=== PATIENT | male | born 1935 | race Caucasian/White ===

== ENCOUNTER 2016-09-01 12:12 | Outpatient (CLI) | payer MEDICARE, BC ==
[~2016-09-01] VITALS: Ht 177.8 cm; Wt 88.7 kg
[2016-09-01] VITALS (13 sets, daily range): BP systolic 100–125; BP diastolic 51–61; PULSE 57–71; RESP 15–22; TEMP 98.1; O2SAT 94–100; Ht 177.8 cm; Wt 88.7 kg
[~2016-09-01 12:12] MED LIST: ASPI-914 PO; CALC-586 PO; CLOB15CR5 TD; CYAN100063 PO; FERR324T6 PO; FISH1CAP59 PO; FURO40TA5 PO; INSU100C13 SQ; INSU3INS3 SQ; LEVO75TA57 PO; MAGN400C PO; METF-206 PO; NITR0.4T39 SL; OMEP-122 PO; SPIR50TA3 PO; TAMS0.4C47 PO; [UNRECOGNIZED DRUG - CODE] TD
--- NOTE | 2016-09-01 12:23 | NUR ---
ADMIT AMBULATORY TO ROOM 126 WITH DAUGHTER. O2 RA. PATIENT ALERT AND ORIENTED X3. PATIENT AND DAUGHTER ORIENTED TO SURROUNDINGS. BED IN LOWEST POSITION, CALL LIGHT WITHIN REACH, SIDE RAILS UP X2, BED ALARM ACTIVATED. MARSHAL HIGGINS (PRIMARY NURSE) NOTIFIED OF PATIENT'S ARRIVAL.
[2016-09-01 12:54] LABS: INR 1.1 (0.76-1.04)
[2016-09-01] MEDS ORDERED: NORMAL SALINE 100 ML ONE (13:12)
[2016-09-01] MEDS ORDERED: ALBUMIN HUMAN 25% 100 ML IV ONE (13:12)
--- NOTE | 2016-09-01 14:07 | NUR ---
OFF UNIT OFF UNIT VIA WHEELCHAIR WITH RADIOLOGY STAFF. O2 RA. IVL IN PLACE. MARSHAL HIGGINS NOTIFIED.
--- NOTE | 2016-09-01 15:45 | NUR ---
BACK TO UNIT PATIENT BACK TO UNIT AT THIS TIME. PATIENT AMBULATED FROM WHEELCHAIR TO BED. PATIENT VITALS ARE STABLE AND PATIENT IS ON ROOM AIR. PATIENT DENIES CP, NAUSEA, AND SOA.
[2016-09-01] MEDS ORDERED: ALBUMIN HUMAN 25% 50 ML IV ONE ×3 (16:00→18:00)
--- NOTE | 2016-09-01 16:17 | DI ---
Indication:ITS.REASON: R18.8; K74.60 Procedure:US GUIDE PARACENTESIS, INITIAL PARACENTESIS: The procedure including the benefits, risks, and alternatives were explained in detail to the patient. All of his questions were answered. He stated that they understood and wished to proceed. Informed consent was obtained. A preprocedural timeout was performed to confirm the correct patient and procedure. Using sterile technique, local xylocaine anesthesia, and sonographic guidance throughout, a paracentesis is done from a right lateral approach. 9650 ml of straw colored fluid was taken off without complication. Following this, the patient was taken to his recovery room to finish his albumin infusion. Impression: Successful thoracentesis performed with 9650 mL of fluid removed. Brendan Chappell RPA/ROBINSON performed this under my personal supervision. .
--- NOTE | 2016-09-01 18:15 | NUR ---
DISMISSAL DISCHARGE INSTRUCTIONS, MEDICATIONS, AND EDUCATION ON PARACENTESIS GIVEN AND DISCUSSED WITH PATIENT. DISCUSSED S/S OF INFECTION. ALL QUESTIONS AND CONCERNS ANSWERED. IVL D/C, CATHETER TIP INTACT. DISMISSED TO ER ENTRANCE VIA WHEELCHAIR WITH NURSING STAFF. DISMISSED WITH DAUGHTER PER PRIVATE OWN VEHICLE.
== END 2016-09-01 18:15 | disposition home or self-care (01) ==
LOC: IMA.BED 12:12 → SRG 12:17 → IMA.BED 18:15
PROVIDERS: ATTEND Radiology Diagnostic Radiology
DX: K74.60 Unspecified cirrhosis of liver (principal); R18.8 Other ascites
CPT/HCPCS: 36415; 49083; 85049; 85610; J7050; P9047

== ENCOUNTER 2016-09-08 12:40 | Outpatient (CLI) | payer MEDICARE, BC ==
[2016-09-08] VITALS (20 sets, daily range): BP systolic 91–132; BP diastolic 55–66; PULSE 56–64; RESP 18–22; TEMP 96.3–98.1; O2SAT 95–100
--- NOTE | 2016-09-08 12:50 | NUR ---
ADMIT PATIENT ADMITTED TO ROOM 134 AT THIS TIME. PATIENT VITALS ARE STABLE AND PATIENT IS ON ROOM AIR. PATIENT AMBULATED TO ROOM WITH NO ASSISTANCE. WILL CONTINUE TO MONITOR.
[2016-09-08 13:38] LABS: INR 1.06 (0.76-1.04); PROTHROMBIN TIME 11.6 SEC (9.31-12.49)
--- NOTE | 2016-09-08 15:00 | NUR ---
OFF UNIT PATIENT IS OFF UNIT AT THIS TIME. PATIENT LEFT VIA WHEELCHAIR AND IMAGING STAFF.
[2016-09-08] MEDS ORDERED: NORMAL SALINE 100 ML ONE (15:10)
[2016-09-08] MEDS ORDERED: ALBUMIN HUMAN 25% 12.5gm 50ml IV ONE (15:11)
--- NOTE | 2016-09-08 16:30 | NUR ---
BACK TO UNIT PATIENT BACK TO UNIT AT THIS TIME. PATIENT AMBULATED FROM US WHEELCHAIR TO BED. PATIENT VITALS ARE STABLE AND PATIENT IS ON ROOM AIR. WILL CONTINUE TO MONITOR.
--- NOTE | 2016-09-08 16:41 | DI ---
Indication:ITS.REASON Procedure:US GUIDE PARACENTESIS, SUBSEQ PARACENTESIS: The procedure including the benefits, risks, and alternatives were explained in detail to the patient. All of his questions were answered. He stated that they understood and wished to proceed. Informed consent was obtained. A preprocedural timeout was performed to confirm the correct patient and procedure. Using sterile technique, local xylocaine anesthesia, and sonographic guidance throughout, a paracentesis is done from a right lateral approach. 8400 ml of straw colored fluid was taken off without complication. Following this, the patient was taken back to his recovery room to finish his albumin infusion. Impression: Successful paracentesis performed with 8.4 L of fluid removed. Brendan Chappell RPA/ROBINSON performed this under my personal supervision. .
[2016-09-08] MEDS ORDERED: ALBUMIN HUMAN 25% 50 ML IV SCH (17:00)
--- NOTE | 2016-09-08 18:15 | NUR ---
DISCHARGE PATIENT IS ALERT AND ORIENTED X3. PATIENT VITALS ARE STABLE AND PATIENT IS ON ROOM AIR. PATIENT DENIES CP, NAUSEA, AND SOA. DISCHARGE INSTRUCTIONS INCLUDE: CONTINUES MEDICATIONS, DI FOR PARACENTESIS, ACTIVITY/BATHING, RETURN TO WORK, WHEN TO RESTART HOME MEDICATIONS, REASONS TO CALL DOCTOR AND OR SEEK IMMEDIATE CARE, INSERTION SITE CARE, AND SIGNS AND SYMPTOMS OF INFECTION. PERSONAL BELONGINGS RETURNED AND ID BAND REMOVED. IV DISCONTINUED. PATIENT LEFT VIA WHEELCHAIR FROM ER ENTRANCE WITH NURSING STAFF. PATIENT TRANSPORTED HOME FOR SELF CARE BY DAUGHTER.
== END 2016-09-08 18:15 | disposition home or self-care (01) ==
LOC: IMA.BED 12:40 → SRG 12:40 → IMA.BED 18:15
PROVIDERS: ATTEND Radiology Diagnostic Radiology
DX: K74.60 Unspecified cirrhosis of liver (principal); R18.8 Other ascites
CPT/HCPCS: 36415; 49083; 85049; 85610; J7050; P9047

== ENCOUNTER 2016-09-16 10:58 | Outpatient (CLI) | payer MEDICARE, BC ==
[~2016-09-16] VITALS: Ht 177.8 cm; Wt 81.4 kg
[2016-09-16] VITALS (18 sets, daily range): BP systolic 90–128; BP diastolic 52–71; PULSE 58–66; RESP 16–20; TEMP 97.9; O2SAT 99–100; Ht 177.8 cm; Wt 81.4 kg
--- NOTE | 2016-09-16 11:05 | NUR ---
ADMISSION PATIENT ADMITTED TO ROOM 120 AMBULATORY ACCOMPANIED BY FAMILY. IN NO ACUTE DISTRESS. ON ROOM AIR. WILL CONTINUE TO MONITOR.
[2016-09-16] MEDS ORDERED: ALBUMIN HUMAN 25% 200 ML IV ONE (12:20)
[2016-09-16] MEDS ORDERED: NORMAL SALINE 50 ML IV ONE (12:21)
--- NOTE | 2016-09-16 12:25 | NUR ---
TRANSFER PATIENT TRANSFERRED TO RADIOLOGY AT THIS TIME ON ROOM AIR. DENIES QUESTIONS OR CONCERNS.
[2016-09-16] MEDS ORDERED: ALBUMIN HUMAN 25% 12.5gm 50ml IV ONE (13:30)
--- NOTE | 2016-09-16 13:34 | NUR ---
CM CM IN TO VISIT WITH PT. HE IS AT PROCEDURE. HIS SON AND D-I-L ARE PRESENT. THEY DENY DC NEEDS. THEY ARE GIVEN CM CONTACT INFORMATION. Addendum: 09/16/16 at 1337 by SHELIA FORD RN Amended: Links added.
--- NOTE | 2016-09-16 14:00 | NUR ---
RETURN PATIENT RETURNED TO ROOM 120 VIA WHEELCHAIR ON ROOM AIR. BANDAID C/D/I. DENIES PAIN. DENIES SOB. STABLE AT THIS TIME. WILL CONTINUE TO MONITOR.
--- NOTE | 2016-09-16 14:29 | DI ---
Indication:ITS.REASON ascites Procedure:GUIDE PARACENTESIS, SUBSEQ PARACENTESIS: The procedure including the benefits, risks, and alternatives were explained in detail to the patient. All of his questions were answered. He stated that they understood and wished to proceed. Informed consent was obtained. A preprocedural timeout was performed to confirm the correct patient and procedure. Using sterile technique, local xylocaine anesthesia, and sonographic guidance throughout, a paracentesis is done from a right lateral approach. 8.2 liters of straw colored fluid was taken off without complication. Following this, the patient was taken back to his recovery room to finish his albumin infusion. Impression: Successful paracentesis performed with 8.2 L of fluid removed. Brendan Chappell RPA/ROBINSON performed this under my personal supervision. .
[2016-09-16] MEDS ORDERED: ALBUMIN HUMAN 25% 50 ML IV ONE ×4 (14:30→17:30)
[2016-09-16] MEDS ORDERED: ACETAMINOPHEN 325 MG TABLET PO PRN (15:00)
--- NOTE | 2016-09-16 16:25 | NUR ---
DISCHARGE DISMISSAL INSTRUCTIONS GIVEN AND REVIEWED WITH PATIENT AND FAMILY. INSTRUCTIONS INCLUDED DIET, ACTIVITY, DRESSING SITE CARE, S/S TO WATCH FOR, WHEN TO CALL DR OR 911, RESTRICTIONS, MEDICATIONS, EBSCO NOTES ON PARACENTESIS. BANDAID TO RIGHT LOWER BACK C/D/I. DENIES PAIN. DENIES QUESTIONS RO CONCERNS. VERBALIZED UNDERSTANDING OF ALL INSTRUCTIONS. IV DC'D -CATHETER TIP INTACT. PATIENT DISMISSED VIA WHEELCHAIR THROUGH ER EXIT ACCOMPANIED BY STAFF AND INTO VEHICLE WITH FAMILY.
== END 2016-09-16 16:30 | disposition home or self-care (01) ==
LOC: IMA.BED 10:58 → SRG 10:59 → IMA.BED 16:30
PROVIDERS: ATTEND Radiology Diagnostic Radiology
DX: R18.8 Other ascites (principal); K74.60 Unspecified cirrhosis of liver
CPT/HCPCS: 49083; J7050; P9047

== ENCOUNTER 2016-09-23 10:35 | Outpatient (CLI) | payer MEDICARE, BC ==
[2016-09-23] VITALS (12 sets, daily range): BP systolic 107–124; BP diastolic 56–64; PULSE 56–63; RESP 16–22; TEMP 97.2–98.1; O2SAT 99–100; Ht 177.8 cm; Wt 73.5 kg
[~2016-09-23] VITALS: Ht 177.8 cm; Wt 73.5 kg
[~2016-09-23 10:35] MED LIST changes: +ALBUMIN HUMAN 25% 12.5gm 50ml IV ONE
--- NOTE | 2016-09-23 10:45 | NUR ---
ARRIVAL PT AMBULATED TO ROOM 116. VS ASSESSED, INITIAL ASSESSMENT DONE. WILL START IV. PT RESTING IN BED WITH ALARM. CALL LIGHT WITHIN REACH.
[2016-09-23] MEDS ORDERED: ALBUMIN HUMAN 25% 200 ML IV ONE (11:46)
[2016-09-23] MEDS ORDERED: NORMAL SALINE 100 ML ONE (11:46)
--- NOTE | 2016-09-23 12:00 | NUR ---
OFF UNIT PT TO RADIOLOGY WITH MUNA ARAYA, C BY UNIT.
[2016-09-23] MEDS ORDERED: ALBUMIN HUMAN 25% 12.5gm 50ml IV ONE (12:45)
--- NOTE | 2016-09-23 13:38 | NUR ---
ARRIVAL PT TO ROOM 116 BY WHEELCHAIR ACCOMPANIED BY MUNA ARAYA C. VS STABLE. ALBUMNIN RUNNING. PT RESTING IN BED WITH ALARM. CALL LIGHT WITHIN REACH. WILL CONTINUE TO MONITOR.
--- NOTE | 2016-09-23 13:55 | DI ---
Indication: ITS.REASON: K74.60 PROCEDURE: US GUIDE PARACENTESIS, INITIAL: Encounter: Initial Comparison: September 16, 2016 PARACENTESIS: The procedure including the benefits, risks, and alternatives were explained in detail to the patient. All of his questions were answered. He stated that they understood and wished to proceed. Informed consent was obtained. A preprocedural timeout was performed to confirm the correct patient and procedure. Using sterile technique, local xylocaine anesthesia, and sonographic guidance throughout, a paracentesis is done from a left lateral approach. 8.2 liters of straw colored fluid was taken off without complication. Following this, the patient was taken back to his recovery room to finish his albumin infusion. Impression: Successful paracentesis performed with 8.2 L of fluid removed. .
[2016-09-23] MEDS: ALBUMIN HUMAN 25% 50 ML IV SCH ×2 (14:00→15:06)
[2016-09-23] MEDS ORDERED: ALBUMIN HUMAN 25% 50 ML IV SCH (14:00)
--- NOTE | 2016-09-23 16:36 | NUR ---
DISCHARGE PT DISCHARGED TO HOME IN GOOD CONDITION. DISCHARGE INSTRUCTIONS REVIEWED AND PT/FAMILY VERBALIZED UNDERSTANDING. IV REMOVED. PT TOLERATED ALBUMIN WELL. PT EXITED THROUGH ED ENTRANCE.
== END 2016-09-23 16:21 | disposition home or self-care (01) ==
LOC: IMA.BED 10:35 → SRG 10:35 → IMA.BED 16:21
PROVIDERS: ATTEND Radiology Diagnostic Radiology
DX: K74.60 Unspecified cirrhosis of liver (principal); R18.8 Other ascites
CPT/HCPCS: 49083; J7050; P9047

== ENCOUNTER 2016-09-30 07:43 | Outpatient (CLI) | payer MEDICARE, BC ==
[2016-09-30] VITALS (19 sets, daily range): BP systolic 94–127; BP diastolic 55–69; PULSE 56–73; RESP 16–24; TEMP 96–96.1; O2SAT 100; Ht 177.8 cm; Wt 74.1 kg
[~2016-09-30] VITALS: Ht 177.8 cm; Wt 74.1 kg
[~2016-09-30 07:43] MED LIST changes: -ALBUMIN HUMAN 25% 12.5gm 50ml IV ONE
--- NOTE | 2016-09-30 07:50 | NUR ---
ARRIVED PT ARRIVED TO ROOM VIA AMBULATION WITH FAMILY PRESENT. PT GETTING SETTLED IN ROOM AT THIS TIME.
[2016-09-30 08:37] LABS: INR 1.12 (0.76-1.04); PROTHROMBIN TIME 12.2 SEC (9.31-12.49)
[2016-09-30] MEDS ORDERED: ALBUMIN HUMAN 25% 100 ML IV ONE (09:29)
[2016-09-30] MEDS ORDERED: ALBUMIN HUMAN 25% 50 ML IV ONE ×3 (09:29→13:15)
[2016-09-30] MEDS ORDERED: NORMAL SALINE 50 ML IV ONE (09:29)
--- NOTE | 2016-09-30 10:00 | NUR ---
TO RADIOLOGY Patient transported to radiology for ultrasound guided paracentesis procedure. Patient has been fully admitted and consent signed. Patient has had this procedure previously and is aware of what to expect and the recovery expectations. These were reviewed and he expressed no further questions. Education Carenotes were given on Paracentesis. Patient is accompanied by his daughter who will wait in the room.
--- NOTE | 2016-09-30 11:47 | DI ---
Indication:ITS.REASON: ASCITES, CIRRHOSIS Procedure:US GUIDE PARACENTESIS, SUBSEQ PARACENTESIS: The procedure including the benefits, risks, and alternatives were explained in detail to the patient. All of his questions were answered. He stated that they understood and wished to proceed. Informed consent was obtained. A preprocedural timeout was performed to confirm the correct patient and procedure. Using sterile technique, local xylocaine anesthesia, and sonographic guidance throughout, a paracentesis is done from a right lateral approach. 6700 ml of straw colored fluid was taken off without complication. Following this, the patient was taken back to his recovery room to finish his albumin infusion. Impression: Successful paracentesis with 6700 mL of fluid removed. Brendan Chappell RPA/ROBINSON performed this under my personal supervision. .
--- NOTE | 2016-09-30 13:53 | NUR ---
CM CM IN TO VISIT WITH PT. HE IS ALERT AND ORIENTED. HIS DAUGHTER IS PRESENT. THEY DENY DC NEEDS. PT PLANS TO RETURN HOME. THEY ARE GIVEN CM CONTACT INFORMATION. Addendum: 09/30/16 at 1353 by SHELIA FORD RN Amended: Links added.
--- NOTE | 2016-09-30 13:59 | NUR ---
DM screen RD visited with patient, who was in bed, and his daughter was at his bedside. He has had DM many years and manages with basal/bolus inulin. he eats 3 meals daily and usually drinks water and one SF soda daily. He checks his BG twice daily, and has juice and milk on hand for hypoglycemia.
--- NOTE | 2016-09-30 14:45 | NUR ---
DISCHARGE Chris discharged to home in care of his daughter who will drive. Transported to vehicle per wheelchair after being up to void without lightheadedness and a short walk in the hallways assisted by nurse jonathon Boo. Blood pressure recheck after a systolic pressure in the mid 90's (asymptomatic) was improved. Procedure site was rechecked prior to discharge and bandaid is clean, dry and intact. Patient denies pain or abdominal cramping. 4 vials of Albumin were infused in total per order, and patient tolerated this well. Lungs were clear after the infusions. Discharge teaching was completed and we reviewed the information in the discharge packet together, including signs and symptoms to report to the physician or to seek immediate care for. Patient and daughter verbalized understanding. Regarding diabetes, the patient declined to take any insulin with the sandwich and jello that he ate, and was uncertain as to the actual dose of his Lantus. He was encouraged to check his blood sugar and resume his Novolog with supper rather than waiting for his insulins to resume until the morning. He was also encouraged to verify his home Lantus dose and bring that on his next visit so that we can make sure that this is correct in our system. Verbalized understanding. He understands that he should restart the aspirin that was on hold for the procedure starting tomorrow morning.
== END 2016-09-30 14:45 | disposition home or self-care (01) ==
LOC: IMA 07:43 → SRG 07:45 → IMA 14:45
PROVIDERS: ATTEND Radiology Diagnostic Radiology
DX: R18.8 Other ascites (principal); K74.60 Unspecified cirrhosis of liver
CPT/HCPCS: 36415; 49083; 85049; 85610; J7050; P9047

== ENCOUNTER 2016-10-07 08:23 | Outpatient (CLI) | payer MEDICARE, BC ==
[~2016-10-07] VITALS: Ht 177.8 cm; Wt 73.4 kg
[2016-10-07] VITALS (19 sets, daily range): BP systolic 90–126; BP diastolic 44–64; PULSE 58–71; RESP 16–41; TEMP 97–97.1; O2SAT 98–100; Ht 177.8 cm; Wt 73.4 kg
--- NOTE | 2016-10-07 08:30 | NUR ---
ARRIVAL AMBULATORY TO ROOM 123. O2 RA. PATIENT ALERT AND ORIENTED X3.
[2016-10-07] MEDS ORDERED: ALBUMIN HUMAN 25% 200 ML IV ONE (09:02)
--- NOTE | 2016-10-07 10:00 | NUR ---
TO RADIOLOGY PT TRANSPORTED TO RADIOLOGY AT THIS TIME VIA WHEELCHAIR AND ACCOMPANIED BY STAFF. PT ALERT AND ORIENTED. VITAL SIGNS STABLE ON ROOM AIR. WILL CONTINUE TO MONITOR.
[2016-10-07] MEDS ORDERED: NORMAL SALINE 50 ML IV ONE (10:13)
--- NOTE | 2016-10-07 11:50 | NUR ---
RETURN PT TO ROOM 123 BY WHEELCHAIR ACCOMPANIED BY IMAGING. PT TRANSFERRED SELF FROM WHEELCHAIR TO BED.VS STABLE. PT RESTING IN BED WITH ALARM. CALL LIGHT WITHIN REACH. WILL CONTINUE TO MONITOR.
[2016-10-07] MEDS: ALBUMIN HUMAN 25% 50 ML IV SCH ×2 (12:42→13:45)
--- NOTE | 2016-10-07 13:09 | DI ---
Indication:ITS.REASON: R18.8 ASCITES; K74.60 CIRRHOSIS Procedure:US GUIDE PARACENTESIS, INITIAL PARACENTESIS: The procedure including the benefits, risks, and were explained in detail to the patient. All of his questions were answered. He stated that they understood and wished to proceed. Informed consent was obtained. A preprocedural timeout was performed to confirm the correct patient and procedure. Using sterile technique, local xylocaine anesthesia, and sonographic guidance throughout, a paracentesis is done from a right lateral approach. 7.5 liters of straw colored fluid was taken off without complication. Following this, the patient was taken back to his recovery room to finish his albumin infusion. Impression: Successful paracentesis performed with 7.5 L of fluid removed. Brendan Chappell RPA/ROBINSON performed this under my personal supervision. .
[2016-10-07] MEDS ORDERED: ACETAMINOPHEN 325 MG TABLET PO PRN (14:00)
--- NOTE | 2016-10-07 14:53 | NUR ---
DISCHARGE INSTRUCTIONS REVIEWED ABD PARACENTESIS WITH PT AND SON. PT'S QUESTIONS ANSWERED AND PT VERBALIZED UNDERSTANDING. PT RESTING IN BED. CALL LIGHT WITHIN REACH. WILL CONTINUE TO MONITOR.
--- NOTE | 2016-10-07 15:15 | NUR ---
DISCHARGE PT EXITED BY WHEELCHAIR ACCOMPANIED BY SON AND NURSING STAFF. PACKET GIVEN TO PT.
== END 2016-10-07 15:02 | disposition home or self-care (01) ==
LOC: IMA 08:23 → SRG 08:24 → IMA 15:02
PROVIDERS: ATTEND Radiology Diagnostic Radiology
DX: R18.8 Other ascites (principal); K74.60 Unspecified cirrhosis of liver
CPT/HCPCS: 49083; J7050; P9047

== ENCOUNTER 2016-10-14 10:51 | Outpatient (CLI) | payer MEDICARE, BC ==
[2016-10-14] VITALS (19 sets, daily range): BP systolic 95–124; BP diastolic 54–67; PULSE 54–64; RESP 16–27; TEMP 96.6–96.7; O2SAT 98–100; Ht 177.8 cm; Wt 81.0 kg
[~2016-10-14] VITALS: Ht 177.8 cm; Wt 81.0 kg
--- NOTE | 2016-10-14 11:00 | NUR ---
ADMIT PATIENT ARRIVES TO ROOM 133 AT THIS TIME. AMBULATES INDEPENDENTLY. PATIENT IS SETTLE IN ROOM. FAMILY AT BEDSIDE
--- NOTE | 2016-10-14 11:00 | NUR ---
Admit Pt admitted to room 133 for procedure. Pt ambulated to room, co soa/difficulty breathing.
[2016-10-14] MEDS ORDERED: INSU100I3 SQ (11:21)
--- NOTE | 2016-10-14 12:00 | NUR ---
CONSENT SIGNED FOR ULTRA SOUND GUIDED PARACENTESIS.
--- NOTE | 2016-10-14 12:45 | NUR ---
PROCEDURE PATIENT LEAVES FOR A PROCEDURE AT THIS TIME.
[2016-10-14] MEDS ORDERED: ALBUMIN HUMAN 25% 200 ML IV ONE (12:47)
[2016-10-14] MEDS ORDERED: NORMAL SALINE 50 ML IV ONE (12:47)
[2016-10-14] MEDS ORDERED: ALBUMIN HUMAN 25% 12.5gm 50ml IV ONE (13:30)
--- NOTE | 2016-10-14 13:53 | NUR ---
PATIENT RETURNED 6.5L FLUID REMOVED. PATIENT SETTLES BACK IN ROOM 133. NO CONCERNS NOTED. VSS. DRESSING INTACT TO RIGHT ABDOMEN
[2016-10-14] MEDS ORDERED: ALBUMIN HUMAN 25% 50 ML IV ONE (15:00)
--- NOTE | 2016-10-14 15:26 | DI ---
Indication:ITS.REASON: ASCITES, CIRRHOSIS Procedure:US GUIDE PARACENTESIS, INITIAL PARACENTESIS: The procedure including the benefits, risks, and alternatives were explained in detail to the patient. All of his questions were answered. He stated that they understood and wished to proceed. Informed consent was obtained. A preprocedural timeout was performed to confirm the correct patient and procedure. Using sterile technique, local xylocaine anesthesia, and sonographic guidance throughout, a paracentesis is done from a right lateral approach. 6500 ml of straw colored fluid was taken off without complication. Following this, the patient was taken back to his recovery room to finish his albumin infusion. Impression: Successful paracentesis performed with 6500 mL of fluid removed. Brendan Chappell RPA/ROBINSON performed this under my personal supervision. .
--- NOTE | 2016-10-14 17:45 | NUR ---
DISCHARGED PATIENT DISCHARGE AND MEDICATION INSTRUCTIONS ARE GIVE. PATIENT IS WHEELED BY STAFF OUT TO FAMILY VEHICLE ACCOMPANIED BY SON AND DAUGHTER IN-LAW. ALBUMIN 25% 50GMS COMPLETED INFUSING. PATIENT QUESTIONS ARE ANSWERED.
[2016-10-14] MEDS ORDERED: ACETAMINOPHEN 325 MG TABLET PO PRN (18:15)
--- NOTE | 2016-10-18 11:15 | NUR ---
ATTEMPTED POST HOSPITAL FOLLOW UP PHONE CALL #1, NO ANSWER, VOICE MESSAGE MAILBOX IS FULL AND UNABLE TO LEAVE A MESSAGE.
== END 2016-10-14 17:45 | disposition home or self-care (01) ==
LOC: IMA 10:51 → SRG 10:52 → IMA 17:45
PROVIDERS: ATTEND Radiology Diagnostic Radiology
DX: R18.8 Other ascites (principal); K74.69 Other cirrhosis of liver
CPT/HCPCS: J7050; P9047

== ENCOUNTER 2016-10-21 10:49 | Outpatient (CLI) | payer MEDICARE, BC ==
[~2016-10-21] VITALS: Ht 177.8 cm; Wt 77.7 kg
[2016-10-21] VITALS (8 sets, daily range): BP systolic 106–122; BP diastolic 56–65; PULSE 55–61; RESP 14–22; TEMP 96.2; O2SAT 99–100; Ht 177.8 cm; Wt 77.7 kg
[~2016-10-21 10:49] MED LIST changes: -INSU100C13 SQ; +INSU100I3 SQ
--- NOTE | 2016-10-21 10:55 | NUR ---
Admit Pt admitted to room 109 at this time. Pt ambulatory and denies SOA/difficulty breathing.
[2016-10-21] MEDS ORDERED: ALBUMIN HUMAN 25% 50 ML IV ONE ×4 (11:30→15:00)
--- NOTE | 2016-10-21 11:31 | NUR ---
CM CM VISITED PT AND DAUGHTER. CM EXPLAINED ROLE AND PROVIDED CONTACT INFORMATION. PT DENIES NEEDS. PT/DAUGHTER AWARE TO CONTACT CM IF NEEDS ARISE.
--- NOTE | 2016-10-21 12:34 | NUR ---
OFF UNIT PATIENT IS OFF UNIT AT THIS TIME. PATIENT IS ALERT AND ORIENTED X3. PATIENT LEFT VIA WHEELCHAIR AND IMAGING STAFF.
[2016-10-21] MEDS ORDERED: ALBUMIN HUMAN 25% 100 ML IV ONE (12:38)
--- NOTE | 2016-10-21 13:45 | NUR ---
BACK TO UNIT PATIENT IS BACK TO UNIT AT THIS TIME. PATIENT VITALS ARE STABLE AND PATIENT IS ON ROOM AIR.
--- NOTE | 2016-10-21 14:25 | DI ---
Indication:ITS.REASON: R18.8; K74.0 Procedure:US GUIDE PARACENTESIS, INITIAL PARACENTESIS: The procedure including the benefits, risks, and alternatives were explained in detail to the patient. All of his questions were answered. He stated that they understood and wished to proceed. Informed consent was obtained. A preprocedural timeout was performed to confirm the correct patient and procedure. Using sterile technique, local xylocaine anesthesia, and sonographic guidance throughout, a paracentesis is done from a right lateral approach. 5200 ml of straw colored fluid was taken off without complication. Following this, the patient was taken back to his recovery room to finish his albumin infusion. Impression: Successful paracentesis performed with 5200 mL of fluid removed. Brendan Chappell RPA/ROBINSON performed this under my personal supervision. .
[2016-10-21] MEDS ORDERED: ALBUMIN HUMAN 25% 12.5gm 50ml IV ONE (14:48)
--- NOTE | 2016-10-21 15:40 | NUR ---
Discharge Pt discharged home to care of family. Discharge instructions reviewed and hard copies given. Activity guidelines, s/sx to report, medications, follow-up appointments and diet reviewed. Pt verbalized understanding. Pt denies SOA/difficulty breathing, CP, N/V. Pt in stable condition. Wheeled to ED entrance to family vehicle.
== END 2016-10-21 15:40 | disposition home or self-care (01) ==
LOC: IMA 10:49 → SRG 10:50 → IMA 15:40
PROVIDERS: ATTEND Radiology Diagnostic Radiology
DX: R18.8 Other ascites (principal); K72.90 Hepatic failure, unspecified without coma
CPT/HCPCS: P9047 ×4

== ENCOUNTER 2016-10-28 10:58 | Outpatient (CLI) | payer MEDICARE, BC ==
[2016-10-28] VITALS (13 sets, daily range): BP systolic 97–127; BP diastolic 54–64; PULSE 55–65; RESP 15–19; TEMP 95.9–97.5; O2SAT 99–100; Ht 177.8 cm; Wt 73.4 kg
[~2016-10-28] VITALS: Ht 177.8 cm; Wt 73.4 kg
--- NOTE | 2016-10-28 11:05 | NUR ---
ADMIT PT AMBULATORY TO ROOM 132. SON ATTENDING.
[2016-10-28] MEDS: ALBUMIN HUMAN 25% 200 ML IV SCH ×3 (11:23→14:05)
--- NOTE | 2016-10-28 12:44 | NUR ---
LEFT UNIT PT LEFT UNIT TO IMAGING WITH LEIGH COOK. ALBUMIN RUNNING AT THIS TIME.
[2016-10-28] MEDS ORDERED: ALBUMIN HUMAN 25% 100 ML IV ONE (13:07)
[2016-10-28] MEDS ORDERED: ALBUMIN HUMAN 25% 12.5gm 50ml IV ONE (14:00)
[2016-10-28] MEDS ORDERED: POTASSIUM PO (14:55)
--- NOTE | 2016-10-28 15:02 | NUR ---
RETURN RETURNED TO ROOM 132 PER W/C. WAS ABLE TO STAND AND PIVOT TO S.U. BED. PUNCTURE SITE COVERED WITH D&I BAND AIDE
[2016-10-28] MEDS ORDERED: NORMAL SALINE 500 ML IV ONE (15:30)
--- NOTE | 2016-10-28 16:01 | DI ---
Indication:ITS.REASON: ASCITES Procedure:US GUIDE PARACENTESIS, SUBSEQ PARACENTESIS: The procedure including the benefits, risks, and alternatives were explained in detail to the patient. All of his questions were answered. He stated that they understood and wished to proceed. Informed consent was obtained. A preprocedural timeout was performed to confirm the correct patient and procedure. Using sterile technique, local xylocaine anesthesia, and sonographic guidance throughout, a paracentesis is done from a right lateral approach. 5400 ml of straw colored fluid was taken off without complication. Following this, the patient was taken back to his recovery room to finish his albumin infusion. Impression: Successful paracentesis performed with 5400 mL of fluid removed. Brendan Chappell RPA/ROBINSON performed this under my personal supervision. .
--- NOTE | 2016-10-28 17:00 | NUR ---
DISMISSAL WENT OVER WRITTEN DISMISSAL INSTRUCTIONS WITH PT AND PT'S SON INCLUDING DIET, ACTIVITY, S/SX TO REPORT, WOUND CARE. BOTH VERBALIZED UNDERSTANDING. PT'S PERSONAL BELONGINGS GATHERED. PT TAKEN OUT OF [place] [facility] [place] ENTRANCE FOR TRANSPORT HOME BY SON.
== END 2016-10-28 17:00 | disposition home or self-care (01) ==
LOC: SRG 10:58 → IMA.BED 10:58 → SRG 10:59 → IMA.BED 17:00
PROVIDERS: ATTEND Radiology Diagnostic Radiology
DX: R18.8 Other ascites (principal); K74.0 Hepatic fibrosis
CPT/HCPCS: 49083; P9047

== ENCOUNTER 2016-11-04 14:25 | Inpatient (IN) | payer MEDICARE, BC ==
[~2016-11-04] VITALS: Ht 177.8 cm; Wt 77.9 kg
[~2016-11-04 14:25] MED LIST changes: -ASCO500T9 PO
[2016-11-04 14:38] VITALS: Ht 177.8 cm; Wt 77.9 kg
--- OUTSIDE RECORDS SUMMARY | 2016-11-04 14:40 | XMS REPORT | CCD ---
Author Author GIBRAN GARCIA Organization Unknown Address [address], [place] [id number] Phone 0 Care Team Providers Care Infusion Therapy Nurse Name Role Phone Calvin KUMAR Attending Physician [phone] Vital Signs Unknown or Not Available. Allergies Allergy Code Allergy Type Reaction Status No Known Allergies 0 No known allergies Active Procedures Unknown or Not Available. History of Immunizations Immunization Code Date influenza, whole 16 03/19/2015 pneumococcal polysaccharide PPV23 33 09/1998 tetanus toxoid, adsorbed 35 06/22/2016 Problems Unknown or Not Available. Results PSA - Collect Date/Time: 07/26/2016 14:55 Test Name Code Test Result Test Units Test Ref Range PSA 3.16 ng/mL L=0.00 H=4.00 Active Medications Unknown or Not Available. Medications Administered During Visit Unknown or Not Available. Encounters Unknown or Not Available. Social History Smoking Status Code Start Date End Date Never smoker [id number] Patient Decision Aids Unknown or Not Available. Discharge Instructions You were admitted to [facility] on 07/26/2016 14:37 You had the following tests done: PSA You were discharged from [facility] on 07/26/2016 14:37 Should you have any questions prior to discharge, please contact a member of your healthcare team. If you have left the hospital and have any questions, please contact your primary care physician. Chief Complaint and Reason For Visit Chief Complaint Date of Onset LAB Function Status Unknown or Not Available. Plan of Care Unknown or Not Available. Referral/Transition of Care Unknown or Not Available.
--- OUTSIDE RECORDS SUMMARY | 2016-11-04 14:41 | XMS REPORT | CCD ---
Author Author GIBRAN GARCIA Organization Unknown Address [address], [place] [id number] Phone 0 Care Team Providers [facility] Director Name Role Phone LASHA FARRIS Attending Physician [phone] Vital Signs Unknown or Not Available. Allergies Allergy Code Allergy Type Reaction Status No Known Allergies 0 No known allergies Active Procedures Unknown or Not Available. History of Immunizations Immunization Code Date influenza, whole 16 03/19/2015 pneumococcal polysaccharide PPV23 33 09/1998 Problems Unknown or Not Available. Results COMP METABOLIC - Collect Date/Time: 09/22/2015 15:29 Test Name Code Test Result Test Units Test Ref Range GLUCOSE 114 mg/dL L=70 H=110 BUN 8 mg/dL L=7 H=18 CREATININE 1.00 mg/ dL L=0.60 H=1.30 AGE 80 YEARS GFR 71.7 SODIUM 142 mmol/L L=136 H=145 POTASSIUM 4.2 mmol/ L L=3.5 H=5.1 CHLORIDE 105 mmol/L L=98 H=107 CO2 32 mmol/L L=21 H=32 CALCIUM 8.7 mg/dL L=8.5 H=10.1 AST 28 U/L L=15 H=37 ALT 25 U/L L=12 H=78 ALKALINE PHOS 137 U/ L L=46 H=116 TOTAL PROTEIN 6.6 g/ dL L=6.4 H=8.2 ALBUMIN 3.0 g/dL L=3.4 H=5.0 TOTAL BILI 0.60 mg/ dL L=0.00 H=1.00 CBC W/ DIFF - Collect Date/Time: 09/22/2015 15:29 Test Name Code Test Result Test Units Test Ref Range WBC 3.4 x10^3 L=4.8 H=10.8 RBC 3.57 x10^6 L=4.70 H=6.10 HEMOGLOBIN 10.5 g/ dL L=14.0 H=18.0 HEMATOCRIT 31.6 % L=42.0 H=52.0 MCV 89 fL L=80 H=100 MCH 29.6 pg L=27.0 H=33.0 MCHC 33.4 g/dL L=33.0 H=37.0 RDW 16.4 % L=11.5 H=14.5 PLATELETS 146 x10^3 L=150 H=450 MPV 6.8 fL L=7.8 H=11.0 NEUTROPHILS 50.1 % L=40.0 H=80.0 LYMPHOCYTES 36.6 % L=20.0 H=45.0 MONOCYTES 10.2 % L=0.0 H=10.0 EOSINOPHILS 2.2 % L=0.0 H=5.0 BASOPHILS 0.9 % L=0.0 H=2.0 REFLEX MAN DIFF NO N /A PT/INR - Collect Date/Time: 09/22/2015 15:29 Test Name Code Test Result Test Units Test Ref Range PT 10.2 Secs L=9.2 H=10.8 INR 1.02 L=0.00 H=4.00 PTT - Collect Date/Time: 09/22/2015 15:29 Test Name Code Test Result Test Units Test Ref Range PTT 27.0 Secs L=22.0 H=30.0 AMMONIA - Collect Date/Time: 09/22/2015 15:29 Test Name Code Test Result Test Units Test Ref Range AMMONIA 0 umol/L L=19 H=54 Active Medications Unknown or Not Available. Medications Administered During Visit Unknown or Not Available. Encounters Encounter Diagnosis Diagnosis Code Start Date Other ascites R188 09/22/2015 Social History Smoking Status Code Start Date End Date Never smoker [id number] Patient Decision Aids Unknown or Not Available. Discharge Instructions You were admitted to [facility] on 09/22/2015 15:20 with a principal diagnosis of Other ascites You had the following tests done: AMMONIA CBC W/ DIFF COMP METABOLIC PT/INR PTT You were discharged from [facility] on 09/22/2015 15:20 Should you have any questions prior to [...]
--- OUTSIDE RECORDS SUMMARY | 2016-11-04 14:41 | XMS REPORT | Continuity of Care Document ---
Author Author [facility] Organization [facility] Address Unknown Phone Unavailable Support Name Relationship Address Phone JITENDRA WHYTE MD Caregiver [address] [facility] [place] [address] Unavailable MELISSA FARRIS "LASHA" Caregiver [address] [place] [address] Unavailable RADHA GAONA Next Of Kin [address] [place], [place] [address] Insurance Providers Guarantor Chris Gaona Address [address] [place] [address] C Email DENIED16 [facility] Policy Number [id number] Subscriber's Name Chris Gaona Relationship 18 Self Group Number [id number] Payer Medicare Policy Number [id number] Subscriber's Name Chris Gaona Relationship 18 Self Advance Directives Directive Response Recorded Date/Time Ordered Resuscitation Status Full Code 08/05/16 6:54am Resuscitation Documents on File Yes 08/05/16 11:41am DPOA for Healthcare Only Y DONNY CHUNG 08/05/16 11:41am Living Will Yes 08/05/16 11:41am Problems Active Problems Medical Problem Onset Date Status Acid reflux Unknown Resolved CAD (coronary artery disease) Unknown Chronic Chest pain Unknown Resolved Medications Current Home Medications Medication Dose Units Route Directions Days Qty Instructions Start Date Aspirin (Low Dose Aspirin Ec) 81 Mg Tablet. 1 Tab Oral Daily 30 Tablet 04/12/16 Bicalutamide 50 Mg Tablet 1 Tab Oral Daily 12/30/14 Calcium Carbonate/Vitamin D3 (Calcium + D 600 Mg Tablet) 1 Tab Tablet 1 Tab Oral Twice A Day 02/03/09 Carmol Cream 1 Applic Topically As Needed 12/30/14 Cyanocobalamin (Vitamin B-12) 1,000 Mcg Tablet 1,000 Mcg Oral Daily 12/12/11 Ferrous Sulfate 324 Mg Tablet 324 Mg Oral Daily 09/08/11 Fish Oil/Dha/Epa (Fish Oil 1,200 Mg Fish Oil) 1 Each Capsule 2 Tab Oral Daily 12/30/14 Furosemide 40 Mg Tablet 1 Tab Oral Daily 04/12/16 Insulin Glargine,Hum.rec.anlog (Lantus Solostar) 1 Unit Pen 8 Unit Sub-Q Daily 15 05/05/16 Insulin Lispro (Humalog) 100 U/Ml Cartridge 4 Unit Sub-Q Twice A Day 12/12/11 Levothyroxine Sodium (Synthroid) 75 Mcg Tablet 75 Mcg Oral Daily 09/08/11 Magnesium Oxide (Magnesium) 400 Mg Capsule 1 Tab Oral Daily 12/30 Metformin Hcl 1,000 Mg Tablet 500 Mg Oral Twice A Day instructed not to take metformin evening before OR 02/03/09 Nitroglycerin 0.4 Mg Tab.subl 0.4 Mg Sublingual as needed for Chest Tightness 04/12/16 Omeprazole 20 Mg Tablet.dr 40 Mg Oral Daily Take 1 tablet, by mouth , one time a day with breakfast. 12/30/14 Spironolactone 50 Mg Tablet 50 Mg Oral Daily 04/12/16 Tamsulosin Hcl 0.4 Mg Cap.er.24h 0.4 Mg Oral Daily Take 1 capsule, by mouth, 1 time a day (at BEDTIME). 04/12/16 Past Home Medications Medication Directions Ordered Status Aspirin 81 Mg Tablet, 81 Mg Oral Daily 09/08/11 Discontinued Atenolol 100 Mg Tablet, 100 Mg Oral Daily 09/08/11 Discontinued Glipizide 10 Mg Tablet, 10 Mg Oral Twice A Day 02/03/09 Discontinued Insulin Glulisine (Apidra) 100 U/Ml Cartridge, 1 - 2 U Sub-Q Daily 09/08/11 Discontinued Isosorbide Mononitrate 30 Mg Tab.sr.24h, 30 Mg Oral Daily 12/12/11 Discontinued Leuprolide Acetate (Lupron) 1 Mg/0.2 Ml/Kit Kit, 1 Mg Sub-Q 09/08/11 Discontinued Lisinopril 20 Mg Tablet, 20 Mg Oral Daily 09/08/11 Discontinued Multivitamins (Multivitamin) 1 Tab Tablet, 1 Tab Oral Daily 02/03/09 Discontinued Naproxen Sodium (Aleve) 220 Mg Tablet, 220 Mg Oral Daily 02/03/09 Discontinued Niacin 400 Mg Capsule.sa, 500 Mg Oral 3 Tabs Daily 02/03/09 Discontinued Urea (Carmol 40) 28.35 Gm Cr, 28.35 Gm Topical Twice A Day 09/08/11 Discontinued Social History Social History Problem Response Recorded Date/Time Onset Date Status Reason for Hospitalization CIRRHOSIS 08/05/2016 6:26pm Not Applicable Not Applicable Hx Substance Use No 08/05/2016 11:43am Not Applicable Not Applicable Hx Alcohol Use No 08/05/2016 11:43am Not Applicable Not Applicable Has the pt used tobacco in the last 12 months No 08/05/2016 11:46am Not Applicable Not Applicable Query Response Start Date Stop Date Smoking Status Unknown if ever smoked Hospital Discharge Instructions Instructions: Care Instructions: I was in the hospital because (patient own words): TO GET MY BELLY PUMPED OUT Discharge Diet: ADVACED TOLERATED TO PRE ADMIT DIET Discharge Activity: TOLERATED Follow Up Appointments: N/A Pending Lab / Results: No Pending Lab Patient Instructions: MAY RESTART STOPPED MEDICATIONS ON 08/06/16. MAY RETURN TO WORK THE NEXT DAY. MAY START DRIVING ON 08/06/16. MAY SHOWER OR BATHE 08/06/16. Expected Signs/Symptoms: SEE DISCHARGE PARACENTESIS INSTRUCTIONS Notify Physician If: SEE DISCHARGE PARACENTESIS INSRTUCTIONS During Business Hours:: Please call the physician's office at After Business Hours:: Please call [phone] and have the bench shear operator page the physician. Pain Management/Treatment: N/A Wound/Incision Care: N/A Condition at time of discharge: Good Plan of Care Discharge Date 08/05/16 7:30pm Instructions/Education Provided Abdominal Paracentesis (DC) Prescriptions See Medication Section Functional Status Query Response Date Recorded Mobility Status Ambulatory August 05, 2016 1:54pm Assistive Devices None August 05, 2016 1:54pm Activity Limitations Weakness August 05, 2016 1:54pm Feeding Ability Independent August 05, 2016 1:54pm Toileting Ability Independent August 05, 2016 1:54pm Grooming Ability Independent August 05, 2016 1:54pm Dressing Ability Independent August 05, 2016 1:54pm Driving Ability Dependent August 05, 2016 1:54pm Housework Ability Assist August 05, 2016 1:54pm Meal Preparation Ability Assist August 05, 2016 1:54pm Stair Climbing Ability Assist August 05, 2016 1:54pm Ability to complete ADL's impeded by No change August 05, 2016 1:54pm Cognitive/Perceptual Impairments None August 05, 2016 1:54pm Preferred Method of Learning Reading Listening August 05, 2016 1:54pm Allergies, Adverse Reactions, Alerts Allergen Type Severity Reaction Status Last Updated Morphine Allergy Unknown HALLUCINATIONS Active 08/05/16 Immunizations Query Response on File Recorded Date/Time Hx Influenza Vaccination Y MARCH 2016 08/05/16 11:46am Hx Pneumococcal Vaccination Y MARCH 2016 08/05/16 11:46am Hx Influenza Vaccination Y MARCH 2016 08/05/16 11:46am Influenza Vaccine Hx FEB 2016 07/13/16 11:37am Vital Signs Acute Vital Signs Vital Response Date/Time Temperature (Fahrenheit) 95.9 deg F (96.8 - 99.1) 08/05/2016 3:10pm Temperature (Calculated Celsius) 35.31992 degrees C (36.0 - 37.3) 08/05/2016 3:10pm Temperature Source Oral 08/05/2016 3:10pm Pulse Rate (adult) 66 bpm (60 - 100) 08/05/2016 4:40pm Respiratory Rate 18 breaths/min (10 - 20) 08/05/2016 3:40pm O2 Sat by Pulse Oximetry 98 % (90 - 100) 08/05/2016 4:40pm Oxygen Delivery Method Room Air 08/05/2016 4:40pm Oxygen Delivery Method Room Air 08/05/2016 12:10pm Blood Pressure 103/60 mm Hg 08/05/2016 4:40pm Blood Pressure Source Automatic Cuff 08/05/2016 4:40pm Height (Feet) 5 feet 08/05/2016 11:38am Height (Inches) 10.00 inches 08/05/2016 11:38am Weight (Kilograms) 78.500 kg 08/05/2016 3:19pm Body Mass Index (BMI) 27.4 08/05/2016 11:38am Results Laboratory Results Test Name Result Units Flags Reference Collection Date/Time Result Date/ Time Comments Platelet Count 119 T/MM3 L 130-400 08/05/2016 12:04pm 08/05/2016 12: 18pm Prothromb Time International Ratio 1.11 H 0.76-1.04 08/05/2016 12:04pm 08/05/2016 12:23pm THERAPUTIC RANGE=2.00-3.00 FOR ANTI-THROMBOSIS THERAPUTIC RANGE=2.50-3.50 FOR IMPLANTED VALVE Name: CHRIS GAONA Unit #: [id number] : 1935 Sex: M Admit Date: Loc / Svc: SRG Discharge Date: DIAGNOSTIC IMAGING REPORT [id number]:ITS.REASON Procedure:US GUIDE PARACENTESIS, SUBSEQ PARACENTESIS: The procedure including the benefits, risks, and alternatives were explained in detail to the patient. All of his questions were answered. He stated that they understood and wished to proceed. Informed consent was obtained. A preprocedural timeout was performed to confirm the correct patient and procedure. Using sterile technique, local xylocaine anesthesia, and sonographic guidance throughout, a paracentesis is done from a right lateral approach. 9200 ml of straw colored fluid was taken off without complication. Following this, the patient was taken back to his recovery room to finish his albumin infusion. Impression: Successful paracentesis performed with 9.2 L of fluid removed. Jitendra Chappell RPA/ROBINSON performed this under my personal supervision. . Procedures Procedure Status Date Provider(s) Abd paracentesis w/imaging Completed 06/07/16 JITENDRA WHYTE MD Echo guide for biopsy Completed 06/07/16 Automated platelet count Completed 06/07/16 Prothrombin time Completed 06/07/16 Routine venipuncture Completed 07/13/16 Abd paracentesis w/imaging Completed 07/13/16 JITENDRA WHYTE MD Automated platelet count Completed 07/13/16 Prothrombin time Completed 07/13/16 [id number]"INFUSION, ALBUMIN (HUMAN), 25%, 50 ML" Completed 07/13/16 Encounters Encounter Location Arrival/Admit Date Discharge/Depart Date Attending Provider [facility] 08/05/16 11:13am 08/05/16 7:30pm JITENDRA WHYTE MD [facility] 07/13/16 8:44am 07/13/16 3:25pm JITENDRA WHYTE MD [facility] 06/07/16 8:48am 06/07/16 1:43pm JITENDRA WHYTE MD
--- OUTSIDE RECORDS SUMMARY | 2016-11-04 14:41 | XMS REPORT | Continuity of Care Document ---
Author Author [facility] Organization [facility] Address Unknown Phone Unavailable Support Name Relationship Address Phone JITENDRA WHYTE MD Caregiver [address] [facility] [place] [address] Unavailable MELISSA FARRIS "LASHA" Caregiver [address] [place] [address] Unavailable RADHA GAONA Next Of Kin [address] [place], [place] [address] Insurance Providers Guarantor Chris Gaona Address [address] [place] [address] C Email DENIED 16 [facility] Policy Number [id number] Subscriber's Name Chris Gaona Relationship 18 Self Group Number [id number] Payer Medicare Policy Number [id number] Subscriber's Name Chris Gaona Relationship 18 Self Advance Directives Directive Response Recorded Date/Time Ordered Resuscitation Status Full Code 09/23/16 10:46am Resuscitation Documents on File Yes 09/23/16 10:52am DPOA for Healthcare Only Y DONNY 09/23/16 10:52am Living Will Yes 09/23/16 10:52am Advanced Directive or Resuscitation Comments DO NOT RESUSITATE 09/23/16 10: 52am Problems Active Problems Medical Problem Onset Date Status Acid reflux Unknown Resolved CAD (coronary artery disease) Unknown Chronic Chest pain Unknown Resolved Medications Current Home Medications Medication Dose Units Route Directions Days Qty Instructions Start Date Aspirin (Low Dose Aspirin Ec) 81 Mg Tablet. 1 Tab Oral Daily 30 Tablet 04/12/16 Calcium Carbonate/Vitamin D3 (Calcium + D 600 Mg Tablet) 1 Tab Tablet 1 Tab Oral Twice A Day 02/03/09 Clobetasol Propionate/Emoll (Clobetasol Emollient 0.05% Crm) 15 Gm Cream..g. 1 Applic Transderm Twice A Day 08/17/16 Cyanocobalamin (Vitamin B-12) 1,000 Mcg Tablet 1,000 Mcg Oral Daily 12/12/11 Dimethicone/Latrell/Vit A,C,E/Martin (Gold Burrell Ult Diabetic Cream) 96 Gm Cream..g. 1 Applic Transderm As Needed 08/17/16 Ferrous Sulfate 324 Mg Tablet 324 Mg Oral Daily 09/08/11 Fish Oil/Dha/Epa (Fish Oil 1,200 Mg Fish Oil) 1 Each Capsule 2 Tab Oral Daily 12/30/14 Furosemide 40 Mg Tablet 1 Tab Oral Daily 04/12/16 Insulin Glargine,Hum.rec.anlog (Lantus Solostar) 1 Unit Pen 8 Unit Sub-Q Daily 05/05/16 Insulin Lispro (Humalog) 100 U/Ml Cartridge [...] Date/Time Onset Date Status Reason for Hospitalization PARACENTESIS 09/23/2016 3:56pm Not Applicable Not Applicable Chewing Tobacco Status No 09/22/2016 10:22am Not Applicable Not Applicable Hx Substance Use No 09/22/2016 10:22am Not Applicable Not Applicable Hx Alcohol Use No 09/22/2016 10:22am Not Applicable Not Applicable Has the pt used tobacco in the last 12 months No 09/23/2016 10:54am Not Applicable Not Applicable Query Response Start Date Stop Date Smoking Status Former smoker Hospital Discharge Instructions Instructions: Care Instructions: I was in the hospital because (patient own words): "TO GET THE FLUID DRAINED OFF MY STOMACH" Discharge Diet: TOLERATED Discharge Activity: -RESTART MEDS STOPPED FOR THIS PROCEDURE AT NEXT DAY. -MAY RETURN TO WORK THE NEXT DAY. MAY DRIVE STARTING NEXT DAY. -MAY SHOWER/BATHE STARTING THE NEXT DAY. Follow Up Appointments: N/A Pending Lab / Results: No Pending Lab Expected Signs/Symptoms: PAIN AT THE [place] SITE. Notify Physician If: SIGNS OR SYMPTOMS OF INFECTION INCLUDING REDNESS AT PUCTURE SITE, FOUL SMELLING DRAINAGE, FEVER, CHEST PAIN, OR SOA. During Business Hours:: Please call the physician's office at [phone] AND ASK FOR RADIOLOGIST OR CALL PRIMARY CARE PHYSICIAN After Business Hours:: Please call [phone] and have the coin wrapping machine operator page the physician. Pain Management/Treatment: TYLENOL NEEDED Pain Scale Utilized to Educate Patient: 0-10 Pain Scale Wound/Incision Care: LEAVE BANDAGE ON FOR 24 HOURS Condition at time of discharge: Good Plan of Care Discharge Date 09/23/16 4:21pm Instructions/Education Provided Abdominal Paracentesis (DC) Prescriptions See Medication Section Functional Status Query Response Date Recorded Ability to complete ADL's impeded by No change September 23, 2016 10:52am Cognitive/Perceptual Impairments Impaired vision September 23, 2016 11:00am Visual Assistive Devices Glasses September 23, 2016 11:00am Preferred Method of Learning Reading Demonstration September 23, 2016 11:00am Allergies, Adverse Reactions, Alerts Allergen Type Severity Reaction Status Last Updated Penicillin Adverse Reaction Unknown Active 09/23/16 Morphine Allergy Unknown HALLUCINATIONS Active 09/16/16 Erythromycin base Allergy Unknown Active 09/23/16 Atorvastatin Allergy Unknown Active 09/23/16 Immunizations Query Response on File Recorded Date/Time Hx Influenza Vaccination Y MARCH 2016 09/23/16 10:54am Hx Pneumococcal Vaccination Y MARCH 2016 09/23/16 10:54am Hx Influenza Vaccination Y MARCH 2016 09/23/16 10:54am Influenza Vaccine Hx MAR 2016 09/16/16 12:30pm Vital Signs Acute Vital Signs Vital Response Date/Time Temperature (Fahrenheit) 98.1 deg F (96.8 - 99.1) 09/23/2016 1:37pm Temperature (Calculated Celsius) 36.20815 degrees C (36.0 - 37.3) 09/23/2016 1:37pm Temperature Source Temporal 09/23/2016 1:37pm Pulse Rate (adult) 61 bpm (60 - 100) 09/23/2016 2:37pm Respiratory Rate 18 breaths/min (10 - 20) 09/23/2016 1:37pm O2 Sat by Pulse Oximetry 100 % (90 - 100) 09/23/2016 2:37pm Oxygen Delivery Method Room Air 09/23/2016 2:37pm Oxygen Delivery Method Room Air 09/23/2016 10:57am Blood Pressure 110/61 mm Hg 09/23/2016 2:37pm Blood Pressure Source Automatic Cuff 09/23/2016 2:37pm Height (Feet) 5 feet 09/23/2016 10:50am Height (Inches) 10.00 inches 09/23/2016 10:50am Weight (Kilograms) 73.500 kg 09/23/2016 1:38pm Body Mass Index (BMI) 25.5 09/23/2016 10:50am Results Laboratory Results Test Name Result Units Flags Reference Collection Date/Time Result Date/ Time Comments Platelet Count 171 T/MM3 130-400 09/08/2016 1:08pm 09/08/2016 1:33pm Prothromb Time International Ratio 1.06 H 0.76-1.04 09/08/2016 1:08pm 09/08/2016 1:38pm THERAPUTIC RANGE=2.00-3.00 FOR ANTI-THROMBOSIS THERAPUTIC RANGE=2.50-3.50 FOR IMPLANTED VALVE Name: CHRIS GAONA Unit #: [id number] : 1935 Sex: M Admit Date: Loc / Svc: SRG Discharge Date: DIAGNOSTIC IMAGING REPORT Report #: [id number] [facility] JOE Rasmussen Indication: ITS.REASON: K74.60 PROCEDURE: US GUIDE PARACENTESIS, INITIAL: Encounter: Initial Comparison: September 16, 2016 PARACENTESIS: The procedure including the benefits, risks, and alternatives were explained in detail to the patient. All of his questions were answered. He stated that they understood and wished to proceed. Informed consent was obtained. A preprocedural timeout was performed to confirm the correct patient and procedure. Using sterile technique, local xylocaine anesthesia, and sonographic guidance throughout, a paracentesis is done from a left lateral approach. 8.2 liters of straw colored fluid was taken off without complication. Following this, the patient was taken back to his recovery room to finish his albumin infusion. Impression: Successful paracentesis performed with 8.2 L of fluid removed. . Procedures Procedure Status Date Provider(s) Routine venipuncture Completed 07/13/16 Abd paracentesis w/imaging Completed 07/13/16 JITENDRA WHYTE MD Automated platelet count Completed 07/13/16 Prothrombin time Completed 07/13/16"INFUSION, ALBUMIN (HUMAN), 25%, 50 ML" Completed 07/13/16 Abd paracentesis w/imaging Completed 08/05/16 JITENDRA WHYTE MD Automated platelet count Completed 08/05/16 Prothrombin time Completed 08/05/16 [id number]"EQUAL TO 48 SQ. IN., WITHOUT ADHESIVE BORDER, EACH DR Completed "INFUSION, ALBUMIN (HUMAN), 25%, 50 ML" Completed 08/05/16136075"INFUSION, ALBUMIN (HUMAN), 25%, 50 ML" Completed 08/05/16 Abd paracentesis w/imaging Completed 08/17/16 JITENDRA WHYTE MD Automated platelet count Completed 08/17/16 Prothrombin time Completed 08/17/16319426"INFUSION, ALBUMIN (HUMAN), 25%, 50 ML" Completed 08/17/16 [id number]"INFUSION, ALBUMIN (HUMAN), 25%, 50 ML" Completed 08/17/16 [id number]"INFUSION, ALBUMIN (HUMAN), 25%, 50 ML" Completed 08/17/16912781"INFUSION, ALBUMIN (HUMAN), 25%, 50 ML" Completed 08/17/16 Routine venipuncture Completed 09/01/16 Abd paracentesis w/imaging Completed 09/01/16 BJ FAIRBANKS MD Automated platelet count Completed 09/01/16 Prothrombin time Completed 09/01/16547665"INFUSION, NORMAL SALINE SOLUTION , 250 CC" Completed 09/01/16413845"INFUSION, ALBUMIN (HUMAN), 25%, 50 ML" Completed 09/01/16 939601"INFUSION, ALBUMIN (HUMAN), 25%, 50 ML" Completed 09/01/16 305734"INFUSION, ALBUMIN (HUMAN), 25%, 50 ML" Completed 09/01/16087347"INFUSION, ALBUMIN (HUMAN), 25%, 50 ML" Completed 09/01/16 Routine venipuncture Completed 09/08/16 Abd paracentesis w/imaging Completed 09/08/16 JITENDRA WHYTE MD Automated platelet count Completed 09/08/16 Prothrombin time Completed 09/08/16 108708"INFUSION, NORMAL SALINE SOLUTION , 250 CC" Completed 09/08/16 [id number]"INFUSION, ALBUMIN (HUMAN), 25%, 50 ML" Completed 09/08/16 Encounters Encounter Location Arrival/Admit Date Discharge/Depart Date Attending Provider [facility] 09/23/16 10:35am 09/23/16 4:21pm JITENDRA WHYTE MD [facility] 09/16/16 10:58am 09/16/16 4:30pm JITENDRA WHYTE MD [facility] 09/08/16 12:40pm 09/08/16 6:15pm JITENDRA WHYTE MD [facility] 09/01/16 12:12pm 09/01/16 6:15pm BJ FAIRBANKS MD [facility] 08/17/16 11:57am 08/17/16 7:10pm JITENDRA WHYTE MD [facility] 08/05/16 11:13am 08/05/16 7:30pm JITENDRA WHYTE MD [facility] 07/13/16 8:44am 07/13/16 3:25pm JITENDRA WHYTE MD
--- OUTSIDE RECORDS SUMMARY | 2016-11-04 14:41 | XMS REPORT | CCD ---
Author Author GIBRAN GARCIA Organization Unknown Address [address] [place], [place] [id number] Phone 0 Care Team Providers Care Tool Designer Apprentice Name Role Phone LASHA FARRIS Attending Physician [phone] Vital Signs Unknown or Not Available. Allergies Allergy Code Allergy Type Reaction Status No Known Allergies 0 No known allergies Active Procedures Unknown or Not Available. History of Immunizations Immunization Code Date influenza, whole 16 03/19/2015 pneumococcal polysaccharide PPV23 33 09/1998 Problems Unknown or Not Available. Results BASIC METABOLIC - Collect Date/Time: 08/17/2015 11:40 Test Name Code Test Result Test Units Test Ref Range GLUCOSE 225 mg/dL L=70 H=110 BUN 10 mg/dL L=7 H=18 CREATININE 1.00 mg/ dL L=0.60 H=1.30 AGE 80 YEARS GFR 76.2 SODIUM 144 mmol/L L=136 H=145 POTASSIUM 3.5 mmol/ L L=3.5 H=5.1 CHLORIDE 110 mmol/L L=98 H=107 CO2 21 mmol/L L=21 H=32 CALCIUM 8.9 mg/dL L=8.5 H=10.1 CBC W/ DIFF - Collect Date/Time: 08/17/2015 11:40 Test Name Code Test Result Test Units Test Ref Range WBC 4.1 x10^3 L=4.8 H=10.8 RBC 3.54 x10^6 L=4.70 H=6.10 HEMOGLOBIN 10.0 g/ dL L=14.0 H=18.0 HEMATOCRIT 30.8 % L=42.0 H=52.0 MCV 87 fL L=80 H=100 MCH 28.3 pg L=27.0 H=33.0 MCHC 32.5 g/dL L=33.0 H=37.0 RDW 17.5 % L=11.5 H=14.5 PLATELETS 162 x10^3 L=150 H=450 MPV 6.6 fL L=7.8 H=11.0 NEUTROPHILS 59.7 % L=40.0 H=80.0 LYMPHOCYTES 28.6 % L=20.0 H=45.0 MONOCYTES 10.1 % L=0.0 H=10.0 EOSINOPHILS 1.1 % L=0.0 H=5.0 BASOPHILS 0.5 % L=0.0 H=2.0 REFLEX MAN DIFF NO N /A Active Medications Unknown or Not Available. Medications Administered During Visit Unknown or Not Available. Encounters Encounter Diagnosis Diagnosis Code Start Date Anemia, unspecified D649 08/17/2015 Social History Smoking Status Code Start Date End Date Never smoker [id number] Patient Decision Aids Unknown or Not Available. Discharge Instructions You were admitted to [facility] on 08/17/2015 11:38 with a principal diagnosis of Anemia, unspecified You had the following tests done: BASIC METABOLIC CBC W/ DIFF You were discharged from [facility] on 08/17/2015 11:38 Should you have any questions prior to discharge, please contact a member of your healthcare team. If you have left the hospital and have any questions, please contact your primary care physician. Chief Complaint and Reason For Visit Unknown or Not Available. Function Status Unknown or Not Available. Plan of Care Unknown or Not Available. Referral/Transition of Care Unknown or Not Available.
--- OUTSIDE RECORDS SUMMARY | 2016-11-04 14:41 | XMS REPORT | Referral Summary ---
Author Author [facility] Organization [facility] Address Unknown Phone Unavailable Care Team Providers Care Continuous Process Rotary Drum Tanner Name Role Phone Sowmya Pope Primary Care Physician [phone] Encounter VC Date(s): 08/10/15 - 08/15/15 [facility] [address] [place] [address] Discharge Disposition: 01-Home or Self Care Attending Physician: Lizzy Whittaker MD Admitting Physician: Lizzy Whittaker MD Vital Signs Most recent to 1 oldest [Reference Range]: Temperature Oral 36.4 degC [35.8-37.3 degC] (08/15/15 12:08 PM) Temperature Temporal 36.7 degC Artery [36.3-37.8 (08/14/15 5:15 PM) degC] Peripheral Pulse 57 bpm Rate [60-100 bpm] *LOW* (08/15/15 12:08 PM) Heart Rate Monitored 61 bpm [60-100 bpm] (08/14/15 5:40 PM) Respiratory Rate 18 br/min [14-20 br/min] (08/15/15 12:08 PM) Blood Pressure 162/72 mmHg [90-140/60-90 mmHg] *HI* (08/15/15 12:08 PM) Mean Arterial 87 mmHg Pressure, Cuff (08/14/15 5:40 PM) SpO2 96 % (08/15/15 12:08 PM) Problem List Condition Effective Dates Status Health Status Informant Acute Resolved pain(Confirmed) At risk of pressure Resolved sore(Confirmed) Bowel Resolved dysfunction(Confirme d)1 Impaired skin Resolved integrity(Confirmed) 2 1Problem added automatically by system based on initiation of Bowel Dysfunction Plan of Care 2Problem added automatically by system based on initiation of Impaired Skin Integrity Plan of Care Allergies, Adverse Reactions, Alerts No Known Allergies Medications acetaminophen-codeine 300 mg-30 mg oral tablet 1 tabs, Oral, BID, Pain Moderate (4-6), 0 Refill(s) Start Date: 08/10/15 Status: Ordered Lauren Low Dose 81 mg, Oral, Daily, 0 Refill(s) Start Date: 08/10/15 Status: Ordered bicalutamide 50 mg oral tablet 50 mg 1 tabs, Oral, Bedtime (once a day), 0 Refill(s) Start Date: 08/10/15 Status: Ordered Calcium 600+D Oral, BID, 0 Refill(s) Start Date: 08/10/15 Status: Ordered Dulcolax Stool Softener 100 mg, Oral, Bedtime (once a day), 0 Refill(s) Start Date: 08/10/15 Status: Ordered ferrous sulfate (as elemental iron) 45 mg oral tablet, extended release 45 mg 1 tabs, Oral, Bedtime (once a day), # 30 tabs, 0 Refill(s) Start Date: 08/10/15 Status: Ordered Lantus Solostar Pen 100 units/mL subcutaneous solution 15 units, SubCutaneous, qAM, 0 Refill(s) Start Date: 08/10/15 Status: Ordered levothyroxine 75 mcg (0.075 mg) oral tablet 75 mcg 1 tabs, Oral, Daily, 0 Refill(s) Start Date: 08/10/15 Status: Ordered magnesium oxide 400 mg, Oral, Daily, 0 Refill(s) Start Date: 08/10/15 Status: Ordered metFORMIN 500 mg oral tablet 1,000 mg 2 tabs, Oral, BID, 0 Refill(s) Start Date: 08/10/15 Status: Ordered NovoLOG FlexPen 100 units/mL subcutaneous solution 5 units, SubCutaneous, BIDAC, before breakfast and dinner, 0 Refill(s) Start Date: 08/10/15 Status: Ordered omega-3 polyunsaturated fatty acids oral capsule 1 caps, Oral, BID, # 100 caps, 0 Refill(s) Start Date: 08/10/15 Status: Ordered omeprazole 40 mg oral delayed release capsule 40 mg 1 caps, Oral, Daily, 0 Refill(s) Start Date: 08/10/15 Status: Ordered tamsulosin 0.4 mg oral capsule 0.4 mg 1 caps, Oral, Daily, 0 Refill(s) Start Date: 08/10/15 Status: Ordered Vitamin B12 500 mcg, Oral, Daily, 0 Refill(s) Start Date: 08/10/15 Status: Ordered Results Hematology Most recent to 1 oldest [Reference Range]: WBC [4.8-10.8 3.3 10*3/uL 10*3/uL] *LOW* (08/15/15 4:56 AM) RBC [4.60-6.20] 3.37 *LOW* (08/15/15 4:56 AM) Hgb [14.0-18.0 9.5 gm/dL gm/dL] *LOW* (08/15/15 4:56 AM) Hct [42.0-52.0 %] 29.9 % *LOW* (08/15/15 4:56 AM) MCV [82.0-99.0 fL] 88.7 fL (08/15/15 4:56 AM) MCH [27.0-32.0 pg] 28.2 pg (08/15/15 4:56 AM) MCHC [32.0-36.0 31.8 gm/dL gm/dL] *LOW* (08/15/15 4:56 AM) RDW [11.5-14.5 %] 17.0 % *HI* (08/15/15 4:56 AM) Platelet [150-400 120 10*3/uL 10*3/uL] *LOW* (08/15/15 4:56 AM) MPV [9.4-12.3 fL] 9.1 fL *LOW* (08/15/15 4:56 AM) Immature 0.4 % Granulocytes (08/11/15 12:09 AM) [0.0-1.0 %] Neutrophils [51-75 72 % %] (08/11/15 12:09 AM) Lymphocytes [20-46 17 % %] *LOW* (08/11/15 12:09 AM) Monocytes [4-11 %] 10 % (08/11/15 12:09 AM) Eosinophils [0-4 %] 0 % (08/11/15 12:09 AM) Basophils [0-2 %] 0 % (08/11/15 12:09 AM) Neutro Absolute 5.22 10*3 [1.90-7.00 10*3] (2/23/16 12:09 AM) Lymph Absolute 1.23 10*3 [0.80-3.30 10*3] (08/11/15 12:09 AM) [place] Absolute 0.72 10*3 [0.30-1.00 10*3] (08/11/15 12:09 AM) Eos Absolute 0.02 10*3 [0.00-0.50 10*3] (08/11/15 12:09 AM) Baso Absolute 0.01 10*3 [0.00-0.20 10*3] (08/11/15 12:09 AM) Leti Cell Occasional *ABN* (08/11/15 12:09 AM) Nucleated RBC 0.0 /100 WBC Automated [0 /100 (08/11/15 12:09 AM) WBC] Differential Scanned Slide (08/11/15 12:09 AM) Chemistry Most recent to 1 oldest [Reference Range]: Sodium Lvl [136-144 138 mEq/L mEq/L] (08/15/15 4:56 AM) Potassium Lvl 3.3 mEq/L [3.6-5.1 mEq/L] *LOW* (08/15/15 4:56 AM) Chloride [99-109 110 mEq/L mEq/L] *HI* (08/15/15 4:56 AM) CO2 [22-32 mEq/L] 22 mEq/L (08/15/15 4:56 AM) AGAP [3-20] 6 (08/15/15 4:56 AM) BUN [4-20 mg/dL] 10 mg/dL (08/15/15 4:56 AM) Glucose Lvl [70-100 166 mg/dL mg/dL] *HI* (08/15/15 4:56 AM) Creatinine Lvl 0.76 mg/dL [0.64-1.27 mg/dL] (08/15/15 4:56 AM) eGFR [>60] >60 1 (08/15/15 4:56 AM) Calcium Lvl 7.9 mg/dL [8.6-10.0 mg/dL] *LOW* (08/15/15 4:56 AM) Albumin Lvl [3.5-4.8 2.2 gm/dL gm/dL] *LOW* (08/15/15 4:56 AM) Total Protein 5.5 gm/dL [6.1-7.9 gm/dL] *LOW* (08/11/15 12:09 AM) Globulin [1.9-4.3 2.7 gm/dL gm/dL] (08/11/15 12:09 AM) ALT [17-63 U/L] 25 U/L (08/11/15 12:09 AM) AST [15-41 U/L] 46 U/L *HI* (08/11/15 12:09 AM) Alk Phos [26-104 109 U/L U/L] *HI* (08/11/15 12:09 AM) Bili Total [0.2-1.2 1.4 mg/dL 2 mg/dL] *HI* (08/11/15 12:09 AM) Magnesium Lvl 2.1 mg/dL [1.8-2.5 mg/dL] (08/15/15 4:56 AM) Phosphorus [2.4-4.7 2.1 mg/dL 3 mg/dL] *LOW* (08/15/15 4:56 AM) Lactic Acid Lvl 1.6 mEq/L [0.5-2.2 mEq/L] (08/11/15 4:41 AM) Blood Glucose, 172 mg/dL Capillary [70-100 *HI* mg/dL] (08/15/15 12:10 PM) 1Result Comment: Multiply eGFR results by 1.21 for race. 2Result Comment: Naproxen, specifically the metabolite O-desmethylnaproxen, may cause spurious elevation in Total Bilirubin levels. 3Result Comment: High dosages of liposomal Amphotericin B (AmBisome) therapy or other drug preparations that use a liposomal envelope to facilitate drug delivery may cause falsely elevated results for phosphorus. Immunizations No data available for this section Procedures No data available for this section Social History No data available for this section Assessment and Plan No data available for this section
--- OUTSIDE RECORDS SUMMARY | 2016-11-04 14:41 | XMS REPORT | CCD ---
Author Author KIA LOTT Organization Unknown Address [address] [place], [place] [id number] Phone 0 Care Team Providers Care Cook Helper Fruit Name Role Phone Calvin KUMAR Attending Physician [phone] Elieser LOVE Rounding Physician 0 Vital Signs Unknown or Not Available. Allergies Allergy Code Allergy Type Reaction Status No Known Allergies 0 No known allergies Active Procedures Unknown or Not Available. History of Immunizations Unknown or Not Available. Problems Unknown or Not Available. Results PSA FREE Test Name Code Test Result Test Units Test Date/Time PSA. 5.0500 ng/mL 12/31/2013 08:21 PSA FREE 1.0100 ng/ mL 12/31/2013 08:21 %PSA FREE 20.0000 % 12/31/2013 08:21 COMP METABOLIC Test Name Code Test Result Test Units Test Date/Time GLUCOSE 257.0000 mg/ dL 12/31/2013 08:21 BUN 19.0000 mg/dL 12/31/2013 08:21 CREATININE 1.1000 mg /dL 12/31/2013 08:21 AGE 78.0000 YE[age] 12/31/2013 08:21 GFR 68.6000 12/31/2013 08:21 SODIUM 137.0000 mmol /L 12/31/2013 08:21 POTASSIUM 4.4000 mmol/L 12/31/2013 08:21 CHLORIDE 104.0000 mmol/L 12/31/2013 08:21 CO2 26.0000 mmol/L 12/31/2013 08:21 CALCIUM 9.0000 mg/ dL 12/31/2013 08:21 AST 46.0000 U/L 12/31/2013 08:21 ALT 41.0000 U/L 12/31/2013 08:21 ALKALINE PHOS 165.0000 U/L 12/31/2013 08:21 TOTAL PROTEIN 6.6000 g/dL 12/31/2013 08:21 ALBUMIN 3.0000 g/dL 12/31/2013 08:21 TOTAL BILI 0.4000 mg /dL 12/31/2013 08:21 LIPID PANEL Test Name Code Test Result Test Units Test Date/Time CHOLESTEROL 172.0000 mg/dL 12/31/2013 08:21 TRIGLYCERIDES 131.0000 mg/dL 12/31/2013 08:21 HDL 69.0000 mg/dL 12/31/2013 08:21 LDL, CALC 77.0000 mg /dL 12/31/2013 08:21 VLDL 26.0000 mg/dL 12/31/2013 08:21 CHOL/HDL RISK 2.5000 RATIO 12/31/2013 08:21 PT FASTING: ? N/A 12/31/2013 08:21 PSA Test Name Code Test Result Test Units Test Date/Time PSA 5.0500 ng/mL 12/31/2013 08:21 HGB A1C Test Name Code Test Result Test Units Test Date/Time HGB A1C 6.6000 % 12/31/2013 08:21 eAG 143.0000 mg/dL 12/31/2013 08:21 Medications Unknown or Not Available. Medications Administered Unknown or Not Available. Encounters Unknown or Not Available. Social History Smoking Status Code Start Date End Date Never smoker [id number] Patient Decision Aids Unknown or Not Available. Discharge Instructions You were admitted to [facility] on 12/31/2013. You were discharged from [facility] on 12/31/2013. Should you have any questions prior to [...]
--- OUTSIDE RECORDS SUMMARY | 2016-11-04 14:41 | XMS REPORT | CCD ---
Author Author GIBRAN GARCIA Organization Unknown Address [address], [place] [id number] Phone 0 Care Team Providers Care Psychiatric Aide Name Role Phone LASHA FARRIS Attending Physician [phone] Vital Signs Unknown or Not Available. Allergies Allergy Code Allergy Type Reaction Status No Known Allergies 0 No known allergies Active Procedures Unknown or Not Available. History of Immunizations Immunization Code Date influenza, whole 16 03/19/2015 pneumococcal polysaccharide PPV23 33 09/1998 Problems Unknown or Not Available. Results BASIC METABOLIC - Collect Date/Time: 10/26/2015 14:38 Test Name Code Test Result Test Units Test Ref Range GLUCOSE 108 mg/dL L=70 H=110 BUN 10 mg/dL L=7 H=18 CREATININE 1.16 mg/ dL L=0.60 H=1.30 AGE 80 YEARS GFR 60.4 SODIUM 144 mmol/L L=136 H=145 POTASSIUM 3.9 mmol/ L L=3.5 H=5.1 CHLORIDE 106 mmol/L L=98 H=107 CO2 28 mmol/L L=21 H=32 CALCIUM 9.1 mg/dL L=8.5 H=10.1 BASIC METABOLIC - Collect Date/Time: 10/19/2015 13:45 Test Name Code Test Result Test Units Test Ref Range GLUCOSE 147 mg/dL L=70 H=110 BUN 9 mg/dL L=7 H=18 CREATININE 1.00 mg/ dL L=0.60 H=1.30 AGE 80 YEARS GFR 71.7 SODIUM 140 mmol/L L=136 H=145 POTASSIUM 5.6 mmol/ L L=3.5 H=5.1 CHLORIDE 105 mmol/L L=98 H=107 CO2 30 mmol/L L=21 H=32 CALCIUM 9.1 mg/dL L=8.5 H=10.1 HGB A1C - Collect Date/Time: 10/19/2015 13:45 Test Name Code Test Result Test Units Test Ref Range HGB A1C 5.7 % L=4.5 H=6.2 eAG 117 mg/dL CBC W/ DIFF - Collect Date/Time: 10/19/2015 13:45 Test Name Code Test Result Test Units Test Ref Range WBC 3.5 x10^3 L=4.8 H=10.8 RBC 3.75 x10^6 L=4.70 H=6.10 HEMOGLOBIN 10.7 g/ dL L=14.0 H=18.0 HEMATOCRIT 32.5 % L=42.0 H=52.0 MCV 87 fL L=80 H=100 MCH 28.5 pg L=27.0 H=33.0 MCHC 33.0 g/dL L=33.0 H=37.0 RDW 15.3 % L=11.5 H=14.5 PLATELETS 126 x10^3 L=150 H=450 MPV 7.0 fL L=7.8 H=11.0 NEUTROPHILS 54.4 % L=40.0 H=80.0 LYMPHOCYTES 33.6 % L=20.0 H=45.0 MONOCYTES 9.8 % L=0.0 H=10.0 EOSINOPHILS 1.8 % L=0.0 H=5.0 BASOPHILS 0.4 % L=0.0 H=2.0 REFLEX MAN DIFF NO N /A Active Medications Unknown or Not Available. Medications Administered During Visit Unknown or Not Available. Encounters Encounter Diagnosis Diagnosis Code Start Date Anemia, unspecified D649 10/19/2015 Social History Smoking Status Code Start Date End Date Never smoker [id number] Patient Decision Aids Unknown or Not Available. Discharge Instructions You were admitted to [facility] on 10/19/2015 13:38 with a principal diagnosis of Anemia, unspecified You had the following tests done: BASIC METABOLIC BASIC METABOLIC CBC W / DIFF HGB A1C You were discharged from [facility] Should you have any questions prior to discharge, please contact a member of your healthcare team. If you have left the hospital and have any questions, please contact your primary care physician. Chief Complaint and Reason For Visit Chief Complaint Date of Onset LABS Function Status Unknown or Not Available. Plan of Care Unknown or Not Available. Referral/Transition of Care Unknown or Not Available.
--- OUTSIDE RECORDS SUMMARY | 2016-11-04 14:41 | XMS REPORT | CCD ---
Author Author GIBRAN GARCIA Organization Unknown Address [address], [place] [address] Phone 0 Care Team Providers Care Demand Generator Manager Name Role Phone LASHA FARRIS Attending Physician [phone] Vital Signs Unknown or Not Available. Allergies Allergy Code Allergy Type Reaction Status No Known Allergies 0 No known allergies Active Procedures Unknown or Not Available. History of Immunizations Immunization Code Date influenza, whole 16 03/19/2015 pneumococcal polysaccharide PPV23 33 09/1998 Problems Unknown or Not Available. Results Unknown or Not Available. Active Medications Unknown or Not Available. Medications Administered During Visit Unknown or Not Available. Encounters Encounter Diagnosis Diagnosis Code Start Date Other ascites R188 04/15/2016 Social History Smoking Status Code Start Date End Date Never smoker [id number] Patient Decision Aids Unknown or Not Available. Discharge Instructions You were admitted to [facility] on 04/15/2016 08:53 with a principal diagnosis of Other ascites You were discharged from [facility] on 04/15/2016 08:53 Should you have any questions prior to discharge, please contact a member of your healthcare team. If you have left the hospital and have any questions, please contact your primary care physician. Chief Complaint and Reason For Visit Chief Complaint Date of Onset CT SCAN ABDOMEN WWO CONT Function Status Unknown or Not Available. Plan of Care Unknown or Not Available. Referral/Transition of Care Unknown or Not Available.
--- OUTSIDE RECORDS SUMMARY | 2016-11-04 14:41 | XMS REPORT | CCD ---
Author Author GIBRAN GACRIA Organization Unknown Address [address], [place] [id number] Phone 0 Care Team Providers Care Dumb Waiter Operator Name Role Phone LASHA FARRIS Attending Physician [phone] Vital Signs Unknown or Not Available. Allergies Allergy Code Allergy Type Reaction Status No Known Allergies 0 No known allergies Active Procedures Unknown or Not Available. History of Immunizations Immunization Code Date influenza, whole 16 03/19/2015 pneumococcal polysaccharide PPV23 33 09/1998 Problems Unknown or Not Available. Results COMP METABOLIC - Collect Date/Time: 04/05/2016 10:04 Test Name Code Test Result Test Units Test Ref Range GLUCOSE 103 mg/dL L=70 H=110 BUN 10 mg/dL L=7 H=18 CREATININE 1.12 mg/ dL L=0.60 H=1.30 AGE 81 YEARS GFR 62.8 SODIUM 140 mmol/L L=136 H=145 POTASSIUM 4.3 mmol/ L L=3.5 H=5.1 CHLORIDE 105 mmol/L L=98 H=107 CO2 28 mmol/L L=21 H=32 CALCIUM 8.7 mg/dL L=8.5 H=10.1 AST 35 U/L L=15 H=37 ALT 20 U/L L=12 H=78 ALKALINE PHOS 250 U/ L L=46 H=116 TOTAL PROTEIN 5.9 g/ dL L=6.4 H=8.2 ALBUMIN 3.0 g/dL L=3.4 H=5.0 TOTAL BILI 1.40 mg/ dL L=0.00 H=1.00 HGB A1C - Collect Date/Time: 04/05/2016 10:04 Test Name Code Test Result Test Units Test Ref Range HGB A1C 5.5 % L=4.5 H=6.2 eAG 111 mg/dL PRO B-TYPE NATRIURETIC PEPTIDE - Collect Date/Time: 04/05/2016 10:04 Test Name Code Test Result Test Units Test Ref Range PBNP 984 pg/mL L=0 H=450 Active Medications Unknown or Not Available. Medications Administered During Visit Unknown or Not Available. Encounters Encounter Diagnosis Diagnosis Code Start Date Type 2 diabetes mellitus without complications E119 04/05/2016 Social History Smoking Status Code Start Date End Date Never smoker [id number] Patient Decision Aids Unknown or Not Available. Discharge Instructions You were admitted to [facility] on 04/05/2016 09:58 with a principal diagnosis of Type 2 diabetes mellitus without complications You had the following tests done: COMP METABOLIC HGB A1C PRO B-TYPE NATRIURETIC PEPTIDE You were discharged from [facility] on 04/05/2016 09:58 Should you have any questions prior to [...]
--- OUTSIDE RECORDS SUMMARY | 2016-11-04 14:41 | XMS REPORT | Continuity of Care Document ---
Author Author [facility] Organization [facility] Address Unknown Phone Unavailable Support Name Relationship Address Phone JITENDRA WHYTE MD Caregiver [address] [facility] [place] [address] Unavailable MELISSA FARRIS "LASHA" Caregiver [address] [place] [address] Unavailable RADHA GAONA Next Of Kin [address] [place], [place] [address] Insurance Providers Guarantor Chris Gaona Address [address] [place] [address] C Email DENIED16 [facility] Policy Number [id number] Subscriber's Name Chris Gaona Relationship 18 Self Group Number [id number] Payer Medicare Policy Number [id number] Subscriber's Name Chris Gaona Relationship 18 Self Advance Directives Directive Response Recorded Date/Time Ordered Resuscitation Status Full Code 07/13/16 8:55am Resuscitation Documents on File Yes 07/13/16 9:20am DPOA for Healthcare Only Y PATIENT'S CHILDREN 07/13/16 9:20am Living Will Y PATIENT STATES HE IS A DNR 07/13/16 9:20am Problems Active Problems Medical Problem Onset Date [...] 12/30/14 Cyanocobalamin (Vitamin B-12) 1,000 Mcg Tablet 500 Mcg Oral Daily 12/12/11 Ferrous Sulfate 324 [...] Daily 12/30 Metformin Hcl 1,000 Mg Tablet 1,000 Mg Oral Twice A Day instructed not [...] Onset Date Status Reason for Hospitalization PARACENTESIS 07/13/2016 12:25pm Not Applicable Not Applicable Hx Substance Use No 07/12/2016 2:40pm Not Applicable Not Applicable Hx Alcohol Use No 07/12/2016 2:40pm Not Applicable Not Applicable Has the pt used tobacco in the last 12 months No 07/13/2016 9:21am Not Applicable Not Applicable Query Response Start Date Stop Date Smoking Status Former smoker Hospital Discharge Instructions Instructions: Care Instructions: I was in the hospital because (patient own words): PATIENT STATES, "DRAIN MY STOMACH" Discharge Diet: REGULAR Discharge Activity: SEE DISMISSAL INSTRUCTIONS Follow Up Appointments: SEE DISMISSAL INSTRUCTIONS Pending Lab / Results: No Pending Lab Patient Instructions: MAY RESTART MEDS STOPPED FOR THIS PROCEDURE TOMORROW (07/14/16). MAY RETURN TO WORK AND USUAL ACTIVITES TOMORROW. MAY DRIVE STARTING TOMORROW. MAY SHOWER/BATHE STARTING TOMORROW. Expected Signs/Symptoms: SEE DISMISSAL INSTRUCTIONS Notify Physician If: SEE DISMISSAL INSTRUCTIONS During Business Hours:: Please call the physician's office at After Business Hours:: Please call [phone] and have the glass blowing lathe operator page the physician. Pain Management/Treatment: SEE DISMISSAL INSTRUCTIONS Wound/Incision Care: SEE DISMISSAL INSTRUCTIONS Condition at time of discharge: Good Plan of Care Discharge Date 07/13/16 3:25pm Instructions/Education Provided Abdominal Paracentesis (DC) Prescriptions See Medication Section Functional Status Query Response Date Recorded Mobility Status Ambulatory July 13, 2016 9:16am Assistive Devices None July 13, 2016 9:16am Activity Limitations Weakness Fatigue Dizziness July 13, 2016 9:16am Feeding Ability Independent July 13, 2016 9:16am Toileting Ability Independent July 13, 2016 9:16am Grooming Ability Independent July 13, 2016 9:16am Dressing Ability Independent July 13, 2016 9:16am Driving Ability Independent July 13, 2016 9:16am Housework Ability Independent July 13, 2016 9:16am Meal Preparation Ability Independent July 13, 2016 9:16am Stair Climbing Ability Independent July 13, 2016 9:16am Ability to complete ADL's impeded by No change July 13, 2016 9:20am Cognitive/Perceptual Impairments Impaired vision July 13, 2016 9:16am Visual Assistive Devices Glasses With patient July 13, 2016 9:16am Preferred Method of Learning Demonstration Listening Pictures Hands on July 13, 2016 9:16am Allergies, Adverse Reactions, Alerts Allergen Type Severity Reaction Status Last Updated Morphine Allergy Unknown HALLUCINATIONS Active 07/13/16 Immunizations Query Response on File Recorded Date/Time Hx Influenza Vaccination Y MARCH 2016 07/13/16 9:21am Hx Pneumococcal Vaccination Y MARCH 2016 07/13/16 9:21am Hx Influenza Vaccination Y MARCH 2016 07/13/16 9:21am Influenza Vaccine Hx FEB 2016 07/13/16 11:37am Vital Signs Acute Vital Signs Vital Response Date/Time Temperature (Fahrenheit) 97.3 deg F (96.8 - 99.1) 07/13/2016 12:15pm Temperature (Calculated Celsius) 36.50371 degrees C (36.0 - 37.3) 07/13/2016 12:15pm Temperature Source Oral 07/13/2016 12:15pm Pulse Rate (adult) 62 bpm (60 - 100) 07/13/2016 3:15pm Respiratory Rate 14 breaths/min (10 - 20) 07/13/2016 12:15pm O2 Sat by Pulse Oximetry 96 % (90 - 100) 07/13/2016 3:15pm Oxygen Delivery Method Room Air 07/13/2016 3:15pm Oxygen Delivery Method Room Air 07/13/2016 9:35am Blood Pressure 97/53 mm Hg 07/13/2016 3:15pm Blood Pressure Source Automatic Cuff 07/13/2016 3:15pm Height (Feet) 5 feet 07/13/2016 9:19am Height (Inches) 10.00 inches 07/13/2016 9:19am Weight (Kilograms) 82.500 kg 07/13/2016 9:19am Body Mass Index (BMI) 26.1 07/13/2016 9:19am Results Laboratory Results Test Name Result Units Flags Reference Collection Date/Time Result Date/ Time Comments Body Fluid Color LIGHT YELLOW 05/05/2016 1:00pm 05/05/2016 2:38pm Body Fluid Turbidity CLEAR 05/05/2016 1:00pm 05/05/2016 2:38pm Body Fluid Total Nucleated Cells 122 /MM3 05/05/2016 1:00pm 2015 2:38pm Body Fluid RBC 2000 /MM3 05/05/2016 1:00pm 05/05/2016 2:38pm Body Fluid Neutrophils 1 % 05/05/2016 1:00pm 05/05/2016 2:38pm Body Fluid Lymphocytes 94 % 05/05/2016 1:00pm 05/05/2016 2:38pm Body Fluid Monocytes 5 % 05/05/2016 1:00pm 05/05/2016 2:38pm Body Fluid Type PARACENTESIS FLUID 05/05/2016 1:00pm 05/05/2016 2: 38pm Miscellaneous Cytology SEND OUT 05/05/2016 1:00pm 05/05/2016 1: 57pm Body Fluid Albumin <1.5 g/dL 05/05/2016 1:00pm 05/06/2016 12:37am Body Fluid Type Paracentes 05/05/2016 1:00pm 05/05/2016 1:59pm Albumin, Fluid performed at [facility], [facility] [place] [address] Director Of Enrollment Kong Andre DO Body Fluid Total Protein <3.0 g/dL 05/05/2016 1:00pm 05/06/2016 12: 37am Protein, Fluid performed at [facility], [facility] [place] [address] Director Of Enrollment Kong Andre DO Platelet Count 138 T/MM3 130-400 07/13/2016 9:37am 07/13/2016 10:10am Prothromb Time International Ratio 1.12 H 0.76-1.04 07/13/2016 9:37am 07/13/2016 10:16am THERAPUTIC RANGE=2.00-3.00 FOR ANTI-THROMBOSIS THERAPUTIC RANGE=2.50-3.50 FOR IMPLANTED VALVE Microbiology Results Procedure Source Organism/Result Collection Date/Time Result Date/Time Result Status Body Fluid Culture Paracentesis Fluid NO GROWTH AFTER 5 DAYS 05/05/2016 1: 00pm 05/10/2016 9:05am Final Name: CHRIS GAONA Unit #: [id number] : 1935 Sex: M Admit Date: Loc / Svc: SRG Discharge Date: DIAGNOSTIC IMAGING REPORT Report #: [id number] [facility] JOE Rasmussen Indication:ITS.REASON: K74.60 ascites Procedure:US GUIDE PARACENTESIS, SUBSEQ Encounter: Subsequent PARACENTESIS: The procedure including the benefits, risks, [...] is done from a right lateral approach. 7400 ml of straw colored fluid was taken off without complication. Following this, the patient was taken to his recovery room to finish out his albumin infusion. Impression: Successful paracentesis performed with 7400 mL of fluid removed. Jitendra Chappell RPA/ROBINSON performed this under my personal supervision. . Procedures Procedure Status Date Provider(s) Routine venipuncture Completed 05/05/16 Abd paracentesis w/imaging Completed 05/05/16 JITENDRA WHYTE MD Assay of urine albumin Completed 05/05/16 Assay of protein other Completed 05/05/16 Automated platelet count Completed 05/05/16 Prothrombin time Completed 05/05/16 Specimen infect agnt concntj Completed 05/05/16 Culture othr specimn aerobic Completed 05/05/16 Mycobacteria culture Completed 05/05/16 Cytopath cell enhance tech Completed 05/05/16 Tissue exam by pathologist Completed 05/05/16 Body fluid cell count Completed 05/05/16 Abd paracentesis w/imaging Completed 06/07/16 JITENDRA WHYTE MD Echo guide for biopsy Completed 06/07/16 Automated platelet count Completed 06/07/16 Prothrombin time Completed 06/07/16 Encounters Encounter Location Arrival/Admit Date Discharge/Depart Date Attending Provider [facility] 07/13/16 8:44am 07/13/16 3:25pm JITENDRA WHYTE MD [facility] 06/07/16 8:48am 06/07/16 1:43pm JITENDRA WHYTE MD [facility] 05/05/16 10:38am 05/05/16 2:58pm JITENDRA WHYTE MD
--- OUTSIDE RECORDS SUMMARY | 2016-11-04 14:41 | XMS REPORT | CCD ---
Author Author GIBRAN GARCIA Organization Unknown Address [address] [place], [place] [id number] Phone 0 Care Team Providers Care Packaging Inspector Name Role Phone Zeeshan LOPEZ Attending Physician 0 Vital Signs Unknown or Not Available. Allergies Allergy Code Allergy Type Reaction Status No Known Allergies 0 No known allergies Active Procedures Unknown or Not Available. History of Immunizations Immunization Code Date influenza, whole 16 03/19/2015 pneumococcal polysaccharide PPV23 33 09/1998 Problems Unknown or Not Available. Results COMP METABOLIC - Collect Date/Time: 03/29/2016 14:28 Test Name Code Test Result Test Units Test Ref Range GLUCOSE 184 mg/dL L=70 H=110 BUN 12 mg/dL L=7 H=18 CREATININE 1.09 mg/ dL L=0.60 H=1.30 AGE 81 YEARS GFR 64.8 SODIUM 141 mmol/L L=136 H=145 POTASSIUM 4.1 mmol/ L L=3.5 H=5.1 CHLORIDE 106 mmol/L L=98 H=107 CO2 27 mmol/L L=21 H=32 CALCIUM 8.3 mg/dL L=8.5 H=10.1 AST 35 U/L L=15 H=37 ALT 20 U/L L=12 H=78 ALKALINE PHOS 235 U/ L L=46 H=116 TOTAL PROTEIN 5.9 g/ dL L=6.4 H=8.2 ALBUMIN 2.9 g/dL L=3.4 H=5.0 TOTAL BILI 1.20 mg/ dL L=0.00 H=1.00 PRO B-TYPE NATRIURETIC PEPTIDE - Collect Date/Time: 03/29/2016 14:28 Test Name Code Test Result Test Units Test Ref Range PBNP 710 pg/mL L=0 H=450 Active Medications Unknown or Not Available. Medications Administered During Visit Unknown or Not Available. Encounters Encounter Diagnosis Diagnosis Code Start Date Edema, unspecified R609 03/29/2016 Social History Smoking Status Code Start Date End Date Never smoker [id number] Patient Decision Aids Unknown or Not Available. Discharge Instructions You were admitted to [facility] on 03/29/2016 14:22 with a principal diagnosis of Edema, unspecified You had the following tests done: COMP METABOLIC PRO B-TYPE NATRIURETIC PEPTIDE You were discharged from [facility] on 03/29/2016 14:22 Should you have any questions prior to [...]
--- OUTSIDE RECORDS SUMMARY | 2016-11-04 14:41 | XMS REPORT | Continuity of Care Document ---
Author Author [facility] Organization [facility] Address Unknown Phone Unavailable Support Name Relationship Address Phone JITENDRA WHYTE MD Caregiver [address] [facility] [place] [address] Unavailable MELISSA FARRIS "LASHA" Caregiver [address] [place] [address] Unavailable RADHA GAONA Next Of Kin [address] [place], [place] [address] Insurance Providers Guarantor Chris Gaona Address [address] [place] [address] Email DENIED 10-07-16 [facility] Policy Number [id number] Subscriber's Name Chris Gaona Relationship 18 Self Group Number [id number] Payer Medicare Policy Number [id number] Subscriber's Name Chris Gaona Relationship 18 Self Advance Directives Directive Response Recorded Date/Time Ordered Resuscitation Status Full Code 10/07/16 8:34am Resuscitation Documents on File Yes 10/07/16 8:58am DPOA for Healthcare Only Yes 10/07/16 8:58am Living Will Yes 10/07/16 8:58am Problems Active Problems Medical Problem Onset Date [...] Onset Date Status Reason for Hospitalization PARACENTESIS 10/07/2016 2:44pm Not Applicable Not Applicable Hx Substance Use No 09/30/2016 8:00am Not Applicable Not Applicable Hx Alcohol Use No 09/30/2016 8:00am Not Applicable Not Applicable Has the pt used tobacco in the last 12 months No 10/07/2016 8:58am Not Applicable Not Applicable Query Response Start Date Stop Date Smoking Status Never smoker Hospital Discharge Instructions Instructions: Care Instructions: I was in the hospital because (patient own words): FLUID TAKEN OFF Discharge Diet: REGULAR Discharge Activity: MAY SHOWER TOMORROW MAY DRIVE TOMORROW Follow Up Appointments: N/A Pending Lab / Results: No Pending Lab Expected Signs/Symptoms: TENDERNESS AT PUNCTURE SITE Notify Physician If: UNCONTROLLED PAIN, SIGNS AND SYMPTOJMS OF INFECTION INCUDING REDNESS AND WARMTH AT PUCTURE SITE, FOUL SMELLING DRAINAGE, FEVER >100.5 During Business Hours:: Please call the physician's office at After Business Hours:: Please call [phone] and have the long lines operator page the physician. Pain Management/Treatment: TYLENOL NEEDED Pain Scale Utilized to Educate Patient: 0-10 Pain Scale Wound/Incision Care: MAY REMOVE BANDAGE AFTER 24 HOURS Condition at time of discharge: Good Plan of Care Discharge Date 10/07/16 3:02pm Instructions/Education Provided Abdominal Paracentesis (DC) Prescriptions See Medication Section Functional Status Query Response Date Recorded Mobility Status Ambulatory October 07, 2016 8:57am Assistive Devices None October 07, 2016 8:57am Activity Limitations Fatigue October 07, 2016 8:57am Feeding Ability Independent October 07, 2016 8:57am Toileting Ability Independent October 07, 2016 8:57am Grooming Ability Independent October 07, 2016 8:57am Dressing Ability Independent October 07, 2016 8:57am Driving Ability Independent October 07, 2016 8:57am Housework Ability Independent October 07, 2016 8:57am Meal Preparation Ability Independent October 07, 2016 8:57am Stair Climbing Ability Independent October 07, 2016 8:57am Ability to complete ADL's impeded by No change October 07, 2016 8:58am Cognitive/Perceptual Impairments Impaired vision October 07, 2016 8:57am Visual Assistive Devices Glasses With patient October 07, 2016 8:57am Preferred Method of Learning Reading Listening October 07, 2016 8:57am Allergies, Adverse Reactions, Alerts Allergen Type Severity Reaction Status Last Updated Penicillin Adverse Reaction Unknown Active 10/07/16 Morphine Allergy Unknown HALLUCINATIONS Active 10/07/16 Erythromycin base Allergy Unknown Active 10/07/16 Atorvastatin Allergy Unknown Active 10/07/16 Immunizations Query Response on File Recorded Date/Time Hx Influenza Vaccination Y MARCH 2016 10/07/16 8:58am Hx Pneumococcal Vaccination Y MARCH 2016 10/07/16 8:58am Hx Influenza Vaccination Y MARCH 2016 10/07/16 8:58am Influenza Vaccine Hx MAR 2016 09/30/16 8:35am Vital Signs Acute Vital Signs Vital Response Date/Time Temperature (Fahrenheit) 97.1 deg F (96.8 - 99.1) 10/07/2016 11:47am Temperature (Calculated Celsius) 36.07951 degrees C (36.0 - 37.3) 10/07/2016 11:47am Temperature Source Oral 09/30/2016 11:30am Pulse Rate (adult) 63 bpm (60 - 100) 10/07/2016 1:18pm Respiratory Rate 16 breaths/min (10 - 20) 10/07/2016 12:02pm O2 Sat by Pulse Oximetry 99 % (90 - 100) 10/07/2016 1:18pm Oxygen Delivery Method Room Air 10/07/2016 11:27am Oxygen Delivery Method Room Air 10/07/2016 1:18pm Blood Pressure 92/47 mm Hg 10/07/2016 1:18pm Blood Pressure Source Automatic Cuff 10/07/2016 1:18pm Height (Feet) 5 feet 10/07/2016 8:38am Height (Inches) 10.00 inches 10/07/2016 8:38am Weight (Kilograms) 73.400 kg 10/07/2016 11:40am Body Mass Index (BMI) 25.6 10/07/2016 8:38am Results Laboratory Results Test Name Result Units Flags Reference Collection Date/Time Result Date/ Time Comments Platelet Count 128 T/MM3 L 130-400 09/30/2016 8:26am 09/30/2016 8:32am Prothromb Time International Ratio 1.12 H 0.76-1.04 09/30/2016 8:26am 09/30/2016 8:37am THERAPUTIC RANGE=2.00-3.00 FOR ANTI-THROMBOSIS THERAPUTIC RANGE=2.50-3.50 FOR IMPLANTED VALVE Name: CHRIS GAONA Unit #: [id number] : 1935 Sex: M Admit Date: Loc / Svc: SRG Discharge Date: DIAGNOSTIC IMAGING REPORT Report #: [id number] [facility] JOE Rasmussen Indication:ITS.REASON: R18.8 ASCITES; K74.60 CIRRHOSIS Procedure:US GUIDE PARACENTESIS, INITIAL PARACENTESIS: The procedure including the benefits, risks, and were explained in detail to the patient. All of his questions were answered. He stated that they understood and wished to proceed. Informed consent was obtained. A preprocedural timeout was performed to confirm the correct patient and procedure. Using sterile technique, local xylocaine anesthesia, and sonographic guidance throughout, a paracentesis is done from a right lateral approach. 7.5 liters of straw colored fluid was taken off without complication. Following this, the patient was taken back to his recovery room to finish his albumin infusion. Impression: Successful paracentesis performed with 7.5 L of fluid removed. Jitendra Chappell RPA/ROBINSON performed this under my personal supervision. . Procedures Procedure Status Date Provider(s) Routine venipuncture Completed 07/13/16 Abd paracentesis w/imaging Completed 07/13/16 JITENDRA WHYTE MD Automated platelet count Completed 07/13/16 Prothrombin time Completed 07/13/16 [id number]"INFUSION, ALBUMIN (HUMAN), 25%, 50 ML" Completed 07/13/16 Abd paracentesis w/imaging Completed 08/05/16 JITENDRA WHYTE MD Automated platelet count Completed 08/05/16 Prothrombin time Completed 08/05/16 [id number]"EQUAL TO 48 SQ. IN., WITHOUT ADHESIVE BORDER, EACH DR Completed [id number]"INFUSION, ALBUMIN (HUMAN), 25%, 50 ML" Completed 08/05/16 314254"INFUSION, ALBUMIN (HUMAN), 25%, 50 ML" Completed 08/05/16 Abd paracentesis w/imaging Completed 08/17/16 JITENDRA WHYTE MD Automated platelet count Completed 08/17/16 Prothrombin time Completed 08/17/16 [id number]"INFUSION, ALBUMIN (HUMAN), 25%, 50 ML" Completed 08/17/16 150517"INFUSION, ALBUMIN (HUMAN), 25%, 50 ML" Completed 08/17/16 [id number]"INFUSION, ALBUMIN (HUMAN), 25%, 50 ML" Completed 08/17/16 [id number]"INFUSION, ALBUMIN (HUMAN), 25%, 50 ML" Completed 08/17/16 Routine venipuncture Completed 09/01/16 Abd paracentesis w/imaging Completed 09/01/16 BJ FAIRBANKS MD Automated platelet count Completed 09/01/16 Prothrombin time Completed 09/01/16628912"INFUSION, NORMAL SALINE SOLUTION , 250 CC" Completed 09/01/16 610373"INFUSION, ALBUMIN (HUMAN), 25%, 50 ML" Completed 09/01/16 140077"INFUSION, ALBUMIN (HUMAN), 25%, 50 ML" Completed 09/01/16 954231"INFUSION, ALBUMIN (HUMAN), 25%, 50 ML" Completed 09/01/16 [id number]"INFUSION, ALBUMIN (HUMAN), 25%, 50 ML" Completed 09/01/16 Routine venipuncture Completed 09/08/16 Abd paracentesis w/imaging Completed 09/08/16 JITENDRA WHYTE MD Automated platelet count Completed 09/08/16 Prothrombin time Completed 09/08/16 790730"INFUSION, NORMAL SALINE SOLUTION , 250 CC" Completed 09/08/16 115837"INFUSION, ALBUMIN (HUMAN), 25%, 50 ML" Completed 09/08/16 Abd paracentesis w/imaging Completed 09/16/16 JITENDRA WHYTE MD [id number]"INFUSION, NORMAL SALINE SOLUTION , 250 CC" Completed 09/16/16 [id number]"INFUSION, ALBUMIN (HUMAN), 25%, 50 ML" Completed 09/16/16 Abd paracentesis w/imaging Completed 09/23/16 JITENDRA WHYTE MD [id number]"INFUSION, NORMAL SALINE SOLUTION , 250 CC" Completed 09/23/16"INFUSION, ALBUMIN (HUMAN), 25%, 50 ML" Completed 09/23/16"INFUSION, ALBUMIN (HUMAN), 25%, 50 ML" Completed 09/23/16"INFUSION, ALBUMIN (HUMAN), 25%, 50 ML" Completed 09/23/16 Encounters Encounter Location Arrival/Admit Date Discharge/Depart Date Attending Provider [facility] 10/07/16 8:23am 10/07/16 3:02pm JITENDRA WHYTE MD [facility] 09/30/16 7:43am 09/30/16 2:45pm JITENDRA WHYTE MD [facility] 09/23/16 10:35am 09/23/16 4:21pm JITENDRA WHYTE MD [facility] 09/16/16 10:58am 09/16/16 4:30pm JITENDRA WHYTE MD [facility] 09/08/16 12:40pm 09/08/16 6:15pm JITENDRA WHYTE MD [facility] 09/01/16 12:12pm 09/01/16 6:15pm BJ FAIRBANKS MD [facility] 08/17/16 11:57am 08/17/16 7:10pm JITENDRA WHYTE MD [facility] 08/05/16 11:13am 08/05/16 7:30pm JITENDRA WHYTE MD [facility] 07/13/16 8:44am 07/13/16 3:25pm JITENDRA WHYTE MD
--- OUTSIDE RECORDS SUMMARY | 2016-11-04 14:41 | XMS REPORT | CCD ---
Author KIA Mcdonald Organization Unknown Address [address] [place], [place] [address] Phone 0 Care Team Providers Care Rubber Mill Tender Name Role Phone ARCHANA MCKENNA Attending Physician 0 Vital Signs Unknown or Not Available. Allergies Allergy Code Allergy Type Reaction Status No Known Allergies 0 No known allergies Active Procedures Unknown or Not Available. History of Immunizations Unknown or Not Available. Problems Unknown or Not Available. Results BASIC METABOLIC - Collect Date/Time: 01/08/2015 13:51 Test Name Code Test Result Test Units Test Ref Range GLUCOSE 179 mg/dL L=70 H=110 BUN 15 mg/dL L=7 H=18 CREATININE 1.20 mg/ dL L=0.60 H=1.30 AGE 79 YEARS GFR 61.9 SODIUM 142 mmol/L L=136 H=145 POTASSIUM 4.3 mmol/ L L=3.5 H=5.1 CHLORIDE 106 mmol/L L=98 H=107 CO2 28 mmol/L L=21 H=32 CALCIUM 9.4 mg/dL L=8.5 H=10.1 CBC (HEMOGRAM ONLY) - Collect Date/Time: 01/08/2015 13:51 Test Name Code Test Result Test Units Test Ref Range WBC 5.0 x10^3 L=4.8 H=10.8 RBC 4.15 x10^6 L=4.70 H=6.10 HEMOGLOBIN 12.7 g/ dL L=14.0 H=18.0 HEMATOCRIT 38.3 % L=42.0 H=52.0 MCV 92 fL L=80 H=100 MCH 30.7 pg L=27.0 H=33.0 MCHC 33.3 g/dL L=33.0 H=37.0 RDW 15.2 % L=11.5 H=14.5 PLATELETS 185 x10^3 L=150 H=450 MPV 7.0 fL L=7.8 H=11.0 Active Medications Unknown or Not Available. Medications Administered During Visit Unknown or Not Available. Encounters Encounter Diagnosis Diagnosis Code Start Date ANEMIA NOS 2859 01/08/2015 Social History Smoking Status Code Start Date End Date Never smoker [id number] Patient Decision Aids Unknown or Not Available. Discharge Instructions [facility] on 01/08/2015 with a principal diagnosis of ANEMIA NOS. You were [facility] on 01/08/2015. Should you have any questions prior to [...]
--- OUTSIDE RECORDS SUMMARY | 2016-11-04 14:41 | XMS REPORT | CCD ---
Author Author KIA LOTT Organization Unknown Address [address], [place] [address] Phone 0 Care Team Providers Care Credit Reporter Name Role Phone Calvin KUMAR Attending Physician [phone] ARCHANA MCKENNA Rounding Physician 0 Vital Signs Unknown or Not Available. Allergies Allergy Code Allergy Type Reaction Status No Known Allergies 0 No known allergies Active Procedures Unknown or Not Available. History of Immunizations Unknown or Not Available. Problems Unknown or Not Available. Results PSA - Collect Date/Time: 07/11/2014 13:50 Test Name Code Test Result Test Units Test Ref Range PSA 0.11 ng/mL L=0.00 H=4.00 Active Medications Unknown or Not Available. Medications Administered During Visit Unknown or Not Available. Encounters Unknown or Not Available. Social History Smoking Status Code Start Date End Date Never smoker [id number] Patient Decision Aids Unknown or Not Available. Discharge Instructions You were admitted to [facility] on 07/11/2014. You were discharged from [facility] on 07/11/2014. Should you have any questions prior to discharge, please contact a member of your healthcare team. If you have left the hospital and have any questions, please contact your primary care physician. Chief Complaint and Reason For Visit Chief Complaint Date of Onset NM BONE SCAN WB/LAB Function Status Unknown or Not Available. Plan of Care Unknown or Not Available. Referral/Transition of Care Unknown or Not Available.
--- OUTSIDE RECORDS SUMMARY | 2016-11-04 14:41 | XMS REPORT | CCD ---
Author Author KIA LOTT Organization Unknown Address [address] [place], [place] [address] Phone 0 Care Team Providers Care Satellite Technician Name Role Phone Elieser LOVE Attending Physician 0 Vital Signs Unknown. Allergies Allergy Code Allergy Type Reaction Status No Known Allergies 0 No known allergies Active Procedures Unknown. History of Immunizations Unknown. Problems Unknown. Results BASIC METABOLIC Test Name Code Test Result Test Units Test Date/Time GLUCOSE 150.0000 mg/ dL 09/30/2013 13:45 BUN 14.0000 mg/dL 09/30/2013 13:45 CREATININE 1.0000 mg /dL 09/30/2013 13:45 AGE 78.0000 YE[age] 09/30/2013 13:45 GFR 76.6000 09/30/2013 13:45 SODIUM 142.0000 mmol /L 09/30/2013 13:45 POTASSIUM 4.1000 mmol/L 09/30/2013 13:45 CHLORIDE 105.0000 mmol/L 09/30/2013 13:45 CO2 30.0000 mmol/L 09/30/2013 13:45 CALCIUM 9.1000 mg/ dL 09/30/2013 13:45 HGB A1C Test Name Code Test Result Test Units Test Date/Time HGB A1C 6.6000 % 09/30/2013 13:45 eAG 143.0000 mg/dL 09/30/2013 13:45 Medications Unknown. Medications Administered Unknown. Encounters Unknown. Social History Smoking Status Code Start Date End Date Never smoker [id number] Patient Decision Aids Unknown. Instructions You were admitted to [facility] on 09/30/2013. You were discharged from [facility] on 09/30/2013. Should you have any questions prior to discharge, please contact a member of your healthcare team. If you have left the hospital and have any questions, please contact your primary care physician. Chief Complaint and Reason For Visit Chief Complaint Date of Onset LAB Function Status Unknown. Plan of Care Unknown. Referral/Transition of Care Unknown.
--- OUTSIDE RECORDS SUMMARY | 2016-11-04 14:41 | XMS REPORT | CCD ---
Author Author ALANNA QUIROS Organization Unknown Address [address], [place] [address] Phone 0 Care Team Providers Care Preparation Room Manager Name Role Phone Calvin KUMAR Attending Physician [phone] Elieser LOVE Rounding Physician 0 Vital Signs Unknown. Allergies Allergy Code Allergy Type Reaction Status No Known Allergies 0 No known allergies Active Procedures Unknown. History of Immunizations Unknown. Problems Unknown. Results PSA Test Name Code Test Result Test Units Test Date/Time PSA 2.7400 ng/mL 07/01/2013 11:25 COMP METABOLIC Test Name Code Test Result Test Units Test Date/Time GLUCOSE 196.0000 mg/ dL 07/01/2013 11:25 BUN 21.0000 mg/dL 07/01/2013 11:25 CREATININE 1.0000 mg /dL 07/01/2013 11:[age]0000 YE[age] 07/01/2013 11:25 GFR 76.6000 07/01/2013 11:25 SODIUM 146.0000 mmol /L 07/01/2013 11:25 POTASSIUM 3.9000 mmol/L 07/01/2013 11:25 CHLORIDE 106.0000 mmol/L 07/01/2013 11:25 CO2 31.0000 mmol/L 07/01/2013 11:25 CALCIUM 8.6000 mg/ dL 07/01/2013 11:25 AST 40.0000 U/L 07/01/2013 11:25 ALT 45.0000 U/L 07/01/2013 11:25 ALKALINE PHOS 129.0000 U/L 07/01/2013 11:25 TOTAL PROTEIN 6.5000 g/dL 07/01/2013 11:25 ALBUMIN 3.2000 g/dL 07/01/2013 11:25 TOTAL BILI 0.5000 mg /dL 07/01/2013 11:25 LIPID PANEL Test Name Code Test Result Test Units Test Date/Time CHOLESTEROL 198.0000 mg/dL 07/01/2013 11:25 TRIGLYCERIDES 170.0000 mg/dL 07/01/2013 11:25 HDL 70.0000 mg/dL 07/01/2013 11:25 LDL, CALC 94.0000 mg /dL 07/01/2013 11:25 VLDL 34.0000 mg/dL 07/01/2013 11:25 CHOL/HDL RISK 2.8000 RATIO 07/01/2013 11:25 PT FASTING: ? N/A 07/01/2013 11:25 HGB A1C Test Name Code Test Result Test Units Test Date/Time HGB A1C 6.6000 % 07/01/2013 11:25 eAG 143.0000 mg/dL 07/01/2013 11:25 TSH Test Name Code Test Result Test Units Test Date/Time TSH 2.4900 uIU/mL 07/01/2013 13:36 CBC W/ DIFF Test Name Code Test Result Test Units Test Date/Time WBC 4.2000 x10^3 07/01/2013 11:25 RBC 4.1100 x10^6 07/01/2013 11:25 HEMOGLOBIN 12.9000 g /dL 07/01/2013 11:25 HEMATOCRIT 37.4000 % 07/01/2013 11:25 MCV 91.0000 fL 07/01/2013 11:25 MCH 31.3000 pg 07/01/2013 11:25 MCHC 34.3000 g/dL 07/01/2013 11:25 RDW 15.0000 % 07/01/2013 11:25 PLATELETS 158.0000 x10^3 07/01/2013 11:25 MPV 7.5000 fL 07/01/2013 11:25 NEUTROPHILS 49.8000 % 07/01/2013 11:25 LYMPHOCYTES 40.0000 % 07/01/2013 11:25 MONOCYTES 7.5000 % 07/01/2013 11:25 EOSINOPHILS 2.2000 % 07/01/2013 11:25 BASOPHILS 0.5000 % 07/01/2013 11:25 REFLEX MAN DIFF NO N /A 07/01/2013 11:25 Medications Unknown. Medications Administered Unknown. Encounters Unknown. Social History Smoking Status Code Start Date End Date Never smoker [id number] Patient Decision Aids Unknown. Instructions You were admitted to [facility] on 07/01/2013. You had the following tests done: WBC RBC HEMOGLOBIN HEMATOCRIT MCV MCH MCHC RDW PLATELETS MPV NEUTROPHILS LYMPHOCYTES MONOCYTES EOSINOPHILS BASOPHILS REFLEX MAN DIFF HGB A1C eAG GLUCOSE BUN CREATININE AGE GFR SODIUM POTASSIUM CHLORIDE CO2 CALCIUM AST ALT ALKALINE PHOS TOTAL PROTEIN ALBUMIN TOTAL BILI PT FASTING: CHOLESTEROL TRIGLYCERIDES HDL LDL, CALC VLDL CHOL/HDL RISK PSA TSH You were discharged from [facility] on 07/01/2013. Should you have any questions prior to discharge, please contact a member of your healthcare team. If you have left the hospital and have any questions, please contact your primary care physician. Chief Complaint and Reason For Visit Chief Complaint Date of Onset LAB Function Status Unknown. Plan of Care Unknown. Referral/Transition of Care Unknown.
--- OUTSIDE RECORDS SUMMARY | 2016-11-04 14:42 | XMS REPORT | CCD ---
Author Author GIBRAN GARCIA Organization Unknown Address [address] [place], [place] [id number] Phone 0 Care Team Providers Care Chemistry Quality Control Analyst Name Role Phone Lis DUNLAP Attending Physician 0 Vital Signs Unknown or Not Available. Allergies Allergy Code Allergy Type Reaction Status No Known Allergies 0 No known allergies Active Procedures Unknown or Not Available. History of Immunizations Immunization Code Date influenza, whole 16 03/19/2015 pneumococcal polysaccharide PPV23 33 09/1998 tetanus toxoid, adsorbed 35 06/22/2016 Problems Unknown or Not Available. Results C-REACTIVE PROTEIN - Collect Date/Time: 08/11/2016 14:30 Test Name Code Test Result Test Units Test Ref Range CRP 10 mg/L L=0 H=5 COMP METABOLIC - Collect Date/Time: 08/11/2016 14:30 Test Name Code Test Result Test Units Test Ref Range GLUCOSE 112 mg/dL L=70 H=110 BUN 15 mg/dL L=7 H=18 CREATININE 1.25 mg/ dL L=0.60 H=1.30 AGE 81 YEARS GFR 55.3 L=60.0 H=120 SODIUM 131 mmol/L L=136 H=145 POTASSIUM 4.0 mmol/ L L=3.5 H=5.1 CHLORIDE 100 mmol/L L=98 H=107 CO2 25 mmol/L L=21 H=32 CALCIUM 7.7 mg/dL L=8.5 H=10.1 AST 27 U/L L=15 H=37 ALT 22 U/L L=12 H=78 ALKALINE PHOS 226 U/ L L=46 H=116 TOTAL PROTEIN 5.3 g/ dL L=6.4 H=8.2 ALBUMIN 2.3 g/dL L=3.4 H=5.0 TOTAL BILI 0.70 mg/ dL L=0.00 H=1.00 HGB A1C - Collect Date/Time: 08/11/2016 14:30 Test Name Code Test Result Test Units Test Ref Range HGB A1C 4.9 % L=4.5 H=6.2 eAG 94 mg/dL PREALBUMIN - Collect Date/Time: 08/11/2016 14:30 Test Name Code Test Result Test Units Test Ref Range PREALBUMIN 10.4 mg/ dL L=18.0 H=35.7 Active Medications Unknown or Not Available. Medications Administered During Visit Unknown or Not Available. Encounters Encounter Diagnosis Diagnosis Code Start Date Non-pressure chronic ulcer of other part of right lower leg with fat layer exposed [id number] 08/11/2016 Social History Smoking Status Code Start Date End Date Never smoker [id number] Patient Decision Aids Unknown or Not Available. Discharge Instructions You were admitted to [facility] on 08/11/2016 13:31 with a principal diagnosis of Non-prs chronic ulcer oth prt r low leg w fat layer exp You had the following tests done: C- REACTIVE PROTEIN COMP METABOLIC HGB A1C PREALBUMIN You were discharged from [facility] on 08/11/2016 13:31 Should you have any questions prior to discharge, please contact a member of your healthcare team. If you have left the hospital and have any questions, please contact your primary care physician. Chief Complaint and Reason For Visit Chief Complaint Date of Onset WC Function Status Unknown or Not Available. Plan of Care Unknown or Not Available. Referral/Transition of Care Unknown or Not Available.
--- OUTSIDE RECORDS SUMMARY | 2016-11-04 14:42 | XMS REPORT | Continuity of Care Document ---
Author Author [facility] Organization [facility] Address Unknown Phone Unavailable Support Name Relationship Address Phone JITENDRA WHYTE MD Caregiver [address] [facility] [place] [address] Unavailable MELISSA FARRIS "LASHA" Caregiver [address] [place] [address] Unavailable RADHA GAONA Next Of Kin [address] [place], [place] [address] Insurance Providers Guarantor Chris Gaona Address [address] [place] [address] Email DENIED 16 Payer [facility] Policy Number [id number] Subscriber's Name Chris Gaona Relationship 18 Self Group Number [id number] Payer Medicare Policy Number [id number] Subscriber's Name Chris Gaona Relationship 18 Self Advance Directives Directive Response Recorded Date/Time Ordered Resuscitation Status Do Not Resuscitate 10/21/16 7:31am Resuscitation Documents on File No 10/21/16 11:03am DPOA for Healthcare Only Yes 10/21/16 11:03am Living Will Yes 10/21/16 11:03am Problems Active Problems Medical Problem Onset Date [...] Tablet 1 Tab Oral Daily 04/12/16 Insulin Aspart (Novolog Flexpen) 1 Unit Pen Sub-Q Three Times A Day 10/14/16 Insulin Glargine,Hum.rec.anlog (Lantus Solostar) 1 Unit Pen 15 Unit Sub-Q Bedtime 15 05/05/16 Levothyroxine Sodium (Synthroid) 75 Mcg Tablet 75 [...] Date/Time Onset Date Status Reason for Hospitalization US Guided Paracentesis 10/21/2016 3:32pm Not Applicable Not Applicable Hx Substance Use No 10/14/2016 11:11am Not Applicable Not Applicable Hx Alcohol Use No 10/14/2016 11:11am Not Applicable Not Applicable Has the pt used tobacco in the last 12 months No 10/21/2016 11:04am Not Applicable Not Applicable Query Response Start Date Stop Date Smoking Status Former smoker Hospital Discharge Instructions Instructions: Care Instructions: I was in the hospital because (patient own words): Remove Fluid from Lungs Discharge Diet: BEFORE Discharge Activity: -RESTART MEDS STOPPED FOR THIS PROCEDURE AT NEXT DAY. -MAY RETURN TO WORK THE NEXT DAY. MAY RESUME DRIVING AT NEXT DAY. -MAY SHOWER/ BATHE STARTING THE NEXT DAY. Follow Up Appointments: See discharge instructions Pending Lab / Results: No Pending Lab Expected Signs/Symptoms: see discharge instructions Notify Physician If: see discharge instructions During Business Hours:: Please call the physician's office at After Business Hours:: Please call [phone] and have the vacuum furnace operator page the physician. Pain Management/Treatment: as before Pain Scale Utilized to Educate Patient: 0-10 Pain Scale Wound/Incision Care: see discharge instructions Condition at time of discharge: Good Plan of Care Discharge Date 10/21/16 3:40pm Instructions/Education Provided Abdominal Paracentesis (DC) Prescriptions See Medication Section Functional Status Query Response Date Recorded Mobility Status Ambulatory October 21, 2016 11:01am Assistive Devices None October 21, 2016 11:01am Feeding Ability Independent October 21, 2016 11:01am Toileting Ability Independent October 21, 2016 11:01am Grooming Ability Independent October 21, 2016 11:01am Dressing Ability Independent October 21, 2016 11:01am Driving Ability Independent October 21, 2016 11:01am Housework Ability Independent October 21, 2016 11:01am Meal Preparation Ability Independent October 21, 2016 11:01am Stair Climbing Ability Independent October 21, 2016 11:01am Ability to complete ADL's impeded by No change October 21, 2016 11:03am Cognitive/Perceptual Impairments Impaired vision October 21, 2016 11:01am Visual Assistive Devices Glasses With patient October 21, 2016 11:01am Allergies, Adverse Reactions, Alerts Allergen Type Severity Reaction Status Last Updated Penicillin Adverse Reaction Unknown Active 10/14/16 Morphine Allergy Unknown HALLUCINATIONS Active 10/14/16 Erythromycin base Allergy Unknown Active 10/14/16 Atorvastatin Allergy Unknown Active 10/14/16 Immunizations Query Response on File Recorded Date/Time Hx Influenza Vaccination Y MARCH 2016 10/21/16 11:04am Hx Pneumococcal Vaccination Y MARCH 2016 10/21/16 11:04am Hx Influenza Vaccination Y MARCH 2016 10/21/16 11:04am Influenza Vaccine Hx 03/201610/21/16 12:35pm Vital Signs Acute Vital Signs Vital Response Date/Time Temperature (Fahrenheit) 96.2 deg F (96.8 - 99.1) 10/21/2016 11:00am Temperature (Calculated Celsius) 35.88333 degrees C (36.0 - 37.3) 10/21/2016 11:00am Temperature Source Oral 09/30/2016 11:30am Pulse Rate (adult) 55 bpm (60 - 100) 10/21/2016 1:30pm Respiratory Rate 18 breaths/min (10 - 20) 10/21/2016 1:30pm O2 Sat by Pulse Oximetry 99 % (90 - 100) 10/21/2016 1:30pm Oxygen Delivery Method Room Air 10/21/2016 1:30pm Oxygen Delivery Method Room Air 10/21/2016 11:00am Blood Pressure 106/57 mm Hg 10/21/2016 1:30pm Blood Pressure Source Automatic Cuff 10/21/2016 1:30pm Height (Feet) 5 feet 10/21/2016 11:02am Height (Inches) 10.00 inches 10/21/2016 11:02am Weight (Kilograms) 77.700 kg 10/21/2016 11:02am Body Mass Index (BMI) 24.6 10/21/2016 11:02am Results Laboratory Results Test Name Result Units Flags Reference Collection Date/Time Result Date/ Time Comments Platelet Count 128 T/MM3 L 130-400 09/30/2016 8:26am 09/30/2016 8:32am Prothromb Time International Ratio 1.12 H 0.76-1.04 09/30/2016 8:26am 09/30/2016 8:37am THERAPUTIC RANGE=2.00-3.00 FOR ANTI-THROMBOSIS THERAPUTIC RANGE=2.50-3.50 FOR IMPLANTED VALVE Name: CHRIS GAONA Unit #: [id number] : 1935 Sex: M Admit Date: Loc / Svc: SRG Discharge Date: DIAGNOSTIC IMAGING REPORT Report #: [id number] [facility] [place], [place] Indication:ITS.REASON: R18.8; K74.0 Procedure:US GUIDE PARACENTESIS, INITIAL PARACENTESIS: The procedure [...] is done from a right lateral approach. 5200 ml of straw colored fluid was taken off without complication. Following this, the patient was taken back to his recovery room to finish his albumin infusion. Impression: Successful paracentesis performed with 5200 mL of fluid removed. Jitendra Chappell RPA/ROBINSON performed this under my personal supervision. . Procedures Procedure Status Date Provider(s) Abd paracentesis w/imaging Completed 08/05/16 JITENDRA WHYTE MD Automated platelet count Completed 08/05/16 Prothrombin time Completed 08/05/16 [id number]"EQUAL TO 48 SQ. IN., WITHOUT ADHESIVE BORDER, EACH DR Completed 003"INFUSION, ALBUMIN (HUMAN), 25%, 50 ML" Completed 08/05/16165774"INFUSION, ALBUMIN (HUMAN), 25%, 50 ML" Completed 08/05/16 Abd paracentesis w/imaging Completed 08/17/16 JITENDRA WHYTE MD Automated platelet count Completed 08/17/16 Prothrombin time Completed 08/17/16880428"INFUSION, ALBUMIN (HUMAN), 25%, 50 ML" Completed 08/17/16 [id number]"INFUSION, ALBUMIN (HUMAN), 25%, 50 ML" Completed 08/17/16279866"INFUSION, ALBUMIN (HUMAN), 25%, 50 ML" Completed 08/17/16276904"INFUSION, ALBUMIN (HUMAN), 25%, 50 ML" Completed 08/17/16 Routine venipuncture Completed 09/01/16 Abd paracentesis w/imaging Completed 09/01/16 BJ FAIRBANKS MD Automated platelet count Completed 09/01/16 Prothrombin time Completed 09/01/16706906"INFUSION, NORMAL SALINE SOLUTION , 250 CC" Completed 09/01/16986694"INFUSION, ALBUMIN (HUMAN), 25%, 50 ML" Completed 09/01/16497544"INFUSION, ALBUMIN (HUMAN), 25%, 50 ML" Completed 09/01/16983908"INFUSION, ALBUMIN (HUMAN), 25%, 50 ML" Completed 09/01/16917354"INFUSION, ALBUMIN (HUMAN), 25%, 50 ML" Completed 09/01/16 Routine venipuncture Completed 09/08/16 Abd paracentesis w/imaging Completed 09/08/16 JITENDRA WHYTE MD Automated platelet count Completed 09/08/16 Prothrombin time Completed 09/08/16015282"INFUSION, NORMAL SALINE SOLUTION , 250 CC" Completed 09/08/16014023"INFUSION, ALBUMIN (HUMAN), 25%, 50 ML" Completed 09/08/16 Abd paracentesis w/imaging Completed 09/16/16 JITENDRA WHYTE MD [id number]"INFUSION, NORMAL SALINE SOLUTION , 250 CC" Completed 09/16/16470159"INFUSION, ALBUMIN (HUMAN), 25%, 50 ML" Completed 09/16/16 Abd paracentesis w/imaging Completed 09/23/16 JITENDRA WHYTE MD [id number]"INFUSION, NORMAL SALINE SOLUTION , 250 CC" Completed 09/23/16 861118"INFUSION, ALBUMIN (HUMAN), 25%, 50 ML" Completed 09/23/16 198621"INFUSION, ALBUMIN (HUMAN), 25%, 50 ML" Completed 09/23/16 [id number]"INFUSION, ALBUMIN (HUMAN), 25%, 50 ML" Completed 09/23/16 Routine venipuncture Completed 09/30/16 Abd paracentesis w/imaging Completed 09/30/16 JITENDRA WHYTE MD Automated platelet count Completed 09/30/16 Prothrombin time Completed 09/30/16"INFUSION, NORMAL SALINE SOLUTION , 250 CC" Completed 09/30/16"INFUSION, ALBUMIN (HUMAN), 25%, 50 ML" Completed 09/30/16"INFUSION, ALBUMIN (HUMAN), 25%, 50 ML" Completed 09/30/16 Abd paracentesis w/imaging Completed 10/07/16 JITENDRA WHYTE MD "INFUSION, NORMAL SALINE SOLUTION , 250 CC" Completed 10/07/16"INFUSION, ALBUMIN (HUMAN), 25%, 50 ML" Completed 10/07/16"INFUSION, ALBUMIN (HUMAN), 25%, 50 ML" Completed 10/07/16"INFUSION, ALBUMIN (HUMAN), 25%, 50 ML" Completed 10/07/16 Encounters Encounter Location Arrival/Admit Date Discharge/Depart Date Attending Provider [facility] 10/21/16 10:49am 10/21/16 3:40pm JITENDRA WHYTE MD [facility] 10/14/16 10:51am 10/14/16 5:45pm JITENDRA WHYTE MD [facility] 10/07/16 8:23am 10/07/16 3:02pm JITENDRA WHYTE MD [facility] 09/30/16 7:43am 09/30/16 2:45pm JITENDRA WHYTE MD [facility] 09/23/16 10:35am 09/23/16 4:21pm JITENDRA WHYTE MD [facility] 09/16/16 10:58am 09/16/16 4:30pm JITENDRA WHYTE MD [facility] 09/08/16 12:40pm 09/08/16 6:15pm JITENDRA WHYTE MD [facility] 09/01/16 12:12pm 09/01/16 6:15pm BJ FAIRBANKS MD [facility] 08/17/16 11:57am 08/17/16 7:10pm JITENDRA WHYTE MD [facility] 08/05/16 11:13am 08/05/16 7:30pm JITENDRA WHYTE MD
--- OUTSIDE RECORDS SUMMARY | 2016-11-04 14:42 | XMS REPORT | Continuity of Care Document ---
Author Author [facility] Organization [facility] Address Unknown Phone Unavailable Support Name Relationship Address Phone JITENDRA WHYTE MD Caregiver [address] [facility] [place] [address] Unavailable MELISSA FARRIS "LASHA" Caregiver [address] [place] [address] Unavailable RADHA GAONA Next Of Kin [address] [place], [place] [address] Insurance Providers Guarantor Chris Gaona Address [address] [place] [address] C Email DENIED [facility] Policy Number [id number] Subscriber's Name Chris Gaona Relationship 18 Self Group Number [id number] Payer Medicare Policy Number [id number] Subscriber's Name Chris Gaona Relationship 18 Self Advance Directives Directive Response Recorded Date/Time Ordered Resuscitation Status Full Code 09/08/16 10:04am Resuscitation Documents on File Yes 09/08/16 1:05pm DPOA for Healthcare Only No 09/08/16 1:05pm Living Will Yes 09/08/16 1:05pm Problems Active Problems Medical Problem Onset Date [...] Date/Time Onset Date Status Reason for Hospitalization Paracentesis 09/08/2016 5:38pm Not Applicable Not Applicable Chewing Tobacco Status No 09/07/2016 4:26pm Not Applicable Not Applicable Hx Substance Use No 09/07/2016 4:26pm Not Applicable Not Applicable Hx Alcohol Use No 09/07/2016 4:26pm Not Applicable Not Applicable Has the pt used tobacco in the last 12 months No 09/08/2016 1:07pm Not Applicable Not Applicable Query Response Start Date Stop Date Smoking Status Unknown if ever smoked Hospital Discharge Instructions Instructions: Care Instructions: I was in the hospital because (patient own words): TO GET MY BELLY PUIMPED. Discharge Diet: as before Discharge Activity: TOLERATED Follow Up Appointments: SCHEDULED Pending Lab / Results: No Pending Lab Patient Instructions: RESTART MEDS STOPPED FOR THIS PROCEDURETHE NEXT DAY. MAY RETURN TO WORK THE NEXT DAY. MAY DRIVE STARTING THE NEXT DAY. MAY SHOWER/BATHE STARTING THE NEXT DAY. Expected Signs/Symptoms: REVIEWED Notify Physician If: FOR ANY CONCERNS During Business Hours:: Please call the physician's office at After Business Hours:: Please call [phone] and have the barrel lathe operator inside page the physician. Pain Management/Treatment: N/A Pain Scale Utilized to Educate Patient: 0-10 Pain Scale Wound/Incision Care: N/A Condition at time of discharge: Good Plan of Care Discharge Date 09/08/16 6:15pm Instructions/Education Provided Abdominal Paracentesis (DC) Prescriptions See Medication Section Functional Status Query Response Date Recorded Mobility Status Ambulatory September 08, 2016 2:34pm Assistive Devices None September 08, 2016 2:34pm Feeding Ability Independent September 08, 2016 2:34pm Grooming Ability Independent September 08, 2016 2:34pm Dressing Ability Independent September 08, 2016 2:34pm Driving Ability Dependent September 08, 2016 2:34pm Housework Ability Assist September 08, 2016 2:34pm Meal Preparation Ability Assist September 08, 2016 2:34pm Stair Climbing Ability Assist September 08, 2016 2:34pm Ability to complete ADL's impeded by No change September 08, 2016 2:34pm Cognitive/Perceptual Impairments Impaired vision September 08, 2016 2:34pm Visual Assistive Devices Glasses September 08, 2016 2:34pm Allergies, Adverse Reactions, Alerts Allergen Type Severity Reaction Status Last Updated Morphine Allergy Unknown HALLUCINATIONS Active 09/01/16 Immunizations Query Response on File Recorded Date/Time Hx Influenza Vaccination Y MARCH 2016 09/08/16 1:07pm Hx Pneumococcal Vaccination Y MARCH 2016 09/08/16 1:07pm Hx Influenza Vaccination Y MARCH 2016 09/08/16 1:07pm Influenza Vaccine Hx FEB 2016 08/17/16 4:39pm Vital Signs Acute Vital Signs Vital Response Date/Time Temperature (Fahrenheit) 98.1 deg F (96.8 - 99.1) 09/08/2016 4:15pm Temperature (Calculated Celsius) 36.97673 degrees C (36.0 - 37.3) 09/08/2016 4:15pm Temperature Source Temporal 09/08/2016 3:45pm Pulse Rate (adult) 64 bpm (60 - 100) 09/08/2016 5:30pm Respiratory Rate 20 breaths/min (10 - 20) 09/08/2016 4:30pm O2 Sat by Pulse Oximetry 100 % (90 - 100) 09/08/2016 5:30pm Oxygen Delivery Method Room Air 09/08/2016 5:30pm Oxygen Delivery Method Room Air 09/08/2016 12:53pm Blood Pressure 128/63 mm Hg 09/08/2016 5:30pm Blood Pressure Source Automatic Cuff 09/08/2016 5:30pm Height (Feet) 5 feet 09/08/2016 1:04pm Height (Inches) 10.00 inches 09/08/2016 1:04pm Weight (Kilograms) 88.700 kg 09/01/2016 12:26pm Body Mass Index (BMI) 28.1 09/01/2016 12:26pm Results Laboratory Results Test Name Result Units Flags Reference Collection Date/Time Result Date/ Time Comments Platelet Count 171 T/MM3 130-400 09/08/2016 1:08pm 09/08/2016 1:33pm Prothromb Time International Ratio 1.06 H 0.76-1.04 09/08/2016 1:08pm 09/08/2016 1:38pm THERAPUTIC RANGE=2.00-3.00 FOR ANTI-THROMBOSIS THERAPUTIC RANGE=2.50-3.50 FOR IMPLANTED VALVE Name: CHRIS GAONA Unit #: [id number] : 1935 Sex: M Admit Date: Loc / Svc: SRG Discharge Date: DIAGNOSTIC IMAGING REPORT Report #: [id number] [facility] Grady, JOE Indication:ITS.REASON Procedure:US GUIDE PARACENTESIS, SUBSEQ PARACENTESIS: The [...] is done from a right lateral approach. 8400 ml of straw colored fluid was taken off without complication. Following this, the patient was taken back to his recovery room to finish his albumin infusion. Impression: Successful paracentesis performed with 8.4 L of fluid removed. Jitendra Chappell RPA/ROBINSON performed this under my personal supervision. . Procedures Procedure Status Date Provider(s) Routine venipuncture Completed 07/13/16 Abd paracentesis w/imaging Completed 07/13/16 JITENDRA WHYTE MD Automated platelet count Completed 07/13/16 Prothrombin time Completed 07/13/16991933"INFUSION, ALBUMIN (HUMAN), 25%, 50 ML" Completed 07/13/16 Abd paracentesis w/imaging Completed 08/05/16 JITENDRA WHYTE MD Automated platelet count Completed 08/05/16 Prothrombin time Completed 08/05/16 [id number]"EQUAL TO 48 SQ. IN., WITHOUT ADHESIVE BORDER, EACH DR Completed 003"INFUSION, ALBUMIN (HUMAN), 25%, 50 ML" Completed 08/05/16"INFUSION, ALBUMIN (HUMAN), 25%, 50 ML" Completed 08/05/16 Abd paracentesis w/imaging Completed 08/17/16 JITENDRA WHYTE MD Automated platelet count Completed 08/17/16 Prothrombin time Completed 08/17/16"INFUSION, ALBUMIN (HUMAN), 25%, 50 ML" Completed 08/17/16"INFUSION, ALBUMIN (HUMAN), 25%, 50 ML" Completed 08/17/16"INFUSION, ALBUMIN (HUMAN), 25%, 50 ML" Completed 08/17/16"INFUSION, ALBUMIN (HUMAN), 25%, 50 ML" Completed 08/17/16 Routine venipuncture Completed 09/01/16 Abd paracentesis w/imaging Completed 09/01/16 BJ FAIRBANKS MD Automated platelet count Completed 09/01/16 Prothrombin time Completed 09/01/16"INFUSION, NORMAL SALINE SOLUTION , 250 CC" Completed 09/01/16"INFUSION, ALBUMIN (HUMAN), 25%, 50 ML" Completed 09/01/16"INFUSION, ALBUMIN (HUMAN), 25%, 50 ML" Completed 09/01/16"INFUSION, ALBUMIN (HUMAN), 25%, 50 ML" Completed 09/01/16"INFUSION, ALBUMIN (HUMAN), 25%, 50 ML" Completed 09/01/16 Encounters Encounter Location Arrival/Admit Date Discharge/Depart Date Attending Provider [facility] 09/08/16 12:40pm 09/08/16 6:15pm JITENDRA WHYTE MD [facility] 09/01/16 12:12pm 09/01/16 6:15pm BJ FAIRBANKS MD [facility] 08/17/16 11:57am 08/17/16 7:10pm JITENDRA WHYTE MD [facility] 08/05/16 11:13am 08/05/16 7:30pm JITENDRA WHYTE MD [facility] 07/13/16 8:44am 07/13/16 3:25pm JITENDRA WHYTE MD
--- OUTSIDE RECORDS SUMMARY | 2016-11-04 14:42 | XMS REPORT | CCD ---
Author Author GIBRAN GARCIA Organization Unknown Address [address] [place], [place] [id number] Phone 0 Care Team Providers Care Scoop Operator Name Role Phone LASHA FARRIS Attending Physician [phone] [employer] Rounding Physician 0 Vital Signs Unknown or Not Available. Allergies Allergy Code Allergy Type Reaction Status No Known Allergies 0 No known allergies Active Procedures Unknown or Not Available. History of Immunizations Immunization Code Date influenza, whole 16 03/19/2015 pneumococcal polysaccharide PPV23 33 09/1998 Problems Unknown or Not Available. Results BASIC METABOLIC - Collect Date/Time: 10/05/2015 14:05 Test Name Code Test Result Test Units Test Ref Range GLUCOSE 137 mg/dL L=70 H=110 BUN 10 mg/dL L=7 H=18 CREATININE 1.00 mg/ dL L=0.60 H=1.30 AGE 80 YEARS GFR 71.7 SODIUM 140 mmol/L L=136 H=145 POTASSIUM 4.1 mmol/ L L=3.5 H=5.1 CHLORIDE 104 mmol/L L=98 H=107 CO2 29 mmol/L L=21 H=32 CALCIUM 8.6 mg/dL L=8.5 H=10.1 Active Medications Unknown or Not Available. Medications Administered During Visit Unknown or Not Available. Encounters Encounter Diagnosis Diagnosis Code Start Date Essential (primary) hypertension I10 Social History Smoking Status Code Start Date End Date Never smoker [id number] Patient Decision Aids Unknown or Not Available. Discharge Instructions You were admitted to [facility] on 10/05/2015 13:59 with a principal diagnosis of Essential (primary) hypertension You had the following tests done: BASIC METABOLIC You were discharged from [facility] on 10/05/2015 14:00 Should you have any questions prior to [...]
--- OUTSIDE RECORDS SUMMARY | 2016-11-04 14:42 | XMS REPORT | CCD ---
Author Author KIA LOTT Organization Unknown Address [address] [place], [place] [address] Phone 0 Care Team Providers Care Clinical Education Coordinator Name Role Phone Elieser LOVE Attending Physician 0 Vital Signs Unknown. Allergies Allergy Code Allergy Type Reaction Status No Known Allergies 0 No known allergies Active Procedures Unknown. History of Immunizations Unknown. Problems Unknown. Results BASIC METABOLIC Test Name Code Test Result Test Units Test Date/Time GLUCOSE 183.0000 mg/ dL 11/01/2013 12:10 BUN 24.0000 mg/dL 11/01/2013 12:10 CREATININE 1.1000 mg /dL 11/01/2013 12:10 [age] YE[age] 11/01/2013 12:10 GFR 68.6000 11/01/2013 12:10 SODIUM 141.0000 mmol /L 11/01/2013 12:10 POTASSIUM 4.0000 mmol/L 11/01/2013 12:10 CHLORIDE 104.0000 mmol/L 11/01/2013 12:10 CO2 32.0000 mmol/L 11/01/2013 12:10 CALCIUM 8.9000 mg/ dL 11/01/2013 12:10 Medications Unknown. Medications Administered Unknown. Encounters Unknown. Social History Smoking Status Code Start Date End Date Never smoker [id number] Patient Decision Aids Unknown. Discharge Instructions You were admitted to [facility] on 11/01/2013. You were discharged from [facility] on 11/01/2013. Should you have any questions prior to discharge, please contact a member of your healthcare team. If you have left the hospital and have any questions, please contact your primary care physician. Chief Complaint and Reason For Visit Chief Complaint Date of Onset LAB Function Status Unknown. Plan of Care Unknown. Referral/Transition of Care Unknown.
--- OUTSIDE RECORDS SUMMARY | 2016-11-04 14:42 | XMS REPORT | CCD ---
Author Author GIBRAN GARCIA Organization Unknown Address [address] [place], [place] [id number] Phone 0 Care Team Providers Care Pump Tender Name Role Phone LASHA FARRIS Attending Physician [phone] GIBRAN RODRÍGUEZ Rounding Physician 0 Vital Signs Unknown or Not Available. Allergies Allergy Code Allergy Type Reaction Status No Known Allergies 0 No known allergies Active Procedures Unknown or Not Available. History of Immunizations Immunization Code Date influenza, whole 16 03/19/2015 pneumococcal polysaccharide PPV23 33 09/1998 Problems Unknown or Not Available. Results BASIC METABOLIC - Collect Date/Time: 04/29/2016 09:17 Test Name Code Test Result Test Units Test Ref Range GLUCOSE 97 mg/dL L=70 H=110 BUN 13 mg/dL L=7 H=18 CREATININE 1.21 mg/ dL L=0.60 H=1.30 AGE 81 YEARS GFR 57.4 SODIUM 142 mmol/L L=136 H=145 POTASSIUM 3.9 mmol/ L L=3.5 H=5.1 CHLORIDE 104 mmol/L L=98 H=107 CO2 30 mmol/L L=21 H=32 CALCIUM 8.9 mg/dL L=8.5 H=10.1 HEPATIC FUNCTION - Collect Date/Time: 04/29/2016 09:17 Test Name Code Test Result Test Units Test Ref Range AST 33 U/L L=15 H=37 ALT 20 U/L L=12 H=78 ALKALINE PHOS 264 U/ L L=46 H=116 TOTAL PROTEIN 6.0 g/ dL L=6.4 H=8.2 ALBUMIN 2.9 g/dL L=3.4 H=5.0 TOTAL BILI 1.10 mg/ dL L=0.00 H=1.00 DIRECT BILI 0.40 mg/ dL L=0.00 H=0.30 CBC (HEMOGRAM ONLY) - Collect Date/Time: 04/29/2016 09:17 Test Name Code Test Result Test Units Test Ref Range WBC 3.5 x10^3 L=4.8 H=10.8 RBC 3.51 x10^6 L=4.70 H=6.10 HEMOGLOBIN 11.0 g/ dL L=14.0 H=18.0 HEMATOCRIT 33.4 % L=42.0 H=52.0 MCV 95 fL L=80 H=100 MCH 31.2 pg L=27.0 H=33.0 MCHC 32.8 g/dL L=33.0 H=37.0 RDW 15.0 % L=11.5 H=14.5 PLATELETS 156 x10^3 L=150 H=450 MPV 6.6 fL L=7.8 H=11.0 PT/INR - Collect Date/Time: 04/29/2016 09:17 Test Name Code Test Result Test Units Test Ref Range PT 11.3 Secs L=9.4 H=11.0 INR 1.11 L=0.00 H=4.00 HEPATITIS C VIRUS FIBROSURE - Collect Date/Time: 04/29/2016 09:17 Test Name Code Test Result Test Units Test Ref Range Fibrosis Score 32175-1 0.79 0.00-0.21 Necroinflammat ActivityScore 20878-6 0.13 0.00-0.17 Alpha 2-Macroglobulins,Qn 1835-8 241 mg/dL 110-276 Haptoglobin 4542-7 148 mg/dL 34-200 Apolipoprotein A-1 1869-7 135 mg/dL 101-178 Bilirubin, Total 1975-2 0.9 mg/dL 0.0-1.2 GGT 2324-2 179 IU/L 0-65 ALT (SGPT) P5P 1743-4 18 IU/L 0-55 Necroinflammat ActivityGrade 02268-9 A0- No activity N/A Active Medications Unknown or Not Available. Medications Administered During Visit Unknown or Not Available. Encounters Encounter Diagnosis Diagnosis Code Start Date Liver disease, unspecified K769 2015 Social History Smoking Status Code Start Date End Date Never smoker [id number] Patient Decision Aids Unknown or Not Available. Discharge Instructions You were admitted to [facility] on 04/29/2016 09:02 with a principal diagnosis of Liver disease, unspecified You had the following tests done: BASIC METABOLIC CBC (HEMOGRAM ONLY) HEPATIC FUNCTION HEPATITIS C VIRUS FIBROSURE PT/INR You were discharged from [facility] on 04/29/2016 09:02 Should you have any questions prior to [...]
--- OUTSIDE RECORDS SUMMARY | 2016-11-04 14:42 | XMS REPORT | CCD ---
Author Author GIBRAN GARCIA Organization Unknown Address [address], [place] [address] Phone 0 Care Team Providers Care Nozzle Tender Name Role Phone LASHA FARRIS Attending Physician [phone] Vital Signs Unknown or Not Available. Allergies Allergy Code Allergy Type Reaction Status No Known Allergies 0 No known allergies Active Procedures Procedure Code Procedure Type Date CHEST [id number] 05/31/2016 History of Immunizations Immunization Code Date influenza, whole 16 03/19/2015 pneumococcal polysaccharide PPV23 33 09/1998 Problems Unknown or Not Available. Results Unknown or Not Available. Active Medications Unknown or Not Available. Medications Administered During Visit Unknown or Not Available. Encounters Encounter Diagnosis Diagnosis Code Start Date Cough R05 05/31/2016 Social History Smoking Status Code Start Date End Date Never smoker [id number] Patient Decision Aids Unknown or Not Available. Discharge Instructions You were admitted to [facility] on 05/31/2016 13:35 with a principal diagnosis of Cough You were discharged from [facility] on 05/31/2016 13:35 Should you have any questions prior to discharge, please contact a member of your healthcare team. If you have left the hospital and have any questions, please contact your primary care physician. Chief Complaint and Reason For Visit Chief Complaint Date of Onset CXRAY Function Status Unknown or Not Available. Plan of Care Unknown or Not Available. Referral/Transition of Care Unknown or Not Available.
--- OUTSIDE RECORDS SUMMARY | 2016-11-04 14:42 | XMS REPORT | CCD ---
Author Author KIA LOTT Organization Unknown Address [address] [place] [phone] Phone 0 Care Team Providers Care Materials And Processes Manager Name Role Phone Elieser LOVE Attending Physician 0 Vital Signs Unknown. Allergies Allergy Code Allergy Type Reaction Status No Known Allergies 0 No known allergies Active Procedures Unknown. History of Immunizations Unknown. Problems Unknown. Results CARDIAC PANEL Test Name Code Test Result Test Units Test Date/Time CKMB 1.4000 ng/mL 10/28/2013 13:40 CPK 71.0000 U/L 10/28/2013 13:40 CKMB% 2.0000 % 10/28/2013 13:40 TROPONIN I 0.0200 ng /mL 10/28/2013 13:40 TSH Test Name Code Test Result Test Units Test Date/Time TSH 3.6000 uIU/mL 10/28/2013 13:40 BASIC METABOLIC Test Name Code Test Result Test Units Test Date/Time GLUCOSE 197.0000 mg/ dL 10/28/2013 13:40 BUN 21.0000 mg/dL 10/28/2013 13:40 CREATININE 1.0000 mg /dL 10/28/2013 13:40 AGE 78.0000 YE[age] 10/28/2013 13:40 GFR 76.6000 10/28/2013 13:40 SODIUM 140.0000 mmol /L 10/28/2013 13:40 POTASSIUM 4.2000 mmol/L 10/28/2013 13:40 CHLORIDE 105.0000 mmol/L 10/28/2013 13:40 CO2 30.0000 mmol/L 10/28/2013 13:40 CALCIUM 8.9000 mg/ dL 10/28/2013 13:40 CBC W/ DIFF Test Name Code Test Result Test Units Test Date/Time WBC 5.1000 x10^3 10/28/2013 13:40 RBC 3.7300 x10^6 10/28/2013 13:40 HEMOGLOBIN 11.0000 g /dL 10/28/2013 13:40 HEMATOCRIT 32.6000 % 10/28/2013 13:40 MCV 88.0000 fL 10/28/2013 13:40 MCH 29.6000 pg 10/28/2013 13:40 MCHC 33.8000 g/dL 10/28/2013 13:40 RDW 16.1000 % 10/28/2013 13:40 PLATELETS 132.0000 x10^3 10/28/2013 13:40 MPV 6.7000 fL 10/28/2013 13:40 NEUTROPHILS 52.7000 % 10/28/2013 13:40 LYMPHOCYTES 35.5000 % 10/28/2013 13:40 MONOCYTES 9.2000 % 10/28/2013 13:40 EOSINOPHILS 1.9000 % 10/28/2013 13:40 BASOPHILS 0.7000 % 10/28/2013 13:40 REFLEX MAN DIFF NO N /A 10/28/2013 13:40 PRO B-TYPE NATRIURETIC PEPTIDE Test Name Code Test Result Test Units Test Date/Time PBNP 183.0000 pg/mL 10/28/2013 13:40 PT/INR Test Name Code Test Result Test Units Test Date/Time PT 35.1000 Secs 10/28/2013 13:40 INR 3.3600 10/28/2013 13:40 Medications Unknown. Medications Administered Unknown. Encounters Unknown. Social History Smoking Status Code Start Date End Date Never smoker [id number] Patient Decision Aids Unknown. Instructions You were admitted to [facility] on 10/28/2013. You were discharged from [facility] on 10/28/2013. Should you have any questions prior to discharge, please contact a member of your healthcare team. If you have left the hospital and have any questions, please contact your primary care physician. Chief Complaint and Reason For Visit Chief Complaint Date of Onset LAB Function Status Unknown. Plan of Care Unknown. Referral/Transition of Care Unknown.
--- OUTSIDE RECORDS SUMMARY | 2016-11-04 14:42 | XMS REPORT | CCD ---
Author Author GIBRAN GARCIA Organization Unknown Address [address] [place], [place] [phone] Phone 0 Care Team Providers Care Players Club Representative Name Role Phone DAYLIN SPAULDING Attending Physician 0 DAYLIN SPAULDING Primary Surgeon 0 Vital Signs Unknown or Not Available. Allergies Allergy Code Allergy Type Reaction Status No Known Allergies 0 No known allergies Active Procedures Unknown or Not Available. History of Immunizations Immunization Code Date influenza, whole 16 03/19/2015 pneumococcal polysaccharide PPV23 33 09/1998 Problems Unknown or Not Available. Results COMP METABOLIC - Collect Date/Time: 09/16/2015 15:54 Test Name Code Test Result Test Units Test Ref Range GLUCOSE 89 mg/dL L=70 H=110 BUN 13 mg/dL L=7 H=18 CREATININE 0.95 mg/ dL L=0.60 H=1.30 AGE 80 YEARS GFR 76.1 SODIUM 142 mmol/L L=136 H=145 POTASSIUM 3.8 mmol/ L L=3.5 H=5.1 CHLORIDE 107 mmol/L L=98 H=107 CO2 30 mmol/L L=21 H=32 CALCIUM 8.4 mg/dL L=8.5 H=10.1 AST 28 U/L L=15 H=37 ALT 25 U/L L=12 H=78 ALKALINE PHOS 151 U/ L L=46 H=116 TOTAL PROTEIN 6.2 g/ dL L=6.4 H=8.2 ALBUMIN 2.9 g/dL L=3.4 H=5.0 TOTAL BILI 0.80 mg/ dL L=0.00 H=1.00 PRO B-TYPE NATRIURETIC PEPTIDE - Collect Date/Time: 09/16/2015 15:54 Test Name Code Test Result Test Units Test Ref Range PBNP 240 pg/mL L=0 H=450 CBC W/ DIFF - Collect Date/Time: 09/16/2015 15:54 Test Name Code Test Result Test Units Test Ref Range WBC 3.6 x10^3 L=4.8 H=10.8 RBC 3.59 x10^6 L=4.70 H=6.10 HEMOGLOBIN 10.5 g/ dL L=14.0 H=18.0 HEMATOCRIT 31.7 % L=42.0 H=52.0 MCV 88 fL L=80 H=100 MCH 29.3 pg L=27.0 H=33.0 MCHC 33.1 g/dL L=33.0 H=37.0 RDW 17.0 % L=11.5 H=14.5 PLATELETS 136 x10^3 L=150 H=450 MPV 7.1 fL L=7.8 H=11.0 NEUTROPHILS 51.6 % L=40.0 H=80.0 LYMPHOCYTES 36.7 % L=20.0 H=45.0 MONOCYTES 8.8 % L=0.0 H=10.0 EOSINOPHILS 2.0 % L=0.0 H=5.0 BASOPHILS 0.9 % L=0.0 H=2.0 REFLEX MAN DIFF NO N /A UA AUTO W/ MICRO - Collect Date/Time: 09/16/2015 15:54 Test Name Code Test Result Test Units Test Ref Range COLOR Yellow N/A NORMAL: Yellow APPEARANCE Clear N/ A NORMAL: Clear GLUCOSE Negative N/ A NORMAL: Negative BILIRUBIN Negative N /A NORMAL: Negative KETONE Trace N/A NORMAL: Negative SPEC GRAVITY 1.025 N /A NORMAL: 1.005-1.030 BLOOD Trace-ly N/A NORMAL: Negative PROTEIN Negative N/ A NORMAL: Negative PH 5.0 N/A NORMAL: 5.0-8.0 UROBILINOGEN 0.2 N/ A NORMAL: Negative NITRITE Negative N/ A NORMAL: Negative LEUKOCYTES Negative N/A NORMAL: Negative MICRO RBC None Seen N/A NORMAL: 0-2 MICRO WBC 0-2 N/A NORMAL: 0-2 BACTERIA Trace N/A NORMAL: None-Trace EPI CELLS 0-5 N/A NORMAL: 0-15 MUCUS Small N/A NORMAL: None-Small AMORPHOUS None Seen N/A NORMAL: None Seen YEAST None Seen N/A NORMAL: None Seen CRYSTALS None Seen N /A NORMAL: None Seen CAST Hyaline C N/A NORMAL: None Seen URINE CULTURE? NO N/ A Active Medications Unknown or Not Available. Medications Administered During Visit Unknown or Not Available. Encounters Encounter Diagnosis Diagnosis Code Start Date Abdominal distension (gaseous) R140 09/15 Social History Smoking Status Code Start Date End Date Never smoker [id number] Patient Decision Aids Unknown or Not Available. Discharge Instructions You were admitted to [facility] on 09/16/2015 15:26 with a principal diagnosis of Abdominal distension (gaseous) You had the following tests done: CBC W / DIFF COMP METABOLIC PRO B-TYPE NATRIURETIC PEPTIDE UA AUTO W/ MICRO You were discharged from [facility] on 09/16/2015 17:30 Should you have any questions prior to discharge, please contact a member of your healthcare team. If you have left the hospital and have any questions, please contact your primary care physician. Chief Complaint and Reason For Visit Chief Complaint Date of Onset SWELLING Function Status Unknown or Not Available. Plan of Care Unknown or Not Available. Referral/Transition of Care Unknown or Not Available.
--- OUTSIDE RECORDS SUMMARY | 2016-11-04 14:42 | XMS REPORT | Continuity of Care Document ---
Author Author [facility] Organization [facility] Address Unknown Phone Unavailable Allergies Active Description Code Type Severity Reaction Onset Reported/Identified Relationship to Patient Clinical Status Yes No Known Allergies NKMA N/A N/A 08/10/2015 Yes atorvastatin atorvastatin Drug Allergy Unknown . 05/24/2016 Yes erythromycin base erythromycin base Drug Allergy Unknown . 05/24/2016 Yes No Known Allergies No Known Allergies Drug Allergy Unknown N/A 05/24/2016 Yes Penicillins Penicillins Drug Allergy Unknown . 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 08/31/2015 Lizzy Whittaker Final I25.2 Old myocardial infarction 08/31/2015 Lizzy Whittaker Final K55.9 Vascular disorder of intestine, unspecified 08/31/2015 Lizzy Whittaker Final K57.30 Diverticulosis of large intestine without perforation or abscess without bl 08/31/2015 Lizzy Whittaker Final 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 08/31/2015 Lizzy Whittaker Final Z79.4 terminologist (current) use of insulin 08/31/2015 Lizzy Whittaker Final Z79.82 terminologist (current) use of aspirin 08/31/2015 Lizzy Whittaker Final Z85.46 Personal history of malignant neoplasm of prostate 08/31/2015 Lizzy Whittaker Final Z87.891 Personal history of nicotine dependence 05/24/2016 Starr SÁNCHEZ, Silverio Simpson D50.9 IRON DEFICIENCY ANEMIA, UNSPECIFIED 05/24/2016 Silverio Clements MD D64.9 ANEMIA, UNSPECIFIED 05/24/2016 Silverio Clements MD E03.9 HYPOTHYROIDISM, UNSPECIFIED 05/24/2016 Silverio Clements MD E11.9 TYPE 2 DIABETES MELLITUS WITHOUT COMPLICATIONS 05/24/2016 Silverio Clements MD I25.10 ATHSCL HEART DISEASE OF [place] CORONARY ARTERY W/O 05/24/2016 Silverio Clements MD I25.2 OLD MYOCARDIAL INFARCTION 05/24/2016 Silverio Clements MD I48.91 UNSPECIFIED ATRIAL FIBRILLATION 05/24/2016 Silverio Clements MD I85.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 05/24/2016 Silverio Clements MD 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, PART UNSP, 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 05/24/2016 Silverio Clements MD K64.8 OTHER HEMORRHOIDS 05/24/2016 Silverio Clements MD K74.69 OTHER CIRRHOSIS OF LIVER 05/24/2016 Silverio Clements MD K76.6 PORTAL HYPERTENSION 05/24/2016 Silverio Clements MD K92.2 GASTROINTESTINAL HEMORRHAGE, UNSPECIFIED 05/24/2016 Silverio Clements MD R16.1 SPLENOMEGALY, NOT ELSEWHERE CLASSIFIED 05/24/2016 Silverio Clements MD R18.8 OTHER ASCITES 05/24/2016 Silverio Clements MD R19.7 DIARRHEA, UNSPECIFIED 05/24/2016 Silverio Clements MD T45.525A ADVERSE EFFECT OF ANTITHROMBOTIC DRUGS, INITIAL EN 05/24/2016 Silverio Clements MD Z85.46 PERSONAL HISTORY OF MALIGNANT NEOPLASM OF PROSTATE 05/24/2016 Silverio Clements MD Z88.0 ALLERGY STATUS TO PENICILLIN 05/24/2016 Silverio Clements MD Z88.1 ALLERGY STATUS TO OTHER ANTIBIOTIC AGENTS STATUS 05/24/2016 Silverio Clements MD Z88.8 ALLERGY STATUS TO OTH DRUG/MEDS/BIOL SUBST STATUS 05/24/2016 Silverio Clements MD Z98.49 CATARACT EXTRACTION STATUS, UNSPECIFIED EYE Procedures Code Description Performed By Performed On [id number] Inspection of Lower Intestinal Tract, Via Natural or Artificial Opening End 08/14/2015 [id number] INSPECTION OF UPPER INTESTINAL TRACT, ENDO Val Smith DO 05/24/2016 [id number] INSPECTION OF LOWER INTESTINAL TRACT, ENDO Val Smith DO 05/24/2016 Encounters ACCT No. Visit Date/Time Discharge Status Pt. Type Provider Facility Loc./Unit Complaint [id number] 08/10/2015 21:55:00 2015 15:20:00 DIS Inpatient Lizzy Whittaker [facility] [id number] poss ischemic bowel
--- OUTSIDE RECORDS SUMMARY | 2016-11-04 14:42 | XMS REPORT | CCD ---
Author Author KIA LOTT Organization Unknown Address [address], [place] [address] Phone 0 Care Team Providers Care Tree Feller Operator Name Role Phone Suze CHAPA Attending Physician 0 ANAM MATHIAS Rounding Physician [phone] Vital Signs Unknown or Not Available. Allergies Allergy Code Allergy Type Reaction Status No Known Allergies 0 No known allergies Active Procedures Unknown or Not Available. History of Immunizations Unknown or Not Available. Problems Unknown or Not Available. Results BASIC METABOLIC Test Name Code Test Result Test Units Test Date/Time GLUCOSE 156 mg/dL 01/23/2014 13:00 BUN 17 mg/dL 01/23/2014 13:00 CREATININE 1.30 mg/ dL 01/23/2014 13:00 AGE 79 YEARS 01/23/2014 13:00 GFR 56.5 01/23/2014 13:00 SODIUM 142 mmol/L 01/23/2014 13:00 POTASSIUM 3.9 mmol/ L 01/23/2014 13:00 CHLORIDE 105 mmol/L 01/23/2014 13:00 CO2 31 mmol/L 01/23/2014 13:00 CALCIUM 8.9 mg/dL 01/23/2014 13:00 PRO B-TYPE NATRIURETIC PEPTIDE Test Name Code Test Result Test Units Test Date/Time PBNP 160 pg/mL 01/23/2014 13:00 TSH Test Name Code Test Result Test Units Test Date/Time TSH 3.46 uIU/mL 01/23/2014 13:00 CBC W/ DIFF Test Name Code Test Result Test Units Test Date/Time WBC 4.7 x10^3 01/23/2014 13:00 RBC 3.37 x10^6 01/23/2014 13:00 HEMOGLOBIN 9.5 g/dL 01/23/2014 13:00 HEMATOCRIT 28.6 % 01/23/2014 13:00 MCV 85 fL 01/23/2014 13:00 MCH 28.2 pg 01/23/2014 13:00 MCHC 33.1 g/dL 01/23/2014 13:00 RDW 15.2 % 01/23/2014 13:00 PLATELETS 152 x10^3 01/23/2014 13:00 MPV 6.9 fL 01/23/2014 13:00 NEUTROPHILS 50.2 % 01/23/2014 13:00 LYMPHOCYTES 35.1 % 01/23/2014 13:00 MONOCYTES 9.5 % 01/23/2014 13:00 EOSINOPHILS 2.2 % 01/23/2014 13:00 BASOPHILS 3.0 % 01/23/2014 13:00 REFLEX MAN DIFF NO N /A 01/23/2014 13:00 UA AUTO W/ MICRO Test Name Code Test Result Test Units Test Date/Time COLOR Yellow N/A 01/23/2014 13:00 APPEARANCE Clear N/ A 01/23/2014 13:00 GLUCOSE Negative N/ A 01/23/2014 13:00 BILIRUBIN Negative N /A 01/23/2014 13:00 KETONE Negative N/A 01/23/2014 13:00 SPEC GRAVITY 1.020 N /A 01/23/2014 13:00 BLOOD Trace-int N/A 01/23/2014 13:00 PROTEIN Negative N/ A 01/23/2014 13:00 PH 5.0 N/A 01/23/2014 13:00 UROBILINOGEN 0.2 N/ A 01/23/2014 13:00 NITRITE Negative N/ A 01/23/2014 13:00 LEUKOCYTES Negative N/A 01/23/2014 13:00 MICRO RBC 0-2 N/A 01/23/2014 13:00 MICRO WBC None Seen N/A 01/23/2014 13:00 BACTERIA Trace N/A 01/23/2014 13:00 EPI CELLS 0-5 N/A 01/23/2014 13:00 MUCUS Trace N/A 01/23/2014 13:00 AMORPHOUS None Seen N/A 01/23/2014 13:00 YEAST None Seen N/A 01/23/2014 13:00 CRYSTALS None Seen N /A 01/23/2014 13:00 CAST Hyaline C N/A 01/23/2014 13:00 URINE CULTURE? NO N/ A 01/23/2014 13:00 BB ABO/RH Test Name Code Test Result Test Units Test Date/Time ABO/RH O POSITIVE N/ A 01/23/2014 13:00 BB ANTIBODY SCREEN Test Name Code Test Result Test Units Test Date/Time AB SCREEN NEGATIVE N /A 01/23/2014 13:00 BB CROSSMATCH IS Test Name Code Test Result Test Units Test Date/Time ABO/RH O POSITIVE N/ A 01/23/2014 13:00 AB SCREEN NEGATIVE N /A 01/23/2014 13:00 DONOR ABO/Rh O POSITIVE N/A 01/23/2014 13:00 CROSSMATCH COMPATIBLE N/A 01/23/2014 13:00 PREV REACTION NO N/ A 01/23/2014 13:00 Medications Unknown or Not Available. Medications Administered Unknown or Not Available. Encounters Unknown or Not Available. Social History Smoking Status Code Start Date End Date Never smoker [id number] Patient Decision Aids Unknown or Not Available. Discharge Instructions You were admitted to [facility] on 01/23/2014. You were discharged from [facility] on 01/23/2014. Should you have any questions prior to discharge, please contact a member of your healthcare team. If you have left the hospital and have any questions, please contact your primary care physician. Chief Complaint and Reason For Visit Chief Complaint Date of Onset XRAY Function Status Unknown or Not Available. Plan of Care Unknown or Not Available. Referral/Transition of Care Unknown or Not Available.
--- OUTSIDE RECORDS SUMMARY | 2016-11-04 14:42 | XMS REPORT | CCD ---
Author Author GIBRAN GARCIA Organization Unknown Address [address], [place] [address] Phone 0 Care Team Providers Care Garage Construction Equipment Mechanic Name Role Phone MUKUND BELLO Attending Physician 0 MUKUND BELLO Primary Surgeon 0 Vital Signs Unknown or Not Available. Allergies Allergy Code Allergy Type Reaction Status No Known Allergies 0 No known allergies Active Procedures Unknown or Not Available. History of Immunizations Immunization Code Date influenza, whole 16 03/19/2015 pneumococcal polysaccharide PPV23 33 09/1998 Problems Unknown or Not Available. Results AMYLASE - Collect Date/Time: 09/18/2015 06:33 Test Name Code Test Result Test Units Test Ref Range AMYLASE 22 U/L L=25 H=115 CARDIAC PANEL - Collect Date/Time: 09/18/2015 06:33 Test Name Code Test Result Test Units Test Ref Range CKMB 0.9 ng/mL L=0.0 H=3.6 CPK 45 U/L L=26 H=308 CKMB% 2.0 % L=0.0 H=4.0 TROPONIN I 0.04 ng/ mL L=0.00 H=0.05 COMP METABOLIC - Collect Date/Time: 09/18/2015 06:33 Test Name Code Test Result Test Units Test Ref Range GLUCOSE 120 mg/dL L=70 H=110 BUN 14 mg/dL L=7 H=18 CREATININE 1.07 mg/ dL L=0.60 H=1.30 AGE 80 YEARS GFR 66.3 SODIUM 144 mmol/L L=136 H=145 POTASSIUM 3.9 mmol/ L L=3.5 H=5.1 CHLORIDE 106 mmol/L L=98 H=107 CO2 28 mmol/L L=21 H=32 CALCIUM 8.4 mg/dL L=8.5 H=10.1 AST 30 U/L L=15 H=37 ALT 23 U/L L=12 H=78 ALKALINE PHOS 151 U/ L L=46 H=116 TOTAL PROTEIN 6.1 g/ dL L=6.4 H=8.2 ALBUMIN 2.9 g/dL L=3.4 H=5.0 TOTAL BILI 0.90 mg/ dL L=0.00 H=1.00 LIPASE - Collect Date/Time: 09/18/2015 06:33 Test Name Code Test Result Test Units Test Ref Range LIPASE 63 U/L L=73 H=393 MAGNESIUM - Collect Date/Time: 09/18/2015 06:33 Test Name Code Test Result Test Units Test Ref Range MAGNESIUM 1.8 mg/dL L=1.8 H=2.4 PRO B-TYPE NATRIURETIC PEPTIDE - Collect Date/Time: 09/18/2015 06:33 Test Name Code Test Result Test Units Test Ref Range PBNP 297 pg/mL L=0 H=450 PSA - Collect Date/Time: 09/18/2015 06:33 Test Name Code Test Result Test Units Test Ref Range PSA 0.55 ng/mL L=0.00 H=4.00 CBC W/ DIFF - Collect Date/Time: 09/18/2015 06:33 Test Name Code Test Result Test Units Test Ref Range WBC 5.4 x10^3 L=4.8 H=10.8 RBC 3.61 x10^6 L=4.70 H=6.10 HEMOGLOBIN 10.3 g/ dL L=14.0 H=18.0 HEMATOCRIT 32.0 % L=42.0 H=52.0 MCV 89 fL L=80 H=100 MCH 28.6 pg L=27.0 H=33.0 MCHC 32.3 g/dL L=33.0 H=37.0 RDW 16.7 % L=11.5 H=14.5 PLATELETS 119 x10^3 L=150 H=450 MPV 7.1 fL L=7.8 H=11.0 NEUTROPHILS 79.9 % L=40.0 H=80.0 LYMPHOCYTES 11.0 % L=20.0 H=45.0 MONOCYTES 7.2 % L=0.0 H=10.0 EOSINOPHILS 0.2 % L=0.0 H=5.0 BASOPHILS 1.7 % L=0.0 H=2.0 REFLEX MAN DIFF NO N /A PT/INR - Collect Date/Time: 09/18/2015 06:33 Test Name Code Test Result Test Units Test Ref Range PT 10.2 Secs L=9.2 H=10.8 INR 1.02 L=0.00 H=4.00 PTT - Collect Date/Time: 09/18/2015 06:33 Test Name Code Test Result Test Units Test Ref Range PTT 25.6 Secs L=22.0 H=30.0 UA AUTO W/ MICRO - Collect Date/Time: 09/18/2015 06:55 Test Name Code Test Result Test Units Test Ref Range COLOR Yellow N/A NORMAL: Yellow APPEARANCE Clear N/ A NORMAL: Clear GLUCOSE Negative N/ A NORMAL: Negative BILIRUBIN Negative N /A NORMAL: Negative KETONE 80 N/A NORMAL: Negative SPEC GRAVITY 1.025 N /A NORMAL: 1.005-1.030 BLOOD Negative N/A NORMAL: Negative PROTEIN Negative N/ A NORMAL: Negative PH 5.0 N/A NORMAL: 5.0-8.0 UROBILINOGEN 1.0 N/ A NORMAL: Negative NITRITE Negative N/ A NORMAL: Negative LEUKOCYTES Negative N/A NORMAL: Negative MICRO RBC None Seen N/A NORMAL: 0-2 MICRO WBC None Seen N/A NORMAL: 0-2 BACTERIA Trace N/A NORMAL: None-Trace EPI CELLS 0-5 N/A NORMAL: 0-15 MUCUS Trace N/A NORMAL: None-Small AMORPHOUS None Seen N/A NORMAL: None Seen YEAST None Seen N/A NORMAL: None Seen CRYSTALS None Seen N /A NORMAL: None Seen CAST None Seen N/A NORMAL: None Seen URINE CULTURE? NO N/ A Active Medications Unknown or Not Available. Medications Administered During Visit Unknown or Not Available. Encounters Encounter Diagnosis Diagnosis Code Start Date Unspecified cirrhosis of liver [id number] 06/2015 Social History Smoking Status Code Start Date End Date Never smoker [id number] Patient Decision Aids Unknown or Not Available. 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 If you have left the hospital and have any questions, please contact your primary care physician. Chief Complaint and Reason For Visit Chief Complaint Date of Onset ABD PAIN, SWELLING IN FEET AND LEGS 09/18/2015 Function Status Unknown or Not Available. Plan of Care Unknown or Not Available. Referral/Transition of Care Unknown or Not Available.
--- OUTSIDE RECORDS SUMMARY | 2016-11-04 14:42 | XMS REPORT | CCD ---
Author Author GIBRAN GARCIA Organization Unknown Address [address] [place], [place] [address] Phone 0 Care Team Providers Care Staff Development Coordinator Rn Name Role Phone Lis DUNLAP Attending Physician 0 Lis DUNLAP Primary Surgeon 0 JAYME Ross Nurse Assisstant 0 Vital Signs Unknown or Not Available. Allergies Allergy Code Allergy Type Reaction Status No Known Allergies 0 No known allergies Active Procedures Unknown or Not Available. History of Immunizations Immunization Code Date influenza, whole 16 03/19/2015 pneumococcal polysaccharide PPV23 33 09/1998 Problems Unknown or Not Available. Results COMP METABOLIC - Collect Date/Time: 05/24/2016 10:00 Test Name Code Test Result Test Units Test Ref Range GLUCOSE 142 mg/dL L=70 H=110 BUN 12 mg/dL L=7 H=18 CREATININE 1.32 mg/ dL L=0.60 H=1.30 AGE 81 YEARS GFR 51.9 L=60.0 H=120 SODIUM 140 mmol/L L=136 H=145 POTASSIUM 3.8 mmol/ L L=3.5 H=5.1 CHLORIDE 105 mmol/L L=98 H=107 CO2 28 mmol/L L=21 H=32 CALCIUM 8.3 mg/dL L=8.5 H=10.1 AST 35 U/L L=15 H=37 ALT 32 U/L L=12 H=78 ALKALINE PHOS 290 U/ L L=46 H=116 TOTAL PROTEIN 5.9 g/ dL L=6.4 H=8.2 ALBUMIN 2.9 g/dL L=3.4 H=5.0 TOTAL BILI 1.20 mg/ dL L=0.00 H=1.00 CBC W/ DIFF - Collect Date/Time: 05/24/2016 10:00 Test Name Code Test Result Test Units Test Ref Range WBC 3.3 x10^3 L=4.8 H=10.8 RBC 3.56 x10^6 L=4.70 H=6.10 HEMOGLOBIN 11.7 g/ dL L=14.0 H=18.0 HEMATOCRIT 33.4 % L=42.0 H=52.0 MCV 94 fL L=80 H=100 MCH 32.8 pg L=27.0 H=33.0 MCHC 35.0 g/dL L=33.0 H=37.0 RDW 15.0 % L=11.5 H=14.5 PLATELETS 118 x10^3 L=150 H=450 MPV 6.2 fL L=7.8 H=11.0 NEUTROPHILS 52.3 % L=40.0 H=80.0 LYMPHOCYTES 35.6 % L=20.0 H=45.0 MONOCYTES 9.8 % L=0.0 H=10.0 EOSINOPHILS 1.7 % L=0.0 H=5.0 BASOPHILS 0.6 % L=0.0 H=2.0 REFLEX MAN DIFF NO N /A CORRECT TMS N/A PT/INR - Collect Date/Time: 05/24/2016 10:00 Test Name Code Test Result Test Units Test Ref Range PT 11.9 Secs L=9.4 H=11.0 INR 1.17 L=0.00 H=4.00 PTT - Collect Date/Time: 05/24/2016 10:00 Test Name Code Test Result Test Units Test Ref Range PTT 34.1 Secs L=22.0 H=30.0 Active Medications Unknown or Not Available. Medications Administered During Visit Unknown or Not Available. Encounters Encounter Diagnosis Diagnosis Code Start Date Hemorrhage of anus and rectum K625 2015 Social History Smoking Status Code Start Date End Date Former smoker [id number] Patient Decision Aids Unknown or Not Available. Discharge Instructions You were admitted to [facility] on 05/24/2016 09:48 with a principal diagnosis of Hemorrhage of anus and rectum You had the following tests done: CBC W / DIFF COMP METABOLIC PT/INR PTT You were discharged from [facility] on 05/24/2016 11:51 Should you have any questions prior to discharge, please contact a member of your healthcare team. If you have left the hospital and have any questions, please contact your primary care physician. Chief Complaint and Reason For Visit Chief Complaint Date of Onset RECTAL BLEEDING Function Status Unknown or Not Available. Plan of Care Unknown or Not Available. Referral/Transition of Care Unknown or Not Available.
--- OUTSIDE RECORDS SUMMARY | 2016-11-04 14:42 | XMS REPORT | Continuity of Care Document ---
Author Author [facility] Organization [facility] Address Unknown Phone Unavailable Support Name Relationship Address Phone JITENDRA WHYTE MD Caregiver [address] [facility] [place] [address] Unavailable MELISSA FARRIS "LASHA" Caregiver [address] [place] [address] Unavailable RADHA GAONA Next Of Kin [address] [place], [place] [address] Insurance Providers Guarantor Chris Gaona Address [address] [place] [address] C Email DENIED/NO TO PT [facility] Policy Number [id number] Subscriber's Name Chris Gaona Relationship 18 Self Group Number [id number] Payer Medicare Policy Number [id number] Subscriber's Name Chris Gaona Relationship 18 Self Advance Directives Directive Response Recorded Date/Time Ordered Resuscitation Status Full Code 06/07/16 8:21am Resuscitation Documents on File No 06/07/16 9:04am DPOA for Healthcare Only Yes 06/07/16 9:04am Living Will Yes 06/07/16 9:04am Problems Active Problems Medical Problem Onset Date [...] Cream 1 Applic Topically As Needed 12/30/14 Clobetasol Propionate/Emoll (Clobetasol 0.05% Cream) 60 Gm Cream.gm. 60 Gm Topical Daily 09/08/11 Cyanocobalamin (Vitamin B-12) 1,000 Mcg Tablet 500 [...] Date/Time Onset Date Status Reason for Hospitalization ULTRASOUND GUIDED PARACENTESIS 06/07/2016 1:27pm Not Applicable Not Applicable Hx Substance Use No 06/07/2016 9:10am Not Applicable Not Applicable Hx Alcohol Use No 06/07/2016 9:10am Not Applicable Not Applicable Has the pt used tobacco in the last 12 months No 06/07/2016 9:10am Not Applicable Not Applicable Query Response Start Date Stop Date Smoking Status Former smoker Hospital Discharge Instructions Instructions: Care Instructions: I was in the hospital because (patient own words): "take fluid off my tummy" Discharge Diet: RESUME PREVIOUS DIET Discharge Activity: -RESTART MEDS STOPPED FOR THIS PROCEDURE AT NEXT DAY. -MAY RETURN TO WORK THE NEXT DAY. MAY DRIVE STARTING NEXT DAY. MAY SHOWER/BATHE STARTING THE NEXT DAY. Follow Up Appointments: ALREADY SCHEDULED Pending Lab / Results: Follow up w/ provider Expected Signs/Symptoms: N/A Notify Physician If: ANY CONCERNS During Business Hours:: Please call the physician's office After Business Hours:: Please call [phone] and have the mixer operator tablets page the physician. Pain Management/Treatment: OTC MEDICATIONS NEEDED Pain Scale Utilized to Educate Patient: 0-10 Pain Scale Wound/Incision Care: N/A Condition at time of discharge: Good Plan of Care Discharge Date 06/07/16 1:43pm Instructions/Education Provided DI for Abdominal Paracentesis Abdominal Paracentesis Prescriptions See Medication Section Functional Status Query Response Date Recorded Mobility Status Ambulatory June 07, 2016 10:09am Assistive Devices None June 07, 2016 10:09am Activity Limitations None June 07, 2016 10:09am Feeding Ability Independent June 07, 2016 10:09am Toileting Ability Independent June 07, 2016 10:09am Grooming Ability Independent June 07, 2016 10:09am Dressing Ability Independent June 07, 2016 10:09am Driving Ability Independent June 07, 2016 10:09am Housework Ability Independent June 07, 2016 10:09am Meal Preparation Ability Independent June 07, 2016 10:09am Stair Climbing Ability Independent June 07, 2016 10:09am Ability to complete ADL's impeded by No change June 07, 2016 10:09am Cognitive/Perceptual Impairments None June 07, 2016 10:09am Visual Assistive Devices Glasses With patient June 07, 2016 10:09am Preferred Method of Learning Reading Listening June 07, 2016 10:09am Allergies, Adverse Reactions, Alerts Allergen Type Severity Reaction Status Last Updated Morphine Allergy Unknown HALLUCINATIONS Active 06/07/16 Immunizations Immunization Event Date Type Not Given Reason Dose Number Lot Number Professor Of Astronomy VIS Given Pneumococcal conjugate PCV 13 04/12/16 Administered 1 [id number] Pfizer Query Response on File Recorded Date/Time Hx Influenza Vaccination Y MARCH 2016 06/07/16 9:10am Hx Pneumococcal Vaccination Y MARCH 2016 06/07/16 9:10am Hx Influenza Vaccination Y MARCH 2016 06/07/16 9:10am Influenza Vaccine Hx MARCH 2016 06/07/16 1:07pm Vital Signs Acute Vital Signs Vital Response Date/Time Temperature (Fahrenheit) 96.0 deg F (96.8 - 99.1) 06/07/2016 12:00pm Temperature (Calculated Celsius) 35.00203 degrees C (36.0 - 37.3) 06/07/2016 12:00pm Temperature Source Oral 06/07/2016 12:00pm Pulse Rate (adult) 56 bpm (60 - 100) 06/07/2016 12:45pm Respiratory Rate 14 breaths/min (10 - 20) 06/07/2016 12:45pm O2 Sat by Pulse Oximetry 97 % (90 - 100) 06/07/2016 12:45pm Oxygen Delivery Method Room Air 06/07/2016 12:45pm Oxygen Delivery Method Room Air 06/07/2016 9:45am Blood Pressure 110/64 mm Hg 06/07/2016 12:45pm Blood Pressure Source Automatic Cuff 06/07/2016 12:45pm Height (Feet) 6 feet 06/07/2016 9:04am Height (Inches) 0.00 inches 06/07/2016 9:04am Weight (Kilograms) 80.000 kg 06/07/2016 9:45am Body Mass Index (BMI) 23.9 06/07/2016 9:04am Results Laboratory Results Test Name Result Units [...] 1:00pm 05/05/2016 1:59pm Albumin, Fluid performed at [facility], [address] [place] [address] Director Of Billing Kong Andre DO Body Fluid Total Protein <3.0 g/dL 05/05/2016 1:00pm 05/06/2016 12: 37am Protein, Fluid performed at [facility], [place] [address] Director Of Billing Kong Andre DO Platelet Count 102 T/MM3 L 130-400 06/07/2016 9:25am 06/07/2016 9:32am Prothromb Time International Ratio 1.06 H 0.76-1.04 06/07/2016 9:25am 06/07/2016 9:37am THERAPUTIC RANGE=2.00-3.00 FOR ANTI-THROMBOSIS THERAPUTIC RANGE=2.50-3.50 FOR IMPLANTED VALVE Microbiology Results Procedure Source Organism/Result Collection Date/Time Result Date/Time Result Status Body Fluid Culture Paracentesis Fluid NO GROWTH AFTER 5 DAYS 05/05/2016 1: 00pm 05/10/2016 9:05am Final Name: JIMENEZCHRIS Calvin Unit #: [id number] : 1935 Sex: M Admit Date: Loc / Svc: SRG Discharge Date: DIAGNOSTIC IMAGING REPORT Report #: [id number] [facility] JOE Rasmussen Indication:ITS.REASON: K76.9 LIVER DISEASE; R18.8 OTHER ASCITES; K74.60 CIRRHOSIS OF LIVER. Procedure:US GUIDE PARACENTESIS, INITIAL PARACENTESIS: The procedure [...] is done from a right lateral approach. 5400 ml of straw colored fluid was taken off without complication. Following this the patient left the radiology department in good condition. Impression: Successful paracentesis with 5400 mL of fluid removed. Jitendra Chappell RPA/ROBINSON performed this under my personal supervision. . Procedures Procedure Status Date Provider(s) ABD PARACENTESIS W/IMAGING Completed 04/12/16 JITENDRA WHYTE MD ECHO GUIDE FOR BIOPSY Completed 04/12/16 AUTOMATED PLATELET COUNT Completed 04/12/16 PROTHROMBIN TIME Completed 04/12/16 PPSV23 VACC 2 YRS+ SUBQ/IM Completed 04/12/16 [id number] OF PNEUMOCOCCAL VACCINE Completed 04/12/16 ROUTINE VENIPUNCTURE Completed 05/05/16 ABD PARACENTESIS W/IMAGING Completed 05/05/16 JITENDRA WHYTE MD ASSAY OF URINE ALBUMIN Completed 05/05/16 ASSAY OF PROTEIN OTHER Completed 05/05/16 AUTOMATED PLATELET COUNT Completed 05/05/16 PROTHROMBIN TIME Completed 05/05/16 SPECIMEN INFECT AGNT CONCNTJ Completed 05/05/16 CULTURE OTHR SPECIMN AEROBIC Completed 05/05/16 MYCOBACTERIA CULTURE Completed 05/05/16 CYTOPATH CELL ENHANCE TECH Completed 05/05/16 TISSUE EXAM BY PATHOLOGIST Completed 05/05/16 BODY FLUID CELL COUNT Completed 05/05/16 Encounters Encounter Location Arrival/Admit Date [facility]/07[facility] 1:43pm [facility] 10:38am 05/05/16 2:58pm [facility] 10:55am 04/12/16 4:05pm JITENDRA WHYTE MD
--- OUTSIDE RECORDS SUMMARY | 2016-11-04 14:42 | XMS REPORT | Continuity of Care Document ---
Author Author [facility] Organization [facility] Address Unknown Phone Unavailable Support Name Relationship Address Phone JITENDRA WHYTE MD Caregiver [address] [facility] [place] [address] Unavailable MELISSA FARRIS "LASHA" Caregiver [address] [place] [address] Unavailable RADHA GAONA Next Of Kin [address] [place], [place] [address] Insurance Providers Guarantor Chris Gaona Address [address] [place] [address] Email DENIED 09-30-16 [facility] Policy [facility] [id number] Subscriber's Name Chris Gaona Relationship 18 Self Group Number [id number] Payer Medicare Policy Number [id number] Subscriber's Name Chris Gaona Relationship 18 Self Advance Directives Directive Response Recorded Date/Time Ordered Resuscitation Status Full Code 09/30/16 8:06am Resuscitation Documents on File Yes 09/30/16 7:57am DPOA for Healthcare Only Yes 09/30/16 7:57am Living Will Yes 09/30/16 7:57am Problems Active Problems Medical Problem Onset Date [...] Date/Time Onset Date Status Reason for Hospitalization Ultrasound Guided Paracentesis 09/30/2016 1:49pm Not Applicable Not Applicable Chewing Tobacco Status No 09/30/2016 8:00am Not Applicable Not Applicable Hx Substance Use No 09/30/2016 8:00am Not Applicable Not Applicable Hx Alcohol Use No 09/30/2016 8:00am Not Applicable Not Applicable Has the pt used tobacco in the last 12 months No 09/30/2016 8:00am Not Applicable Not Applicable Query Response Start Date Stop Date Smoking Status Former smoker Hospital Discharge Instructions Instructions: Care Instructions: I was in the hospital because (patient own words): "TO GET MY STOMACH DRAINED" Discharge Diet: As tolerated to pre-admission diet Discharge Activity: As tolerated Follow Up Appointments: Follow up with provider as needed. Pending Lab / Results: No Pending Lab Patient Instructions: May return to work tomorrow. May drive starting tomorrow. Restart medications that were stopped for this procedure tomorrow. Expected Signs/Symptoms: See dismissal instructions Notify Physician If: See dismissal instructions During Business Hours:: Please call the physician's office at After Business Hours:: Please call [phone] and have the contact acid plant operator page the physician. Pain Management/Treatment: See dismissal instructions. Pain Scale Utilized to Educate Patient: 0-10 Pain Scale Wound/Incision Care: May shower/bathe starting the next day. Condition at time of discharge: Good Plan of Care Discharge Date 09/30/16 2:45pm Instructions/Education Provided Abdominal Paracentesis (DC) Prescriptions See Medication Section Functional Status Query Response Date Recorded Mobility Status Ambulatory September 30, 2016 9:45am Assistive Devices None September 30, 2016 9:45am Activity Limitations None September 30, 2016 9:45am Feeding Ability Independent September 30, 2016 9:45am Toileting Ability Independent September 30, 2016 9:45am Grooming Ability Independent September 30, 2016 9:45am Dressing Ability Independent September 30, 2016 9:45am Driving Ability Independent September 30, 2016 9:45am Housework Ability Independent September 30, 2016 9:45am Meal Preparation Ability Independent September 30, 2016 9:45am Stair Climbing Ability Independent September 30, 2016 9:45am Ability to complete ADL's impeded by No change September 30, 2016 7:57am Visual Assistive Devices Glasses September 30, 2016 9:45am Preferred Method of Learning Hands on September 30, 2016 9:45am Allergies, Adverse Reactions, Alerts Allergen Type Severity Reaction Status Last Updated Penicillin Adverse Reaction Unknown Active 09/23/16 Morphine Allergy Unknown HALLUCINATIONS Active 09/16/16 Erythromycin base Allergy Unknown Active 09/23/16 Atorvastatin Allergy Unknown Active 09/23/16 Immunizations Query Response on File Recorded Date/Time Hx Influenza Vaccination Y MARCH 2016 09/30/16 8:00am Hx Pneumococcal Vaccination Y MARCH 2016 09/30/16 8:00am Hx Influenza Vaccination Y MARCH 2016 09/30/16 8:00am Influenza Vaccine Hx MAR 2016 09/30/16 8:35am Vital Signs Acute Vital Signs Vital Response Date/Time Temperature (Fahrenheit) 96.0 deg F (96.8 - 99.1) 09/30/2016 11:30am Temperature (Calculated Celsius) 35.52813 degrees C (36.0 - 37.3) 09/30/2016 11:30am Temperature Source Oral 09/30/2016 11:30am Pulse Rate (adult) 62 bpm (60 - 100) 09/30/2016 2:15pm Respiratory Rate 18 breaths/min (10 - 20) 09/30/2016 2:15pm O2 Sat by Pulse Oximetry 100 % (90 - 100) 09/30/2016 2:15pm Oxygen Delivery Method Room Air 09/30/2016 2:15pm Oxygen Delivery Method Room Air 09/30/2016 11:28am Blood Pressure 111/56 mm Hg 09/30/2016 2:38pm Blood Pressure Source Automatic Cuff 09/30/2016 2:38pm Height (Feet) 5 feet 09/30/2016 7:57am Height (Inches) 10.00 inches 09/30/2016 7:57am Weight (Kilograms) 74.100 kg 09/30/2016 11:30am Body Mass Index (BMI) 25.2 09/30/2016 7:57am Results Laboratory Results Test Name Result Units Flags Reference Collection Date/Time Result Date/ Time Comments Platelet Count 128 T/MM3 L 130-400 09/30/2016 8:26am 09/30/2016 8:32am Prothromb Time International Ratio 1.12 H 0.76-1.04 09/30/2016 8:26am 09/30/2016 8:37am THERAPUTIC RANGE=2.00-3.00 FOR ANTI-THROMBOSIS THERAPUTIC RANGE=2.50-3.50 FOR IMPLANTED VALVE Name: CHRIS GAONA Unit #: [id number] : 1935 Sex: M Admit Date: Loc / Svc: SRG Discharge Date: DIAGNOSTIC IMAGING REPORT Report #: [id number] [facility] Grady JOE Indication:ITS.REASON: ASCITES, CIRRHOSIS Procedure:US GUIDE PARACENTESIS, SUBSEQ PARACENTESIS: The procedure [...] is done from a right lateral approach. 6700 ml of straw colored fluid was taken off without complication. Following this, the patient was taken back to his recovery room to finish his albumin infusion. Impression: Successful paracentesis with 6700 mL of fluid removed. Jitendra Chappell RPA/ROBINSON performed this under my personal supervision. . Procedures Procedure Status Date Provider(s) Routine venipuncture Completed 07/13/16 Abd paracentesis w/imaging Completed 07/13/16 JITENDRA WHYTE MD Automated platelet count Completed 07/13/16 Prothrombin time Completed 07/13/16 126994"INFUSION, ALBUMIN (HUMAN), 25%, 50 ML" Completed 07/13/16 Abd paracentesis w/imaging Completed 08/05/16 JITENDRA WHYTE MD Automated platelet count Completed 08/05/16 Prothrombin time Completed 08/05/16 780373"EQUAL TO 48 SQ. IN., WITHOUT ADHESIVE BORDER, EACH DR Completed 003"INFUSION, ALBUMIN (HUMAN), 25%, 50 ML" Completed 08/05/16227054"INFUSION, ALBUMIN (HUMAN), 25%, 50 ML" Completed 08/05/16 Abd paracentesis w/imaging Completed 08/17/16 JITENDRA WHYTE MD Automated platelet count Completed 08/17/16 Prothrombin time Completed 08/17/16540709"INFUSION, ALBUMIN (HUMAN), 25%, 50 ML" Completed 08/17/16776031"INFUSION, ALBUMIN (HUMAN), 25%, 50 ML" Completed 08/17/16873298"INFUSION, ALBUMIN (HUMAN), 25%, 50 ML" Completed 08/17/16258258"INFUSION, ALBUMIN (HUMAN), 25%, 50 ML" Completed 08/17/16 Routine venipuncture Completed 09/01/16 Abd paracentesis w/imaging Completed 09/01/16 BJ FAIRBANKS MD Automated platelet count Completed 09/01/16 Prothrombin time Completed 09/01/16488834"INFUSION, NORMAL SALINE SOLUTION , 250 CC" Completed 09/01/16 449697"INFUSION, ALBUMIN (HUMAN), 25%, 50 ML" Completed 09/01/16 [id number]"INFUSION, ALBUMIN (HUMAN), 25%, 50 ML" Completed 09/01/16202431"INFUSION, ALBUMIN (HUMAN), 25%, 50 ML" Completed 09/01/16463087"INFUSION, ALBUMIN (HUMAN), 25%, 50 ML" Completed 09/01/16 Routine venipuncture Completed 09/08/16 Abd paracentesis w/imaging Completed 09/08/16 JITENDRA WHYTE MD Automated platelet count Completed 09/08/16 Prothrombin time Completed 09/08/16 [id number]"INFUSION, NORMAL SALINE SOLUTION , 250 CC" Completed 09/08/16 [id number]"INFUSION, ALBUMIN (HUMAN), 25%, 50 ML" Completed 09/08/16 Abd paracentesis w/imaging Completed 09/16/16 JITENDRA WHYTE MD [id number]"INFUSION, NORMAL SALINE SOLUTION , 250 CC" Completed 09/16/16748383"INFUSION, ALBUMIN (HUMAN), 25%, 50 ML" Completed 09/16/16 Encounters Encounter Location Arrival/Admit Date Discharge/Depart Date Attending Provider [facility] 09/30/16 7:43am 09/30/16 2:45pm JITENDRA WHYTE MD [facility] 09/23/16 10:35am 09/23/16 4:21pm JITENDRA WHYTE MD [facility] 09/16/16 10:58am 09/16/16 4:30pm JITENDRA WHYTE MD [facility] 09/08/16 12:40pm 09/08/16 6:15pm JITENDRA WHYTE MD [facility] 09/01/16 12:12pm 09/01/16 6:15pm BJ FAIRBANKS MD [facility] 08/17/16 11:57am 08/17/16 7:10pm JITENDRA WHYTE MD [facility] 08/05/16 11:13am 08/05/16 7:30pm JITENDRA WHYTE MD [facility] 07/13/16 8:44am 07/13/16 3:25pm JITENDRA WHYTE MD
--- OUTSIDE RECORDS SUMMARY | 2016-11-04 14:43 | XMS REPORT | Continuity of Care Document ---
Author Author [facility] Organization [facility] Address Unknown Phone Unavailable Support Name Relationship Address Phone HOUSE, KEVIN Arciniega MD Caregiver [address] [place] [address] Unavailable MELISSA FARRIS "LASHA" Caregiver [address] [place] [address] Unavailable RADHA GAONA Next Of Kin [address] [place], [place] [address] Insurance Providers Guarantor Chris Gaona Address [address] [place] [address] Email DENIED [facility] Number [id number] Subscriber's Name Chris Gaona Relationship 18 Self Group Number [id number] Payer Medicare Policy Number [id number] Subscriber's Name Chris Gaona Relationship 18 Self Advance Directives Directive Response Recorded Date/Time Ordered Resuscitation Status Full Code, unverified 10/28/16 7:26am Resuscitation Documents on File Yes 10/28/16 11:17am DPOA for Healthcare Only Y RADHA JIMENEZ 10/28/16 11:17am Living Will Yes 10/28/16 11:17am Problems Active Problems Medical Problem Onset Date [...] Mg Tablet 324 Mg Oral Daily 09/08/11 Furosemide 40 Mg Tablet 1 Tab Oral [...] one time a day with breakfast. 12/30/14 Potassium 99 Mg Oral Daily 10/28/16 Spironolactone 50 Mg Tablet 50 Mg Oral [...] Onset Date Status Reason for Hospitalization CIRRHOSIS 10/28/2016 3:04pm Not Applicable Not Applicable Hx Substance Use No 10/27/2016 10:51am Not Applicable Not Applicable Hx Alcohol Use No 10/27/2016 10:51am Not Applicable Not Applicable Has the pt used tobacco in the last 12 months No 10/28/2016 11:24am Not Applicable Not Applicable Query Response Start Date Stop Date Smoking Status Former smoker Hospital Discharge Instructions Instructions: Care Instructions: I was in the hospital because (patient own words): TO GET FLUID PUMPED OFF MY STOMACH Condition at time of discharge: Fair Plan of Care Discharge Date 10/28/16 5:00pm Prescriptions See Medication Section Functional Status Query Response Date Recorded Mobility Status Ambulatory October 28, 2016 11:30am Assistive Devices None October 28, 2016 11:30am Activity Limitations None October 28, 2016 11:30am Feeding Ability Independent October 28, 2016 11:30am Toileting Ability Independent October 28, 2016 11:30am Grooming Ability Independent October 28, 2016 11:30am Dressing Ability Independent October 28, 2016 11:30am Driving Ability Assist October 28, 2016 11:30am Housework Ability Independent October 28, 2016 11:30am Meal Preparation Ability Independent October 28, 2016 11:30am Ability to complete ADL's impeded by No change October 28, 2016 11:30am Cognitive/Perceptual Impairments Impaired vision October 28, 2016 11:30am Visual Assistive Devices Glasses With patient October 28, 2016 11:30am Preferred Method of Learning Demonstration Listening Hands on October 28, 2016 11:30am Allergies, Adverse Reactions, Alerts Allergen Type Severity Reaction Status Last Updated Penicillin Adverse Reaction Unknown Active 10/28/16 Morphine Allergy Unknown HALLUCINATIONS Active 10/28/16 Erythromycin base Allergy Unknown Active 10/28/16 Atorvastatin Allergy Unknown Active 10/28/16 Immunizations Query Response on File Recorded Date/Time Hx Influenza Vaccination Y MARCH 2016 10/28/16 11:24am Hx Pneumococcal Vaccination Y MARCH 2016 10/28/16 11:24am Hx Influenza Vaccination Y MARCH 2016 10/28/16 11:24am Influenza Vaccine Hx 03/201610/21/16 12:35pm Vital Signs Acute Vital Signs Vital Response Date/Time Temperature (Fahrenheit) 97.5 deg F (96.8 - 99.1) 10/28/2016 2:10pm Temperature (Calculated Celsius) 36.30171 degrees C (36.0 - 37.3) 10/28/2016 2:10pm Temperature Source Oral 09/30/2016 11:30am Pulse Rate (adult) 56 bpm (60 - 100) 10/28/2016 4:30pm Respiratory Rate 16 breaths/min (10 - 20) 10/28/2016 2:10pm O2 Sat by Pulse Oximetry 99 % (90 - 100) 10/28/2016 4:30pm Oxygen Delivery Method Room Air 10/28/2016 1:29pm Oxygen Delivery Method Room Air 10/28/2016 4:30pm Blood Pressure 102/58 mm Hg 10/28/2016 4:30pm Blood Pressure Source Automatic Cuff 10/28/2016 4:30pm Height (Feet) 5 feet 10/28/2016 11:15am Height (Inches) 10.00 inches 10/28/2016 11:15am Weight (Kilograms) 73.400 kg 10/28/2016 2:10pm Body Mass Index (BMI) 24.7 10/28/2016 11:15am Results Laboratory Results Test Name Result Units Flags Reference Collection Date/Time Result Date/ Time Comments Platelet Count 128 T/MM3 L 130-400 09/30/2016 8:26am 09/30/2016 8:32am Prothromb Time International Ratio 1.12 H 0.76-1.04 09/30/2016 8:26am 09/30/2016 8:37am THERAPUTIC RANGE=2.00-3.00 FOR ANTI-THROMBOSIS THERAPUTIC RANGE=2.50-3.50 FOR IMPLANTED VALVE Name: CHRIS GAONA Unit #: [id number] : 1935 Sex: M Admit Date: Loc / Svc: SRG Discharge Date: DIAGNOSTIC IMAGING REPORT Report #: [id number] [facility] JOE Rasmussen Indication:ITS.REASON: ASCITES Procedure:US GUIDE PARACENTESIS, SUBSEQ PARACENTESIS: The procedure [...] albumin infusion. Impression: Successful paracentesis performed with 5400 mL of fluid removed. Jitendra Chappell RPA/ROBINSON performed this under my personal supervision. . Procedures Procedure Status Date Provider(s) Abd paracentesis w/imaging Completed 08/05/16 JITENDRA GORE MD Automated platelet count Completed 08/05/16 Prothrombin time Completed 08/05/16 406103"EQUAL TO 48 SQ. IN., WITHOUT ADHESIVE BORDER, EACH DR Completed 192281"INFUSION, ALBUMIN (HUMAN), 25%, 50 ML" Completed 08/05/16 647993"INFUSION, ALBUMIN (HUMAN), 25%, 50 ML" Completed 08/05/16 Abd paracentesis w/imaging Completed 08/17/16 JITENDRA GORE MD Automated platelet count Completed 08/17/16 Prothrombin time Completed 08/17/16 988388"INFUSION, ALBUMIN (HUMAN), 25%, 50 ML" Completed 08/17/16 077015"INFUSION, ALBUMIN (HUMAN), 25%, 50 ML" Completed 08/17/16 367036"INFUSION, ALBUMIN (HUMAN), 25%, 50 ML" Completed 08/17/16 046905"INFUSION, ALBUMIN (HUMAN), 25%, 50 ML" Completed 08/17/16 Routine venipuncture Completed 09/01/16 Abd paracentesis w/imaging Completed 09/01/16 KEVIN FAIRBANKS MD Automated platelet count Completed 09/01/16 Prothrombin time Completed 09/01/16 946379"INFUSION, NORMAL SALINE SOLUTION , 250 CC" Completed 09/01/16408890"INFUSION, ALBUMIN (HUMAN), 25%, 50 ML" Completed 09/01/16267269"INFUSION, ALBUMIN (HUMAN), 25%, 50 ML" Completed 09/01/16810834"INFUSION, ALBUMIN (HUMAN), 25%, 50 ML" Completed 09/01/16011010"INFUSION, ALBUMIN (HUMAN), 25%, 50 ML" Completed 09/01/16 Routine venipuncture Completed 09/08/16 Abd paracentesis w/imaging Completed 09/08/16 JITENDRA GORE MD Automated platelet count Completed 09/08/16 Prothrombin time Completed 09/08/16055613"INFUSION, NORMAL SALINE SOLUTION , 250 CC" Completed 09/08/16931698"INFUSION, ALBUMIN (HUMAN), 25%, 50 ML" Completed 09/08/16 Abd paracentesis w/imaging Completed 09/16/16 JITENDRA GORE MD [id number]"INFUSION, NORMAL SALINE SOLUTION , 250 CC" Completed 09/16/16343585"INFUSION, ALBUMIN (HUMAN), 25%, 50 ML" Completed 09/16/16 Abd paracentesis w/imaging Completed 09/23/16 JITENDRA GORE MD 307517"INFUSION, NORMAL SALINE SOLUTION , 250 CC" Completed 09/23/16711929"INFUSION, ALBUMIN (HUMAN), 25%, 50 ML" Completed 09/23/16 267609"INFUSION, ALBUMIN (HUMAN), 25%, 50 ML" Completed 09/23/16527145"INFUSION, ALBUMIN (HUMAN), 25%, 50 ML" Completed 09/23/16 Routine venipuncture Completed 09/30/16 Abd paracentesis w/imaging Completed 09/30/16 JITENDRA GORE MD Automated platelet count Completed 09/30/16 Prothrombin time Completed 09/30/16167488"INFUSION, NORMAL SALINE SOLUTION , 250 CC" Completed 09/30/16068117"INFUSION, ALBUMIN (HUMAN), 25%, 50 ML" Completed 09/30/16 043221"INFUSION, ALBUMIN (HUMAN), 25%, 50 ML" Completed 09/30/16 Abd paracentesis w/imaging Completed 10/07/16 JITENDRA GORE MD [id number]"INFUSION, NORMAL SALINE SOLUTION , 250 CC" Completed 10/07/16597318"INFUSION, ALBUMIN (HUMAN), 25%, 50 ML" Completed 10/07/16"INFUSION, ALBUMIN (HUMAN), 25%, 50 ML" Completed 10/07/16"INFUSION, ALBUMIN (HUMAN), 25%, 50 ML" Completed 10/07/16"INFUSION, NORMAL SALINE SOLUTION , 250 CC" Completed 10/14/16"INFUSION, ALBUMIN (HUMAN), 25%, 50 ML" Completed 10/14/16 Encounters Encounter Location Arrival/Admit Date Discharge/Depart Date Attending Provider [facility] 10/28/16 10:58am 10/28/16 5:00pm KEVIN FAIRBANKS MD [facility] 10/21/16 10:49am 10/21/16 3:40pm JITENDRA GORE MD [facility] 10/14/16 10:51am 10/14/16 5:45pm JITENDRA GORE MD [facility] 10/07/16 8:23am 10/07/16 3:02pm JITENDRA GORE MD [facility] 09/30/16 7:43am 09/30/16 2:45pm JITENDRA GORE MD [facility] 09/23/16 10:35am 09/23/16 4:21pm GORE JITENDRA MD [facility] 09/16/16 10:58am 09/16/16 4:30pm GORE JITENDRA MD [facility] 09/08/16 12:40pm 09/08/16 6:15pm JITENDRA GORE MD [facility] 09/01/16 12:12pm 09/01/16 6:15pm KEVIN FAIRBANKS MD [facility] 08/17/16 11:57am 08/17/16 7:10pm JITENDRA GORE MD [facility] 08/05/16 11:13am 08/05/16 7:30pm JITENDRA GORE MD
--- OUTSIDE RECORDS SUMMARY | 2016-11-04 14:43 | XMS REPORT | CCD ---
Author Author GIBRAN GARCIA Organization Unknown Address [address] [place], [place] [id number] Phone 0 Care Team Providers Care Dolly Operator Name Role Phone LASHA FARRIS Attending Physician [phone] Vital Signs Unknown or Not Available. Allergies Allergy Code Allergy Type Reaction Status No Known Allergies 0 No known allergies Active Procedures Unknown or Not Available. History of Immunizations Immunization Code Date influenza, whole 16 03/19/2015 pneumococcal polysaccharide PPV23 33 09/1998 tetanus toxoid, adsorbed 35 06/22/2016 Problems Unknown or Not Available. Results CBC W/ DIFF - Collect Date/Time: 08/07/2016 15:20 Test Name Code Test Result Test Units Test Ref Range WBC 3.5 x10^3 L=4.8 H=10.8 RBC 3.27 x10^6 L=4.70 H=6.10 HEMOGLOBIN 9.9 g/dL L=14.0 H=18.0 HEMATOCRIT 30.1 % L=42.0 H=52.0 MCV 92 fL L=80 H=100 MCH 30.4 pg L=27.0 H=33.0 MCHC 33.0 g/dL L=33.0 H=37.0 RDW 15.3 % L=11.5 H=14.5 PLATELETS 153 x10^3 L=150 H=450 MPV 6.0 fL L=7.8 H=11.0 NEUTROPHILS 59.7 % L=40.0 H=80.0 LYMPHOCYTES 26.6 % L=20.0 H=45.0 MONOCYTES 12.1 % L=0.0 H=10.0 EOSINOPHILS 1.1 % L=0.0 H=5.0 BASOPHILS 0.5 % L=0.0 H=2.0 REFLEX MAN DIFF NO N /A SED RATE AUTO - Collect Date/Time: 08/07/2016 15:20 Test Name Code Test Result Test Units Test Ref Range SED RATE 18 mm/HR L=0 H=10 Active Medications Unknown or Not Available. Medications Administered During Visit Unknown or Not Available. Encounters Unknown or Not Available. Social History Smoking Status Code Start Date End Date Never smoker [id number] Patient Decision Aids Unknown or Not Available. Discharge Instructions You were admitted to [facility] on 08/07/2016 14:34 You had the following tests done: CBC W / DIFF SED RATE AUTO You were discharged from [facility] on 08/07/2016 14:34 Should you have any questions prior to discharge, please contact a member of your healthcare team. If you have left the hospital and have any questions, please contact your primary care physician. Chief Complaint and Reason For Visit Chief Complaint Date of Onset PAIN IN LEG Function Status Unknown or Not Available. Plan of Care Unknown or Not Available. Referral/Transition of Care Unknown or Not Available.
--- OUTSIDE RECORDS SUMMARY | 2016-11-04 14:43 | XMS REPORT | Continuity of Care Document ---
Author Author [facility] Organization [facility] Address Unknown Phone Unavailable Support Name Relationship Address Phone JITENDRA WHYTE MD Caregiver [address] [facility] [place] [address] Unavailable MELISSA FARRIS "LASHA" Caregiver [address] [place] [address] Unavailable RADHA GAONA Next Of Kin [address], [place] [address] Insurance Providers Guarantor Chris Gaona Address [address] [place] [address] C Email DENIED 16 [facility] Policy Number [id number] Subscriber's Name Chris Gaona Relationship 18 Self Group Number [id number] Payer Medicare Policy Number [id number] Subscriber's Name Chris Gaona Relationship 18 Self Advance Directives Directive Response Recorded Date/Time Ordered Resuscitation Status Full Code 08/17/16 10:26am Resuscitation Documents on File Yes 08/17/16 12:22pm DPOA for Healthcare Only Yes 08/17/16 12:22pm Living Will Yes 08/17/16 12:22pm Problems Active Problems Medical Problem Onset Date [...] Date/Time Onset Date Status Reason for Hospitalization ASCITES 08/17/2016 6:01pm Not Applicable Not Applicable Hx Substance Use No 08/05/2016 11:43am Not Applicable Not Applicable Hx Alcohol Use No 08/05/2016 11:43am Not Applicable Not Applicable Has the pt used tobacco in the last 12 months No 08/17/2016 12:25pm Not Applicable Not Applicable Query Response Start Date Stop Date Smoking Status Former smoker Hospital Discharge Instructions Instructions: Care Instructions: I was in the hospital because (patient own words): TO GET MY STOMACH PUMPED Discharge Diet: EAT LOW SALT FOODS Discharge Activity: MAY RETURN TO WORK THE NEXT DAY. 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 MAY SHOWER/BATHE THE NEXT DAY Follow Up Appointments: PER DOCTOR Patient Instructions: DO NOT DRINK ALCOHOL Expected Signs/Symptoms: SEE PARACENTESIS NOTES Notify Physician If: SEE PARACENTESIS NOTES Pain Management/Treatment: PER USUAL HOME PAIN MEDICATION ROUTINE Pain Scale Utilized to Educate Patient: 0-10 Pain Scale Plan of Care Discharge Date 08/17/16 7:10pm Instructions/Education Provided Abdominal Paracentesis (DC) Prescriptions See Medication Section Functional Status Query Response Date Recorded Mobility Status Ambulatory August 17, 2016 12:15pm Assistive Devices None August 17, 2016 12:15pm Activity Limitations None August 17, 2016 12:15pm Feeding Ability Independent August 17, 2016 12:15pm Toileting Ability Independent August 17, 2016 12:15pm Grooming Ability Independent August 17, 2016 12:15pm Dressing Ability Independent August 17, 2016 12:15pm Driving Ability Dependent August 17, 2016 12:15pm Housework Ability Independent August 17, 2016 12:15pm Meal Preparation Ability Independent August 17, 2016 12:15pm Stair Climbing Ability Independent August 17, 2016 12:15pm Ability to complete ADL's impeded by No change August 17, 2016 12:22pm Cognitive/Perceptual Impairments Impaired vision August 17, 2016 12:15pm Visual Assistive Devices Glasses With patient August 17, 2016 12:15pm Preferred Method of Learning Demonstration Listening Hands on August 17, 2016 12:15pm Allergies, Adverse Reactions, Alerts Allergen Type Severity Reaction Status Last Updated Morphine Allergy Unknown HALLUCINATIONS Active 08/17/16 Immunizations Query Response on File Recorded Date/Time Hx Influenza Vaccination Y MARCH 2016 08/17/16 12:25pm Hx Pneumococcal Vaccination Y MARCH 2016 08/17/16 12:25pm Hx Influenza Vaccination Y MARCH 2016 08/17/16 12:25pm Influenza Vaccine Hx FEB 2016 08/17/16 4:39pm Vital Signs Acute Vital Signs Vital Response Date/Time Temperature (Fahrenheit) 95.4 deg F (96.8 - 99.1) 08/17/2016 4:20pm Temperature (Calculated Celsius) 35.17847 degrees C (36.0 - 37.3) 08/17/2016 4:20pm Temperature Source Oral 08/17/2016 4:20pm Pulse Rate (adult) 67 bpm (60 - 100) 08/17/2016 7:05pm Respiratory Rate 16 breaths/min (10 - 20) 08/17/2016 4:20pm O2 Sat by Pulse Oximetry 100 % (90 - 100) 08/17/2016 7:05pm Oxygen Delivery Method Room Air 08/17/2016 7:05pm Oxygen Delivery Method Room Air 08/17/2016 4:06pm Blood Pressure 103/59 mm Hg 08/17/2016 7:05pm Blood Pressure Source Automatic Cuff 08/17/2016 7:05pm Height (Feet) 5 feet 08/17/2016 12:21pm Height (Inches) 10.00 inches 08/17/2016 12:21pm Weight (Kilograms) 80.600 kg 08/17/2016 4:43pm Body Mass Index (BMI) 27.6 08/17/2016 12:21pm Results Laboratory Results Test Name Result Units Flags Reference Collection Date/Time Result Date/ Time Comments Platelet Count 136 T/MM3 130-400 08/17/2016 12:16pm 08/17/2016 12:23pm Prothromb Time International Ratio 1.11 H 0.76-1.04 08/17/2016 12:16pm 08/17/2016 12:28pm THERAPUTIC RANGE=2.00-3.00 FOR ANTI-THROMBOSIS THERAPUTIC RANGE=2.50-3.50 FOR IMPLANTED VALVE Name: CHRIS GAONA Unit #: [id number] : 1935 Sex: M Admit Date: Loc / Svc: SRG Discharge Date: DIAGNOSTIC IMAGING REPORT Report #: [id number] [facility] JOE Rasmussen Indication:ITS.REASON: R18.8; K74.60 Procedure:US GUIDE PARACENTESIS, SUBSEQ PARACENTESIS: The procedure [...] is done from a right lateral approach. 7100 ml of straw colored fluid was taken off without complication. Following this, the patient was taken back to his recovery room to finish his albumin infusion. Impression: Successful paracentesis performed with 7100 mL of fluid removed. Jitendra Chappell RPA/ROBINSON performed this under my personal supervision. . Procedures Procedure Status Date Provider(s) Abd paracentesis w/imaging Completed 06/07/16 JITENDRA WHYTE MD Echo guide for biopsy Completed 06/07/16 Automated platelet count Completed 06/07/16 Prothrombin time Completed 06/07/16 Routine venipuncture Completed 07/13/16 Abd paracentesis w/imaging Completed 07/13/16 JITENDRA WHYTE MD Automated platelet count Completed 07/13/16 Prothrombin time Completed 07/13/16117394"INFUSION, ALBUMIN (HUMAN), 25%, 50 ML" Completed 07/13/16 Abd paracentesis w/imaging Completed 08/05/16 JITENDRA WHYTE MD Automated platelet count Completed 08/05/16 Prothrombin time Completed 08/05/16 [id number]"EQUAL TO 48 SQ. IN., WITHOUT ADHESIVE BORDER, EACH DR Completed "INFUSION, ALBUMIN (HUMAN), 25%, 50 ML" Completed 08/05/16 [id number]"INFUSION, ALBUMIN (HUMAN), 25%, 50 ML" Completed 08/05/16 Encounters Encounter Location Arrival/Admit Date Discharge/Depart Date Attending Provider [facility] 08/17/16 11:57am 08/17/16 7:10pm JITENDRA WHYTE MD [facility] 08/05/16 11:13am 08/05/16 7:30pm JITENDRA WHYTE MD [facility] 07/13/16 8:44am 07/13/16 3:25pm JITENDRA WHYTE MD [facility] 06/07/16 8:48am 06/07/16 1:43pm JITENDRA WHYTE MD
--- OUTSIDE RECORDS SUMMARY | 2016-11-04 14:43 | XMS REPORT | CCD ---
Author Author GIBRAN GARCIA Organization Unknown Address [address], [place] [id number] Phone 0 Care Team Providers Care Manufacturing Specialist Name Role Phone BRAD PULLIAM Attending Physician [phone] BRAD PULLIAM Primary Surgeon [phone] Vital Signs Vital Sign Value Unit Date/Time Recent/Initial? Weight Measured 213 lbs 05/15/2015 20:34 Initial VS Height 72 in 2014 20:34 Initial VS BMI (Body Mass Index) 28.89 kg/m^2 05/15/2015 20:34 Initial VS BSA (Body Surface Area) 2.22 m^2 05/15/2015 20:34 Initial VS Allergies Allergy Code Allergy Type Reaction Status No Known Allergies 0 No known allergies Active Procedures Unknown or Not Available. History of Immunizations Unknown or Not Available. Problems Unknown or Not Available. Results Unknown or Not Available. Active Medications Unknown or Not Available. Medications Administered During Visit Unknown or Not Available. Encounters Unknown or Not Available. Social History Smoking Status Code Start Date End Date Never smoker [id number] Patient Decision Aids Unknown or Not Available. Discharge Instructions You were admitted to [facility] on 05/15/2015. You were discharged from [facility] on 05/15/2015. Should you have any questions prior to discharge, please contact a member of your healthcare team. If you have left the hospital and have any questions, please contact your primary care physician. Chief Complaint and Reason For Visit Chief Complaint Date of Onset ABDOMINAL PAIN 05/15/2015 Function Status Unknown or Not Available. Plan of Care Unknown or Not Available. Referral/Transition of Care Unknown or Not Available.
--- OUTSIDE RECORDS SUMMARY | 2016-11-04 14:43 | XMS REPORT | Continuity of Care Document ---
Author Author [facility] Organization [facility] Address Unknown Phone Unavailable Support Name Relationship Address Phone JITENDRA WHYTE MD Caregiver [address] [facility] [place] [address] Unavailable MELISSA FARRIS "LASHA" Caregiver [address] [place] [address] Unavailable RADHA GAONA Next Of Kin [address] [place], [place] [address] Insurance Providers Guarantor Chris Gaona Address [address] [place] [address] C Email DENIED/NO TO PT [facility] Policy Number [id number] Subscriber's Name Chris Gaona Relationship 18 Self Group [facility] [id number] [facility] Policy Number [id number] Subscriber's Name Chris Gaona Relationship 18 Self Advance Directives Directive Response Recorded Date/Time Ordered Resuscitation Status Full Code 05/05/16 8:41am Resuscitation Documents on File Y PT STATES DNR ON FILE 05/05/16 11:03am DPOA for Healthcare Only Y HAVE COPY ON FILE 05/05/16 11:03am Living Will No 05/05/16 11:03am Problems Active Problems Medical Problem Onset [...] 09/08/11 Cyanocobalamin (Vitamin B-12) 1,000 Mcg Tablet 1,000 [...] Status Reason for Hospitalization ULTRASOUND GUIDED PARACENTESIS 05/05/2016 2:15pm Not Applicable Not Applicable Chewing Tobacco Status No 05/04/2016 2:29pm Not Applicable Not Applicable Hx Substance Use No 05/04/2016 2:29pm Not Applicable Not Applicable Hx Alcohol Use No 05/04/2016 2:29pm Not Applicable Not Applicable Has the pt used tobacco in the last 12 months No 05/05/2016 11:09am Not Applicable Not Applicable Query Response Start Date Stop Date Smoking Status Former smoker Hospital Discharge Instructions Instructions: Care Instructions: I was in the hospital because (patient own words): GONNA TEST ABDOMINAL FLUID Discharge Diet: TOLERATED Discharge Activity: ACTIVITY TOLERATED Follow Up Appointments: NEEDED WITH PRIMARY CARE PROVIDER Pending Lab / Results: No Pending Lab Expected Signs/Symptoms: N/A Notify Physician If: FOR QUESTIONS RELATED TO CARE During Business Hours:: Please call the physician's office at After Business Hours:: Please call [phone] and have the ad terminal makeup operator page the physician. Pain Management/Treatment: CALL IF PAIN IS NOT CONTROLLED Wound/Incision Care: M/A Condition at time of discharge: Good Plan of Care Discharge Date 05/05/16 2:58pm Prescriptions See Medication Section Functional Status Query Response Date Recorded Mobility Status Ambulatory May 05, 2016 10:50am Assistive Devices None May 05, 2016 10:50am Activity Limitations Weakness May 05, 2016 10:50am Feeding Ability Independent May 05, 2016 10:50am Toileting Ability Independent May 05, 2016 10:50am Grooming Ability Independent May 05, 2016 10:50am Dressing Ability Independent May 05, 2016 10:50am Driving Ability Dependent May 05, 2016 10:50am Housework Ability Independent May 05, 2016 10:50am Meal Preparation Ability Independent May 05, 2016 10:50am Stair Climbing Ability Independent May 05, 2016 10:50am Ability to complete ADL's impeded by No change May 05, 2016 11:03am Cognitive/Perceptual Impairments Impaired vision May 05, 2016 10:50am Visual Assistive Devices Glasses With patient May 05, 2016 10:50am Preferred Method of Learning Demonstration Listening Hands on May 05, 2016 10:50am Allergies, Adverse Reactions, Alerts Allergen Type Severity Reaction Status Last Updated No Known Drug Allergies Allergy Unknown Active 05/05/16 Immunizations Immunization Event Date Type Not Given Reason Dose Number Lot Number Probation Manager VIS Given Pneumococcal conjugate PCV 13 04/12/16 Administered 1 [id number] Pfizer Query Response on File Recorded Date/Time Hx Influenza Vaccination Y MARCH 2016 05/05/16 11:09am Hx Pneumococcal Vaccination Y MARCH 2016 05/05/16 11:09am Hx Influenza Vaccination Y MARCH 2016 05/05/16 11:09am Influenza Vaccine Hx MARCH 2016 04/12/16 11:25am Vital Signs Acute Vital Signs Vital Response Date/Time Temperature (Fahrenheit) 96.1 deg F (96.8 - 99.1) 05/05/2016 1:45pm Temperature (Calculated Celsius) 35.75119 degrees C (36.0 - 37.3) 05/05/2016 1:45pm Pulse Rate (adult) 53 bpm (60 - 100) 05/05/2016 2:45pm Respiratory Rate 16 breaths/min (10 - 20) 05/05/2016 2:45pm O2 Sat by Pulse Oximetry 98 % (90 - 100) 05/05/2016 2:45pm Oxygen Delivery Method Room Air 05/05/2016 1:30pm Oxygen Delivery Method Room Air 05/05/2016 2:45pm Blood Pressure 114/66 mm Hg 05/05/2016 2:45pm Blood Pressure Source Automatic Cuff 05/05/2016 2:45pm Height (Feet) 6 feet 05/05/2016 11:02am Height (Inches) 0.00 inches 05/05/2016 11:02am Weight (Kilograms) 82.000 kg 05/05/2016 11:14am Body Mass Index (BMI) 24.5 05/05/2016 11:02am Results Laboratory Results Test Name Result Units Flags Reference Collection Date/Time Result Date/ Time Comments Platelet Count 119 T/MM3 L 130-400 05/05/2016 10:59am 05/05/2016 11: 19am Prothromb Time International Ratio 1.01 0.99-1.21 05/05/2016 10:59am 05/05/2016 11:24am THERAPUTIC RANGE=2.00-3.00 FOR ANTI-THROMBOSIS THERAPUTIC RANGE=2.50-3.50 FOR IMPLANTED VALVE Body Fluid Color LIGHT YELLOW 05/05/2016 1:00pm [...] 05/05/2016 1:00pm 05/05/2016 1: 57pm Body Fluid Type Paracentes 05/05/2016 1:00pm 05/05/2016 1:59pm Albumin, Fluid performed at [facility], [address] [place] [address] Safe Deposit Attendant Kong Andre, Microbiology Results Procedure Source Organism/Result Collection Date/Time Result Date/Time Result Status Body Fluid Culture Paracentesis Fluid CULTURE INITIATED - RESULTS PENDING 05/05/2016 1:00pm 05/05/2016 1:44pm Preliminary Name: CHRIS GAONA Unit #: [id number] : 1935 Sex: M Admit Date: Loc / Svc: SRG Discharge Date: DIAGNOSTIC IMAGING REPORT Report #: [id number] [facility] JOE Rasmussen Indication:ITS.REASON: R18.8 OTHER ASCITES; K74.60 CIRRHOSIS OF LIVER Procedure:US GUIDE PARACENTESIS, SUBSEQ PARACENTESIS: The procedure [...] is done from a right lateral approach. 4800 ml of straw colored fluid was taken off without complication. The fluid was sent to lab for the requested studies. Following this the patient left the radiology department in good condition. Impression: Successful right-sided paracentesis performed with 4800 mL of fluid removed. Jitendra Chappell RPA/ performed this under my personal supervision. . Procedures Procedure Status Date Provider(s) ABD PARACENTESIS W/IMAGING Completed 04/12/16 JITENDRA WHYTE MD ECHO GUIDE FOR BIOPSY Completed 04/12/16 AUTOMATED PLATELET COUNT Completed 04/12/16 PROTHROMBIN TIME Completed 04/12/16 PPSV23 VACC 2 YRS+ SUBQ/IM Completed 04/12/16 [id number] OF PNEUMOCOCCAL VACCINE Completed 04/12/16 Encounters Encounter Location Arrival/Admit Date [facility] 05/05/16 2:58pm JITENDRA WHYTE MD [facility] 04/12/16 10:55am 04/12/16 4:05pm JITENDRA WHYTE MD
--- OUTSIDE RECORDS SUMMARY | 2016-11-04 14:43 | XMS REPORT ---
Author Author ALANNA QUIROS [facility] Address Unknown Phone Unavailable Care Team Providers Care Window Shade Cutter Name Role Phone Dr. ABDIAS LOVE Primary Care Physician Unavailable Allergies Allergy Description Allergy Type No Known Allergies Propensity to adverse reactions Procedures Procedure Type Procedure Description Date Physicians No codified procedures found for this patient. Results HGB A1C Observation Test Name Observation Test Result Observation Test Units Observation Test Date Observation Test Time HGB A1C 7.0 % 2012 15:21 eAG 154 mg/dL 2012 15:21 BASIC METABOLIC Observation Test Name Observation Test Result Observation Test Units Observation Test Date Observation Test Time GLUCOSE 134 mg/dL 15:19 BUN 14 mg/dL 2012 15:19 CREATININE 1.00 mg/dL 04/01/2013 15:19 AGE 78 YEARS 2012 15:19 GFR 76.6 04/01/2013 15:19 SODIUM 146 mmol/L 15:19 POTASSIUM 4.3 mmol/L 04/01/2013 15:19 CHLORIDE 105 mmol/L 15:19 CO2 30 mmol/L 2012 15:19 CALCIUM 8.9 mg/dL 15:19 History of Immunizations Immunization Date no immunization entries Plan of Care Item Text No plan of care items. Procedure Date/Time/Initials Critical? Status No plan of care procedures. Medication List Medication Dose Units Frequency Start Date/Time Status none Problem List Problem Entered Date Resolved Date No known problems
--- OUTSIDE RECORDS SUMMARY | 2016-11-04 14:43 | XMS REPORT | Continuity of Care Document ---
Author Author [facility] Organization [facility] Address Unknown Phone Unavailable Support Name Relationship Address Phone JITENDRA WHYTE MD Caregiver [address] [facility] [place] [address] Unavailable MELISSA FARRIS "LASHA" Caregiver [address] [place] [address] Unavailable GABRIELLA GAONA Next Of Kin [address] [place], [place] [address] Insurance Providers Guarantor Chris Gaona Address [address] [place] [address] C Email DENIED 16 [facility] Policy Number [id number] Subscriber's Name Chris Gaona Relationship 18 Self Group Number [id number] Payer Medicare Policy Number [id number] Subscriber's Name Chris Gaona Relationship 18 Self Advance Directives Directive Response Recorded Date/Time Ordered Resuscitation Status Full Code 09/16/16 10:07am Resuscitation Documents on File No 09/16/16 11:12am DPOA for Healthcare Only Y gabriella gaona-son 09/16/16 11:12am Living Will No 09/16/16 11:12am Problems Active Problems Medical Problem Onset Date [...] Status Reason for Hospitalization ULTRASOUND GUIDED PARACENTESIS 09/16/2016 3:43pm Not Applicable Not Applicable Chewing Tobacco Status No 09/16/2016 11:22am Not Applicable Not Applicable Hx Substance Use No 09/16/2016 11:22am Not Applicable Not Applicable Hx Alcohol Use No 09/16/2016 11:22am Not Applicable Not Applicable Has the pt used tobacco in the last 12 months No 09/16/2016 11:22am Not Applicable Not Applicable Query Response Start Date Stop Date Smoking Status Never smoker Hospital Discharge Instructions Instructions: Care Instructions: I was in the hospital because (patient own words): paracentesis Discharge Diet: PREVIOUSLY Discharge Activity: MAY DRIVE THE NEXT DAY MAY SHOWER/BATHE THE NEXT DAY Follow Up Appointments: NA Pending Lab / Results: No Pending Lab Patient Instructions: MAY RESTART HOME MEDICATIONS STOPPED FOR THIS PROCEDURE THE NEXT DAY Expected Signs/Symptoms: NA Notify Physician If: - During Business Hours:: Please call the physician's office After Business Hours:: Please call [phone] and have the pad machine operator page the physician. Pain Management/Treatment: NA Pain Scale Utilized to Educate Patient: 0-10 Pain Scale Wound/Incision Care: NA Condition at time of discharge: Good Plan of Care Discharge Date 09/16/16 4:30pm Instructions/Education Provided Abdominal Paracentesis (DC) Prescriptions See Medication Section Functional Status Query Response Date Recorded Mobility Status Ambulatory September 16, 2016 11:14am Assistive Devices None September 16, 2016 11:14am Activity Limitations None September 16, 2016 11:14am Feeding Ability Independent September 16, 2016 11:14am Toileting Ability Independent September 16, 2016 11:14am Grooming Ability Independent September 16, 2016 11:14am Dressing Ability Independent September 16, 2016 11:14am Driving Ability Independent September 16, 2016 11:14am Housework Ability Independent September 16, 2016 11:14am Meal Preparation Ability Independent September 16, 2016 11:14am Stair Climbing Ability Independent September 16, 2016 11:14am Ability to complete ADL's impeded by No change September 16, 2016 11:14am Cognitive/Perceptual Impairments Impaired vision September 16, 2016 11:14am Visual Assistive Devices Glasses With patient September 16, 2016 11:14am Preferred Method of Learning Reading Listening September 16, 2016 11:14am Allergies, Adverse Reactions, Alerts Allergen Type Severity Reaction Status Last Updated Morphine Allergy Unknown HALLUCINATIONS Active 09/16/16 Immunizations Query Response on File Recorded Date/Time Hx Influenza Vaccination Y MARCH 2016 09/16/16 11:22am Hx Pneumococcal Vaccination Y MARCH 2016 09/16/16 11:22am Hx Influenza Vaccination Y MARCH 2016 09/16/16 11:22am Influenza Vaccine Hx MAR 2016 09/16/16 12:30pm Vital Signs Acute Vital Signs Vital Response Date/Time Temperature (Fahrenheit) 97.9 deg F (96.8 - 99.1) 09/16/2016 11:11am Temperature (Calculated Celsius) 36.58852 degrees C (36.0 - 37.3) 09/16/2016 11:11am Temperature Source Temporal 09/08/2016 3:45pm Pulse Rate (adult) 61 bpm (60 - 100) 09/16/2016 4:00pm Respiratory Rate 16 breaths/min (10 - 20) 09/16/2016 2:07pm O2 Sat by Pulse Oximetry 99 % (90 - 100) 09/16/2016 4:00pm Oxygen Delivery Method Room Air 09/16/2016 1:47pm Oxygen Delivery Method Room Air 09/16/2016 4:00pm Blood Pressure 90/53 mm Hg 09/16/2016 4:00pm Blood Pressure Source Automatic Cuff 09/16/2016 4:00pm Height (Feet) 5 feet 09/16/2016 11:12am Height (Inches) 10.00 inches 09/16/2016 11:12am Weight (Kilograms) 81.400 kg 09/16/2016 11:12am Body Mass Index (BMI) 25.8 09/16/2016 11:12am Results Laboratory Results Test Name Result Units Flags Reference Collection Date/Time Result Date/ Time Comments Platelet Count 171 T/MM3 130-400 09/08/2016 1:08pm 09/08/2016 1:33pm Prothromb Time International Ratio 1.06 H 0.76-1.04 09/08/2016 1:08pm 09/08/2016 1:38pm THERAPUTIC RANGE=2.00-3.00 FOR ANTI-THROMBOSIS THERAPUTIC RANGE=2.50-3.50 FOR IMPLANTED VALVE Name: CHRIS GAONA Unit #: [id number] : 1935 Sex: M Admit Date: Loc / Svc: SRG Discharge Date: DIAGNOSTIC IMAGING REPORT Report #: [id number] [facility] JOE Rasmussen Indication:ITS.REASON ascites Procedure:GUIDE PARACENTESIS, SUBSEQ PARACENTESIS: The procedure including the [...] is done from a right lateral approach. 8.2 liters of straw colored fluid was taken off without complication. Following this, the patient was taken back to his recovery room to finish his albumin infusion. Impression: Successful paracentesis performed with 8.2 L of fluid removed. Jitendra Chappell RPA/ROBINSON [...] count Completed 08/05/16 Prothrombin time Completed 08/05/16 893313"EQUAL TO 48 SQ. IN., WITHOUT ADHESIVE BORDER, EACH DR Completed 02/17/ 17 [id number]"INFUSION, ALBUMIN (HUMAN), 25%, 50 ML" Completed 08/05/16698775"INFUSION, ALBUMIN (HUMAN), 25%, 50 ML" Completed 08/05/16 Abd paracentesis w/imaging Completed 08/17/16 JITENDRA WHTYE MD Automated platelet count Completed 08/17/16 Prothrombin time Completed 08/17/16370111"INFUSION, ALBUMIN (HUMAN), 25%, 50 ML" Completed 08/17/16097954"INFUSION, ALBUMIN (HUMAN), 25%, 50 ML" Completed 08/17/16192169"INFUSION, ALBUMIN (HUMAN), 25%, 50 ML" Completed 08/17/16792819"INFUSION, ALBUMIN (HUMAN), 25%, 50 ML" Completed 08/17/16 Routine venipuncture Completed 09/01/16 Abd paracentesis w/imaging Completed 09/01/16 BJ FAIRBANKS MD Automated platelet count Completed 09/01/16 Prothrombin time Completed 09/01/16990558"INFUSION, NORMAL SALINE SOLUTION , 250 CC" Completed 09/01/16453903"INFUSION, ALBUMIN (HUMAN), 25%, 50 ML" Completed 09/01/16101226"INFUSION, ALBUMIN (HUMAN), 25%, 50 ML" Completed 09/01/16904030"INFUSION, ALBUMIN (HUMAN), 25%, 50 ML" Completed 09/01/16139264"INFUSION, ALBUMIN (HUMAN), 25%, 50 ML" Completed 09/01/16 Routine venipuncture Completed 09/08/16 Abd paracentesis w/imaging Completed 09/08/16 JITENDRA WHYTE MD Automated platelet count Completed 09/08/16 Prothrombin time Completed 09/08/16880541"INFUSION, NORMAL SALINE SOLUTION , 250 CC" Completed 09/08/16569163"INFUSION, ALBUMIN (HUMAN), 25%, 50 ML" Completed 09/08/16 Encounters Encounter Location Arrival/Admit Date Discharge/Depart Date Attending Provider [facility] 09/16/16 10:58am 09/16/16 4:30pm JITENDRA WHYTE MD [facility] 09/08/16 12:40pm 09/08/16 6:15pm JITENDRA WHYTE MD [facility] 09/01/16 12:12pm 09/01/16 6:15BJ Salinas MD Departed [facility] 08/17/16 11:57am 08/17/16 7:10pm [facility] 08/05/16 11:13am 08/05/16 7:30pm [facility] 07/13/16 8:44am 07/13/16 3:25pm JITENDRA WHYTE MD
--- OUTSIDE RECORDS SUMMARY | 2016-11-04 14:43 | XMS REPORT | Continuity of Care Document ---
Author Author [facility] Organization [facility] Address Unknown Phone Unavailable Support Name Relationship Address Phone JITENDRA WHYTE MD Caregiver [address] [facility] [place] [address] Unavailable MELISSA FARRIS "LASHA" Caregiver [address] [place] [address] Unavailable RADHA GAONA Next Of Kin [address] [place], [place] [address] Insurance Providers Guarantor Chris Gaona Address [address] [place] [address] Email DENIED 10-14-16 [facility] Policy Number [id number] Subscriber's Name Chris Gaona Relationship 18 Self Group Number [id number] Payer Medicare Policy Number [id number] Subscriber's Name Chris Gaona Relationship 18 Self Advance Directives Directive Response Recorded Date/Time Ordered Resuscitation Status Full Code 10/14/16 11:22am Resuscitation Documents on File Yes 10/14/16 11:09am DPOA for Healthcare Only Yes 10/14/16 11:09am Living Will Yes 10/14/16 11:09am Problems Active Problems Medical Problem Onset Date [...] Onset Date Status Reason for Hospitalization Paracentesis 10/14/2016 5:20pm Not Applicable Not Applicable Chewing Tobacco Status No 10/14/2016 11:11am Not Applicable Not Applicable Hx Substance Use No 10/14/2016 11:11am Not Applicable Not Applicable Hx Alcohol Use No 10/14/2016 11:11am Not Applicable Not Applicable Has the pt used tobacco in the last 12 months No 10/14/2016 11:11am Not Applicable Not Applicable Query Response Start Date Stop Date Smoking Status Former smoker Hospital Discharge Instructions Instructions: Care Instructions: I was in the hospital because (patient own words): "fluid off my abdomen" Discharge Diet: as before Discharge Activity: as before Follow Up Appointments: as scheduled Pending Lab / Results: Follow up w/ your PCP Patient Instructions: RESTART MEDS STOPPED FOR THIS PROCEDURE NEXT DAY. MAY RETURN TO WORK THE NEXT DAY. MAY DRIVE STARTING NEXT DAY. MAY SHOWER/BATHE STARTING THE NEXT DAY. Expected Signs/Symptoms: see discharge instructions Notify Physician If: any concerns During Business Hours:: Please call the physician's office at After Business Hours:: Please call [phone] and have the flexographic press set up operator page the physician. Pain Management/Treatment: as prescribed Pain Scale Utilized to Educate Patient: 0-10 Pain Scale Wound/Incision Care: see discharge instructions Condition at time of discharge: Good Plan of Care Discharge Date 10/14/16 5:45pm Instructions/Education Provided Abdominal Paracentesis (DC) Prescriptions See Medication Section Functional Status Query Response Date Recorded Mobility Status Ambulatory October 14, 2016 11:22am Assistive Devices None October 14, 2016 11:22am Activity Limitations None October 14, 2016 11:22am Feeding Ability Independent October 14, 2016 11:22am Toileting Ability Independent October 14, 2016 11:22am Grooming Ability Independent October 14, 2016 11:22am Dressing Ability Independent October 14, 2016 11:22am Driving Ability Independent October 14, 2016 11:22am Housework Ability Independent October 14, 2016 11:22am Meal Preparation Ability Independent October 14, 2016 11:22am Stair Climbing Ability Independent October 14, 2016 11:22am Ability to complete ADL's impeded by No change October 14, 2016 11:22am Cognitive/Perceptual Impairments Impaired vision Impaired hearing October 14, 2016 11:22am Visual Assistive Devices Glasses October 14, 2016 11:22am Preferred Method of Learning Reading October 14, 2016 11:22am Allergies, Adverse Reactions, Alerts Allergen Type Severity Reaction Status Last Updated Penicillin Adverse Reaction Unknown Active 10/14/16 Morphine Allergy Unknown HALLUCINATIONS Active 10/14/16 Erythromycin base Allergy Unknown Active 10/14/16 Atorvastatin Allergy Unknown Active 10/14/16 Immunizations Query Response on File Recorded Date/Time Hx Influenza Vaccination Y MARCH 2016 10/14/16 11:11am Hx Pneumococcal Vaccination Y MARCH 2016 10/14/16 11:11am Hx Influenza Vaccination Y MARCH 2016 10/14/16 11:11am Influenza Vaccine Hx MAR 2016 09/30/16 8:35am Vital Signs Acute Vital Signs Vital Response Date/Time Temperature (Fahrenheit) 96.7 deg F (96.8 - 99.1) 10/14/2016 2:00pm Temperature (Calculated Celsius) 35.98187 degrees C (36.0 - 37.3) 10/14/2016 2:00pm Temperature Source Oral 09/30/2016 11:30am Pulse Rate (adult) 59 bpm (60 - 100) 10/14/2016 4:45pm Respiratory Rate 16 breaths/min (10 - 20) 10/14/2016 4:45pm O2 Sat by Pulse Oximetry 100 % (90 - 100) 10/14/2016 4:45pm Oxygen Delivery Method Room Air 10/14/2016 12:52pm Oxygen Delivery Method Room Air 10/14/2016 4:45pm Blood Pressure 95/55 mm Hg 10/14/2016 4:45pm Blood Pressure Source Automatic Cuff 10/14/2016 4:45pm Height (Feet) 5 feet 10/14/2016 11:08am Height (Inches) 10.00 inches 10/14/2016 11:08am Weight (Kilograms) 81.000 kg 10/14/2016 11:08am Body Mass Index (BMI) 25.6 10/14/2016 11:08am Results Laboratory Results Test Name Result Units Flags Reference Collection Date/Time Result Date/ Time Comments Platelet Count 128 T/MM3 L 130-400 09/30/2016 8:26am 09/30/2016 8:32am Prothromb Time International Ratio 1.12 H 0.76-1.04 09/30/2016 8:26am 09/30/2016 8:37am THERAPUTIC RANGE=2.00-3.00 FOR ANTI-THROMBOSIS THERAPUTIC RANGE=2.50-3.50 FOR IMPLANTED VALVE Name: CHRIS GAONA Unit #: [id number] : 1935 Sex: M Admit Date: Loc / Svc: SRG Discharge Date: DIAGNOSTIC IMAGING REPORT Report #: [id number] [facility] JOE Rasmussen Indication:ITS.REASON: ASCITES, CIRRHOSIS Procedure:US GUIDE PARACENTESIS, INITIAL PARACENTESIS: The [...] is done from a right lateral approach. 6500 ml of straw colored fluid was taken off without complication. Following this, the patient was taken back to his recovery room to finish his albumin infusion. Impression: Successful paracentesis performed with 6500 mL of fluid removed. Jitendra Chappell RPA/ROBINSON performed this under my personal supervision. . Procedures Procedure Status Date Provider(s) Abd paracentesis w/imaging Completed 08/05/16 JITENDRA WHYTE MD Automated platelet count Completed 08/05/16 Prothrombin time Completed 08/05/16 [id number]"EQUAL TO 48 SQ. IN., WITHOUT ADHESIVE BORDER, EACH DR Completed 908963"INFUSION, ALBUMIN (HUMAN), 25%, 50 ML" Completed 08/05/16 899070"INFUSION, ALBUMIN (HUMAN), 25%, 50 ML" Completed 08/05/16 Abd paracentesis w/imaging Completed 08/17/16 JITENDRA WHYTE MD Automated platelet count Completed 08/17/16 Prothrombin time Completed 08/17/16 [id number]"INFUSION, ALBUMIN (HUMAN), 25%, 50 ML" Completed 08/17/16242308"INFUSION, ALBUMIN (HUMAN), 25%, 50 ML" Completed 08/17/16401931"INFUSION, ALBUMIN (HUMAN), 25%, 50 ML" Completed 08/17/16 114318"INFUSION, ALBUMIN (HUMAN), 25%, 50 ML" Completed 08/17/16 Routine venipuncture Completed 09/01/16 Abd paracentesis w/imaging Completed 09/01/16 BJ FAIRBANKS MD Automated platelet count Completed 09/01/16 Prothrombin time Completed 09/01/16876086"INFUSION, NORMAL SALINE SOLUTION , 250 CC" Completed 09/01/16955053"INFUSION, ALBUMIN (HUMAN), 25%, 50 ML" Completed 09/01/16867671"INFUSION, ALBUMIN (HUMAN), 25%, 50 ML" Completed 09/01/16 998747"INFUSION, ALBUMIN (HUMAN), 25%, 50 ML" Completed 09/01/16056673"INFUSION, ALBUMIN (HUMAN), 25%, 50 ML" Completed 09/01/16 Routine venipuncture Completed 09/08/16 Abd paracentesis w/imaging Completed 09/08/16 JITENDRA WHYTE MD Automated platelet count Completed 09/08/16 Prothrombin time Completed 09/08/16556982"INFUSION, NORMAL SALINE SOLUTION , 250 CC" Completed 09/08/16748624"INFUSION, ALBUMIN (HUMAN), 25%, 50 ML" Completed 09/08/16 Abd paracentesis w/imaging Completed 09/16/16 JITENDRA WHYTE MD [id number]"INFUSION, NORMAL SALINE SOLUTION , 250 CC" Completed 09/16/16456180"INFUSION, ALBUMIN (HUMAN), 25%, 50 ML" Completed 09/16/16 Abd paracentesis w/imaging Completed 09/23/16 JITENDRA WHYTE MD 145917"INFUSION, NORMAL SALINE SOLUTION , 250 CC" Completed 09/23/16992469"INFUSION, ALBUMIN (HUMAN), 25%, 50 ML" Completed 09/23/16 354372"INFUSION, ALBUMIN (HUMAN), 25%, 50 ML" Completed 09/23/16 202941"INFUSION, ALBUMIN (HUMAN), 25%, 50 ML" Completed 09/23/16 Routine venipuncture Completed 09/30/16 Abd paracentesis w/imaging Completed 09/30/16 JITENDRA WHYTE MD Automated platelet count Completed 09/30/16 Prothrombin time Completed 09/30/16 637023"INFUSION, NORMAL SALINE SOLUTION , 250 CC" Completed 09/30/16 928366"INFUSION, ALBUMIN (HUMAN), 25%, 50 ML" Completed 09/30/16 647093"INFUSION, ALBUMIN (HUMAN), 25%, 50 ML" Completed 09/30/16 Encounters Encounter Location Arrival/Admit Date Discharge/Depart Date Attending Provider [facility] 10/14/16 10:51am 10/14/16 5:45pm JITENDRA WHYTE MD [facility] 10/07/16 8:23am 10/07/16 3:02pm JITENDRA WHYTE MD [facility] 09/30/16 7:43am 09/30/16 2:45pm JITENDRA WHYTE MD [facility] 09/23/16 10:35am 09/23/16 4:21pm JITENDRA WHYTE MD [facility] 09/16/16 10:58am 09/16/16 4:30pm JITENDRA WHYTE MD [facility] 09/08/16 12:40pm 09/08/16 6:15pm JITENDRA WHYTE MD [facility] 09/01/16 12:12pm 09/01/16 6:15pm BJ FAIRBANKS MD [facility] 08/17/16 11:57am 08/17/16 7:10pm JITENDRA WHYTE MD [facility] 08/05/16 11:13am 08/05/16 7:30pm JITENDRA WHYTE MD
--- OUTSIDE RECORDS SUMMARY | 2016-11-04 14:43 | XMS REPORT | Continuity of Care Document ---
Author Author [facility] Organization [facility] Address Unknown Phone Unavailable Support Name Relationship Address Phone JITENDRA WHYTE MD Caregiver [address] [facility] [place] [address] Unavailable MELISSA FARRIS "LASHA" Caregiver [address] [place] [address] Unavailable RADHA GAONA Next Of Kin [address] [place], [place] [address] Insurance Providers Guarantor Chris Gaona Address [address] [place] [address] C Email DENIED/NO TO PT [facility] Policy Number [id number] Subscriber's Name Chris Gaona Relationship 18 Self Group Number [id number] Payer Medicare Policy Number [id number] Subscriber's Name Chris Gaona Relationship 18 Self Advance Directives Directive Response Recorded Date/Time Ordered Resuscitation Status Full Code 04/12/16 10:10am Resuscitation Documents on File Yes 04/12/16 11:14am DPOA for Healthcare Only Y DAUGHTER: DONNY SUÁREZ 04/12/16 11:14am Living Will Yes 04/12/16 11:14am Problems Active Problems Medical Problem Onset Date Status Acid reflux Unknown Resolved CAD (coronary artery disease) Unknown Chronic Chest pain Unknown Resolved Medications Current Home Medications Medication Dose Units Route Directions Days Qty Instructions Start Date Acetaminophen With Codeine (Tylenol With Codeine #3 Tablet) 300-30 Tablet 1 Tab Oral Every 4 Hours as needed for Pain Take 1 tablet, by mouth, every 4 hours as needed for Pain 04/12/16 Aspirin (Low Dose Aspirin Ec) 81 Mg [...] Mcg Tablet 1,000 Mcg Oral Daily 12/12/11 Docusate Sodium 100 Mg Capsule 1 Cap Oral Daily 30 Capsule 04/12/16 Ferrous Sulfate 324 Mg Tablet 324 Mg Oral Daily 09/08/11 Fish Oil/Dha/Epa (Fish Oil 1,200 Mg Fish Oil) 1 Each Capsule 2 Tab Oral Daily 12/30/14 Furosemide 40 Mg Tablet 1 Tab Oral Daily 04/12/16 Insulin Glargine (Lantus Solostar) 1 Unit Pen 15 Unit Sub-Q Daily 02/03/09 Insulin Lispro (Humalog) 100 U/Ml Cartridge 5 Unit Sub-Q With Meals Three Times Daily 12/12/11 Levothyroxine Sodium (Synthroid) 75 Mcg Tablet 75 Mcg Oral Daily 09/08/11 Magnesium Oxide (Magnesium) 400 Mg Capsule 1 Tab Oral Daily 12/30 Metformin Hcl 1,000 Mg Tablet 1,000 Mg Oral Twice A Day instructed not to take metformin evening before OR 02/03/09 Nitroglycerin 0.4 Mg Tab.subl 0.4 Mg Sublingual as needed for Chest Tightness 04/12/16 Omeprazole 20 Mg Tablet.dr 20 Mg Oral Daily Take 1 tablet, by mouth , one time a day with breakfast. 12/30/14 Spironolactone 50 Mg Tablet 50 Mg Oral Daily 04/12/16 Tamsulosin Hcl 0.4 Mg Cap.er.24h 0.4 Mg Oral Bedtime Take 1 capsule , by mouth, 1 time a day (at [...] Date/Time Onset Date Status Reason for Hospitalization ULTRASOUND-GUIDED PARACENTESIS 04/12/2016 3:33pm Not Applicable Not Applicable Hx Substance Use No 12/12/2011 2:20pm Not Applicable Not Applicable Hx Alcohol Use No 12/12/2011 2:20pm Not Applicable Not Applicable Has the pt used tobacco in the last 12 months No 04/12/2016 11:17am Not Applicable Not Applicable Query Response Start Date Stop Date Smoking Status Former smoker Hospital Discharge Instructions Instructions: Care Instructions: I was in the hospital because (patient own words): "SWELLING" Discharge Diet: ADVANCE TOLERATED TO PRE-ADMIT DIET Discharge Activity: N/A Follow Up Appointments: N/A Pending Lab / Results: Follow up w/ your PCP Patient Instructions: -RESTART ANY MEDICINE STOPPED FOR THIS PROCEDURE AT NEXT DAY. -MAY RETURN TO WORK THE NEXT DAY. [employer] STARTING NEXT DAY. -MAY SHOWER/ BATHE STARTING THE NEXT DAY. Expected Signs/Symptoms: N/A Notify Physician If: ANY CONCERNS During Business Hours:: PLEASE CALL PRIMARY CARE PHYSICIAN After Business Hours:: N/A Pain Management/Treatment: N/A Pain Scale Utilized to Educate Patient: 0-10 Pain Scale Wound/Incision Care: N/A Condition at time of discharge: Good Plan of Care Discharge Date 04/12/16 4:05pm Instructions/Education Provided DI for Abdominal Paracentesis Abdominal Paracentesis Prescriptions See Medication Section Functional Status Query Response Date Recorded Mobility Status Ambulatory April 12, 2016 11:23am Assistive Devices None April 12, 2016 11:23am Activity Limitations None April 12, 2016 11:23am Feeding Ability Independent April 12, 2016 11:23am Toileting Ability Independent April 12, 2016 11:23am Grooming Ability Independent April 12, 2016 11:23am Dressing Ability Independent April 12, 2016 11:23am Driving Ability Independent April 12, 2016 11:23am Meal Preparation Ability Independent April 12, 2016 11:23am Stair Climbing Ability Independent April 12, 2016 11:23am Ability to complete ADL's impeded by No change April 12, 2016 11:23am Cognitive/Perceptual Impairments None April 12, 2016 11:23am Visual Assistive Devices Glasses With patient April 12, 2016 11:23am Allergies, Adverse Reactions, Alerts Allergen Type Severity Reaction Status Last Updated No Known Drug Allergies Allergy Unknown Active 02/02/09 Immunizations Immunization Event Date Type Not Given Reason Dose Number Lot Number Flag Decorator VIS Given Pneumococcal conjugate PCV 13 04/12/16 Administered 1 [id number] Pfizer Query Response on File Recorded Date/Time Hx Influenza Vaccination Y MARCH 2016 04/12/16 11:17am Hx Pneumococcal Vaccination Y fall 2010?? 04/12/16 11:17am Hx Influenza Vaccination Y MARCH 2016 04/12/16 11:17am Influenza Vaccine Hx MARCH 2016 04/12/16 11:25am Vital Signs Acute Vital Signs Vital Response Date/Time Temperature (Fahrenheit) 97.6 deg F (96.8 - 99.1) 04/12/2016 2:15pm Temperature (Calculated Celsius) 36.28797 degrees C (36.0 - 37.3) 04/12/2016 2:15pm Pulse Rate (adult) 57 bpm (60 - 100) 04/12/2016 3:15pm Respiratory Rate 16 breaths/min (10 - 20) 04/12/2016 2:15pm O2 Sat by Pulse Oximetry 98 % (90 - 100) 04/12/2016 3:15pm Oxygen Delivery Method Room Air 04/12/2016 1:56pm Oxygen Delivery Method Room Air 04/12/2016 3:15pm Blood Pressure 99/60 mm Hg 04/12/2016 3:15pm Blood Pressure Source Automatic Cuff 04/12/2016 3:15pm Height (Feet) 6 feet 04/12/2016 11:14am Height (Inches) 0.00 inches 04/12/2016 11:14am Weight (Kilograms) 90.000 kg 04/12/2016 11:14am Body Mass Index (BMI) 26.9 04/12/2016 11:14am Results Laboratory Results Test Name Result Units Flags Reference Collection Date/Time Result Date/ Time Comments Platelet Count 119 T/MM3 L 130-400 04/12/2016 11:48am 04/12/2016 12: 16pm Prothromb Time International Ratio 1.19 0.99-1.21 04/12/2016 11:53am 04/12/2016 12:21pm THERAPUTIC RANGE=2.00-3.00 FOR ANTI-THROMBOSIS THERAPUTIC RANGE=2.50-3.50 FOR IMPLANTED VALVE Name: CHRIS GAONA Unit #: [id number] : 1935 Sex: M Admit Date: Loc / Svc: SRG Discharge Date: DIAGNOSTIC IMAGING REPORT Report #: [id number] [facility] [place] Indication:ITS.REASON: K74.60 CIRRHOSIS; R18.8 ASCITES Procedure:US GUIDE PARACENTESIS, INITIAL PARACENTESIS: The procedure [...] is done from a right lateral approach. 5 liters of straw colored fluid was taken off without complication. Following this, the patient was taken back to the surgical floor for continued monitoring. Impression: Successful paracentesis performed with 5 L of fluid removed. Jitendra Chappell RPA/ performed this under my personal supervision. . Procedures No known history of procedures. Encounters Encounter Location Arrival/Admit Date Discharge/Depart Date Attending Provider Departed Clinic [facility] 04/12/16 10:55am 04/12/16 4:05pm JITENDRA WHYTE MD
--- OUTSIDE RECORDS SUMMARY | 2016-11-04 14:43 | XMS REPORT | Continuity of Care Document ---
Author Author [facility] Organization [facility] Address Unknown Phone Unavailable Support Name Relationship Address Phone HOUSE, KEVIN Arciniega MD Caregiver [address] [place] [address] Unavailable MELISSA FARRIS "LASHA" Caregiver [address] [place] [address] Unavailable RADHA GAONA Next Of Kin [address] [place], [place] [address] Insurance Providers Guarantor Chris Gaona Address [address] [place] [address] C Email DENIED [facility] Policy Number [id number] Subscriber's Name Chris Gaona Relationship 18 Self Group Number [id number] Payer Medicare Policy Number [id number] Subscriber's Name Chris Gaona Relationship 18 Self Advance Directives Directive Response Recorded Date/Time Ordered Resuscitation Status Full Code 09/01/16 7:46am DPOA for Healthcare Only Yes 09/01/16 12:28pm Living Will Yes 09/01/16 12:28pm Problems Active Problems Medical Problem Onset Date [...] Date/Time Onset Date Status Reason for Hospitalization acites, cirrhosis 09/01/2016 5:34pm Not Applicable Not Applicable Chewing Tobacco Status No 09/01/2016 12:28pm Not Applicable Not Applicable Hx Substance Use No 09/01/2016 12:28pm Not Applicable Not Applicable Hx Alcohol Use No 09/01/2016 12:28pm Not Applicable Not Applicable Has the pt used tobacco in the last 12 months No 09/01/2016 12:30pm Not Applicable Not Applicable Query Response Start Date Stop Date Smoking Status Former smoker Hospital Discharge Instructions Instructions: Care Instructions: I was in the hospital because (patient own words): TO GET MY STOMACH DRAINED Discharge Diet: as tolerated Discharge Activity: -RESTART MEDS STOPPED FOR THIS PROCEDURE AT NEXT DAY. -MAY RETURN TO WORK THE NEXT DAY. [employer] [address] STARTING NEXT DAY. -MAY SHOWER/BATHE STARTING THE NEXT DAY. Follow Up Appointments: n/a Pending Lab / Results: No Pending Lab Patient Instructions: N/A Expected Signs/Symptoms: n/a Notify Physician If: n/a During Business Hours:: Please call the physician's office at After Business Hours:: Please call [phone] and have the euclid operator page the physician. Pain Management/Treatment: N/A Pain Scale Utilized to Educate Patient: 0-10 Pain Scale Wound/Incision Care: N/A Durable Medical Equipment: N/A Condition at time of discharge: Fair Plan of Care Discharge Date 09/01/16 6:15pm Instructions/Education Provided Abdominal Paracentesis (DC) Prescriptions See Medication Section Functional Status Query Response Date Recorded Mobility Status Ambulatory w/assist September 01, 2016 12:32pm Assistive Devices None September 01, 2016 12:32pm Activity Limitations Weakness Fatigue September 01, 2016 12:32pm Feeding Ability Independent September 01, 2016 12:32pm Toileting Ability Independent September 01, 2016 12:32pm Grooming Ability Independent September 01, 2016 12:32pm Dressing Ability Independent September 01, 2016 12:32pm Driving Ability Dependent September 01, 2016 12:32pm Housework Ability Dependent September 01, 2016 12:32pm Meal Preparation Ability Dependent September 01, 2016 12:32pm Stair Climbing Ability Assist September 01, 2016 12:32pm Ability to complete ADL's impeded by No change September 01, 2016 12:32pm Cognitive/Perceptual Impairments None September 01, 2016 12:32pm Allergies, Adverse Reactions, Alerts Allergen Type Severity Reaction Status Last Updated Morphine Allergy Unknown HALLUCINATIONS Active 09/01/16 Immunizations Query Response on File Recorded Date/Time Hx Influenza Vaccination Y MARCH 2016 09/01/16 12:30pm Hx Pneumococcal Vaccination Y MARCH 2016 09/01/16 12:30pm Hx Influenza Vaccination Y MARCH 2016 09/01/16 12:30pm Influenza Vaccine Hx FEB 2016 08/17/16 4:39pm Vital Signs Acute Vital Signs Vital Response Date/Time Temperature (Fahrenheit) 98.1 deg F (96.8 - 99.1) 09/01/2016 12:31pm Temperature (Calculated Celsius) 36.05632 degrees C (36.0 - 37.3) 09/01/2016 12:31pm Temperature Source Oral 08/17/2016 4:20pm Pulse Rate (adult) 65 bpm (60 - 100) 09/01/2016 5:30pm Respiratory Rate 15 breaths/min (10 - 20) 09/01/2016 3:30pm O2 Sat by Pulse Oximetry 100 % (90 - 100) 09/01/2016 5:30pm Oxygen Delivery Method Room Air 09/01/2016 5:30pm Oxygen Delivery Method Room Air 09/01/2016 12:31pm Blood Pressure 102/59 mm Hg 09/01/2016 5:30pm Blood Pressure Source Automatic Cuff 09/01/2016 5:30pm Height (Feet) 5 feet 09/01/2016 12:26pm Height (Inches) 10.00 inches 09/01/2016 12:26pm Weight (Kilograms) 88.700 kg 09/01/2016 12:26pm Body Mass Index (BMI) 28.1 09/01/2016 12:26pm Results Laboratory Results Test Name Result Units Flags Reference Collection Date/Time Result Date/ Time Comments Platelet Count 141 T/MM3 130-400 09/01/2016 12:41pm 09/01/2016 12:50pm Prothromb Time International Ratio 1.10 H 0.76-1.04 09/01/2016 12:41pm 09/01/2016 12:54pm THERAPUTIC RANGE=2.00-3.00 FOR ANTI-THROMBOSIS THERAPUTIC RANGE=2.50-3.50 FOR IMPLANTED VALVE Name: CHRIS GAONA Unit #: [id number] : 1935 Sex: M Admit Date: Loc / Svc: SRG Discharge Date: DIAGNOSTIC IMAGING REPORT Report #: [id number] [facility] JOE Rasmussen Indication:ITS.REASON: R18.8; K74.60 Procedure:US GUIDE PARACENTESIS, INITIAL PARACENTESIS: The procedure [...] is done from a right lateral approach. 9650 ml of straw colored fluid was taken off without complication. Following this, the patient was taken to his recovery room to finish his albumin infusion. Impression: Successful thoracentesis performed with 9650 mL of fluid removed. Jitendra Chappell RPA/ROBINSON performed this under my personal supervision. . Procedures Procedure Status Date Provider(s) Abd paracentesis w/imaging Completed 06/07/16 JITENDRA GORE MD Echo guide for biopsy Completed 06/07/16 Automated platelet count Completed 06/07/16 Prothrombin time Completed 06/07/16 Routine venipuncture Completed 07/13/16 Abd paracentesis w/imaging Completed 07/13/16 JITENDRA GORE MD Automated platelet count Completed 07/13/16 Prothrombin time Completed 07/13/16 [id number]"INFUSION, ALBUMIN (HUMAN), 25%, 50 ML" Completed 07/13/16 Abd paracentesis w/imaging Completed 08/05/16 JITENDRA GORE MD Automated platelet count Completed 08/05/16 Prothrombin time Completed 08/05/16 [id number]"EQUAL TO 48 SQ. IN., WITHOUT ADHESIVE BORDER, EACH DR Completed "INFUSION, ALBUMIN (HUMAN), 25%, 50 ML" Completed 08/05/16"INFUSION, ALBUMIN (HUMAN), 25%, 50 ML" Completed 08/05/16 Abd paracentesis w/imaging Completed 08/17/16 JITENDRA GORE MD Automated platelet count Completed 08/17/16 Prothrombin time Completed 08/17/16"INFUSION, ALBUMIN (HUMAN), 25%, 50 ML" Completed 08/17/16"INFUSION, ALBUMIN (HUMAN), 25%, 50 ML" Completed 08/17/16"INFUSION, ALBUMIN (HUMAN), 25%, 50 ML" Completed 08/17/16"INFUSION, ALBUMIN (HUMAN), 25%, 50 ML" Completed 08/17/16 Encounters Encounter Location Arrival/Admit Date Discharge/Depart Date Attending Provider [facility] 09/01/16 12:12pm 09/01/16 6:15pm KEVIN FAIRBANKS MD [facility] 08/17/16 11:57am 08/17/16 7:10pm JITENDRA GORE MD [facility] 08/05/16 11:13am 08/05/16 7:30pm JITENDRA GORE MD [facility] 07/13/16 8:44am 07/13/16 3:25pm JITENDRA GORE MD [facility] 06/07/16 8:48am 06/07/16 1:43pm JITENDRA GORE MD
--- OUTSIDE RECORDS SUMMARY | 2016-11-04 14:43 | XMS REPORT | CCD ---
Author Author GIBRAN GARCIA Organization Unknown Address [address], [place] [id number] Phone 0 Care Team Providers Care Drywall Taper Name Role Phone LASHA FARRIS Attending Physician [phone] Vital Signs Unknown or Not Available. Allergies [...] Code Start Date End Date Never smoker [id number] Patient Decision Aids Unknown or Not Available. Discharge Instructions You were admitted to [facility] on 08/17/2015 11:38 with a principal diagnosis of Anemia, unspecified You had the following tests done: BASIC METABOLIC CBC W/ DIFF You were discharged from [facility] on 08/17/2015 11:38 Should you have [...]
[2016-11-04 14:48] VITALS: BP 114/62; PULSE 74; RESP 18; TEMP 95.7; O2SAT 97
[2016-11-04 16:10] LABS: BASOPHILS % (AUTO) 0.7 % (0-2); HCT - HEMATOCRIT 20.4 % (41-53); HGB - HEMOGLOBIN 6.7 GM/DL (13.5-17.5); IMMATURE GRANULOCYTE # (AUTO) 0.01 T/MM3 (0.00-0.03); IMMATURE GRANULOCYTE % (AUTO) 0.3 % (0.0-0.5); LYMPHOCYTES # (AUTO) 0.9 T/MM3 (1-4.8); LYMPHOCYTES % (AUTO) 28.6 % (23-45); MEAN CORPUSCULAR HGB 29.8 UUG (26-34); MEAN CORPUSCULAR HGB CONC(MCHC 32.8 GM/DL (31-37); MEAN CORPUSCULAR VOLUME 90.7 UM3 (80-100); MEAN PLATELET VOLUME 8.7 UM3 (9.4-12.4); MONOCYTES # (AUTO) 0.4 T/MM3 (0-0.8); MONOCYTES % (AUTO) 14.1 % (0-9.0); NEUTROPHILS #(AUTO)-ABSOLUTE 1.6 T/MM3 (1.8-7.7); NEUTROPHILS % (AUTO) 55.3 % (33-66); RED BLOOD COUNT 2.25 M/MM3 (4.50-5.90)
[2016-11-04 16:17] LABS: AMMONIA 11 UMOL/L (9-33)
[2016-11-04] MEDS ORDERED: NORMAL SALINE 500 ML IV SCH (16:18)
[2016-11-04 16:19] LABS: ALBUMIN 3.1 G/DL (3.5-5.0); ALBUMIN/GLOBULIN RATIO 1.5 RATIO (1.1-2.2); ALKALINE PHOSPHATASE 199 U/L (38-126); ALT (SGPT) 45 U/L (21-72); ANION GAP 12 MEQ/L (5-15); AST (SGOT) 40 U/L (17-59); BUN/CREATININE RATIO 32 RATIO (6-26); CALCIUM 9.1 MG/DL (8.4-10.2); CHLORIDE 103 MEQ/L (98-107); CO2 - CARBON DIOXIDE 24 MEQ/L (22-30); CREATININE 1.6 MG/DL (0.8-1.5); GLOMERULAR FILTRATION RATE 42; GLUCOSE 121 MG/DL (75-110); LDH 425 U/L (313-618); MAGNESIUM 2.1 MG/DL (1.6-2.3); POTASSIUM 4.5 MEQ/L (3.6-5); SODIUM 139 MEQ/L (134-144); TOTAL PROTEIN 5.2 G/DL (6.3-8.2)
[2016-11-04 16:20] LABS: INR 1.12 (0.77-1.03); PROTHROMBIN TIME 12.3 SEC (9.48-12.52)
[2016-11-04] MEDS ORDERED: DiphenhydrAMINE 25 MG CAPSULE PO ONE (16:30)
[2016-11-04] MEDS ORDERED: MAG-AL + SIM LIQUID 30 ML UDC PO PRN (16:45)
[2016-11-04] MEDS ORDERED: NITROGLYCERIN 0.4 MG SUBLINGUAL TABLET SL PRN (16:45)
[2016-11-04] MEDS ORDERED: ACETAMINOPHEN 325 MG TABLET PO PRN (16:45)
[2016-11-04] MEDS ORDERED: PRN ORDERS MC (16:45)
[2016-11-04] MEDS ORDERED: ONDANSETRON 4mg/2ml INJECTION IV PRN (16:45)
[2016-11-04] MEDS ORDERED: BISACODYL 10 MG SUPPOSITORY RECTALLY PRN (16:45)
[2016-11-04] MEDS ORDERED: MILK OF MAGNESIA 30 ML SUSP PO PRN (16:45)
--- NOTE | 2016-11-04 17:07 | HPPDOC ---
BELKIS BRADY V ASSISTANT PORTFOLIO MANAGER 11/04/16 1650: HPI - Adult Date DATE: 11/04/16 TIME: 16:36 General Chief Complaint: weakness, Anemia, cirrhosis History of Present Illness Patient is an 81-year-old male who is currently under the primary care of Dr. Jann Bardales in [place]. Patient has a known history of liver cirrhosis and has been undergoing weekly paracentesis since the middle of august. It is reported that on Wednesday 11/01. Patient fell at home after losing his balance. He was evaluated in the [place] emergency room and underwent a CT scan of the head which was negative at that time. He did suffer multiple skin tears and has bruising throughout his entire trunk and arms. He continues to have increased weakness, thus he presented to the [place] emergency room again this morning for further evaluation. There he was found to be anemic with a hemoglobin of 7.5, count of 3.6, RBCs of 2.53, hematocrit 22.4, platelet count 131. Cardiac panel was performed which did reveal slight elevation in troponin at 0.23, CPK 87, CK- MB 2.5. TSH 7.64, ammonia 26. Sodium is 138, potassium 5.1, glucose 131, BUN 50 , creatinine slightly elevated at 2.0. Baseline appears to be at 1.5. A urinalysis is obtained that is unremarkable. Twelve-lead EKG revealed sinus rhythm with first-degree block. Given findings of anemia, accompanied with chronic cirrhosis and likely need of a paracentesis as well as elevated troponin and significant weakness [facility] hospitalist services were contacted and accepted patient for direct admission as an outpatient for further evaluation and treatment. Mr Stratton is seen on arrival to [facility]. He is alert and orientated and reports that he feels generally weak. Reports having increased soreness to left upper ext and multiple areas of ecchymosis on his fall on Wednesday 11/01. Majority of history is obtained from patient's daughter at the bedside. She does state that he was diagnosed with cirrhosis sometime at the end of 2015. It is unclear his cause for cirrhosis. He had had chronic atrial fibrillation and was placed on anticoagulation in the past. At that time he developed a GI bleeding and was hospitalized at [facility] this all took place in 2016. Did discuss advanced directives and patient and daughter both verify patient is a do not resuscitate. Past Medical History Past Medical History History of prostate cancer. History of anemia. Coronary artery disease with NV Cirrhosis Type II diabetes Hyperlipidemia Hypothyroidism. Diverticulosis. Atrial fibrillation. GERD Surgical History Patient's Surgical History: Prostatectomy Multiple paracentesis Current Medications Home Meds Reported Medications [Potassium ] No Conflict Check, 99 MG PO DAILY 10/28/16 Insulin Aspart (Novolog Flexpen) 1 Unit Pen, 8 SQ BID, SYRINGE 10/14/16 Dimethicone/Latrell/Vit A,C,E/Martin (Gold Burrell Ult Diabetic Cream) 96 Gm Cream..g., 1 APPLIC TD PRN 08/17/16 Clobetasol Propionate/Emoll (Clobetasol Emollient 0.05% Crm) 15 Gm Cream..g., 1 APPLIC TD BID 08/17/16 Insulin Glargine,Hum.rec.anlog (Lantus Solostar) 1 Unit Pen, 8 UNIT SQ DAILY, # 15 05/05/16 Aspirin *EC* (Low Dose Aspirin EC) 81 Mg Tablet.dr, 1 TAB PO DAILY, #30 TAB 3 Refills 04/12/16 Furosemide (Furosemide) 40 Mg Tablet, 1 TAB PO DAILY, TAB 04/12/16 Spironolactone (Spironolactone) 50 Mg Tablet, 50 MG PO DAILY, TAB 04/12/16 Tamsulosin HCl (Tamsulosin HCl) 0.4 Mg Cap.er.24h, 0.4 MG PO DAILY, CAP Take 1 capsule, by mouth, 1 time a day (at BEDTIME). 04/12/16 Nitroglycerin (Nitroglycerin) 0.4 Mg Tab.subl, 0.4 MG SL Y for CHEST TIGHTNESS, TAB 04/12/16 Magnesium Oxide (Magnesium) 400 Mg Capsule, 1 TAB PO DAILY, CAP 12/30/14 Omeprazole (Omeprazole) 20 Mg Tablet.dr, 40 MG PO DAILY, TAB Take 1 tablet, by mouth, one time a day with breakfast. 12/30/14 Cyanocobalamin (Vitamin B-12) 1,000 Mcg Tablet, 1000 MCG PO DAILY 12/12/11 Ferrous Sulfate (Ferrous Sulfate) 324 Mg Tablet, 324 MG PO DAILY 09/08/11 Levothyroxine Sodium (Synthroid) 75 Mcg Tablet, 75 MCG PO DAILY 09/08/11 Calcium Carbonate/Vitamin D3 (Calcium + D 600 Mg Tablet) 1 Tab Tablet, 1 TAB PO DAILY 02/03/09 Metformin Hcl (Metformin Hcl) 1,000 Mg Tablet, 500 MG PO BID instructed not to take metformin evening before OR 02/03/09 Allergies: Coded Allergies: atorvastatin (Verified Allergy, Unknown, 10/28/16) erythromycin base (Unverified Allergy, Unknown, 10/28/16) morphine (Verified Allergy, Unknown, HALLUCINATIONS, 10/28/16) Penicillins (Verified Adverse Reaction, Unknown, 10/28/16) Family History Family History: Other at age 100. Father at age 90, both for relatively well Social History Smoking Status: Never smoker Substance Use Type: does not use Alcohol Intake: none Housing: house (resides independently) Advance Directives: Yes DNR, Yes DPOA for Healthcare Only (Chela Trinh, daughter, Alvin Stratton, son) Social History Comments Primary care provider, Dr. Bardales. Data Conversion Operator Dr. Seaman Urologist-Dr. Val Luna Review of Systems Constitutional: REPORTS: fatigue, weakness GI Upper Abdomen: abdominal swelling Lower Abdomen: DENIES: blood in stool Musculoskeletal General: pain (left upper ext), see HPI Integumentary Skin: other (multiple skin tears to bilateral upper extremities, Buttock coccyx wound) All Other Systems All Other Systems: Reviewed (remainder of 10-point ROS Neg.) Physical Exam General General Nourishment: well nourished, well developed Vital Signs Vital Signs Date Time Temp Pulse Resp B/P Pulse Ox O2 Delivery O2 Flow Rate FiO2 11/04/16 14:48 95.7 74 18 114/62 97 Room Air Height (Feet): 5 Height (Inches): 10.00 Eyes Brief: FOUND: EOMI Respiratory Brief: FOUND: clear all carson, equal bilaterally, NOT FOUND: wheezes Cardiovascular (brief) Cardiac Brief: FOUND: pedal edema, regular rate, regular rhythm, NOT FOUND: murmur Abdomen (brief) Abdominal Brief: FOUND: distended, soft, NOT FOUND: tender Integumentary (brief) Integumentary Brief: FOUND: dry, pink, warm Comments Skin tear to bilateral upper extremity Coccyx wound Neurologic (brief) Neurological Brief: FOUND: cranial 2-12 intact Neurologic RN Documented GCS Eye Opening: Verbal: Motor: Total: Psychiatric (brief) FOUND: alert, attentive, normal affect, oriented Laboratory Laboratory Tests Test 11/04/16 15:35 White Blood Count 3.0T/MM3 Red Blood Count 2.25M/MM3 Hemoglobin 6.7GM/DL Hematocrit 20.4% Mean Corpuscular Volume 90.7UM3 Mean Corpuscular Hemoglobin 29.8UUG Mean Corpuscular Hemoglobin Concent 32.8GM/DL RDW Standard Deviation 42.3FL Platelet Count 114T/MM3 Mean Platelet Volume 8.7UM3 Immature Granulocyte % (Auto) 0.3% Neutrophils (%) (Auto) 55.3% Lymphocytes (%) (Auto) 28.6% Monocytes (%) (Auto) 14.1% Eosinophils (%) (Auto) 1.0% Basophils (%) (Auto) 0.7% Absolute Immature Granulocyte (auto 0.01T/MM3 Absolute Neutrophils (auto) 1.6T/MM3 Absolute Lymphocytes (auto) 0.9T/MM3 Absolute Monocytes (auto) 0.4T/MM3 Absolute Eosinophils (auto) 0.0T/MM3 Absolute Basophils (auto) 0.0T/MM3 Prothromb Time International Ratio 1.12 Turbidity < 20 Sodium Level 139MEQ/L Potassium Level 4.5MEQ/L Chloride Level 103MEQ/L Carbon Dioxide Level 24MEQ/L Anion Gap 12MEQ/L Creatinine 1.6MG/DL Glomerular Filtration Rate Calc 42 BUN/Creatinine Ratio 32RATIO Glucose Level 121MG/DL Calculated Osmolality 283MOSM/KG Calcium Level 9.1MG/DL Magnesium Level 2.1MG/DL Total Bilirubin 1.10MG/DL Icterus Index < 2 Aspartate Amino Transf (AST/SGOT) 40U/L Alanine Aminotransferase (ALT/SGPT) 45U/L Alkaline Phosphatase 199U/L Ammonia 11UMOL/L Lactate Dehydrogenase 425U/L Total Protein 5.2G/DL Albumin 3.1G/DL Globulin 2.1G/DL Albumin/Globulin Ratio 1.5RATIO Chemistry Specimen Hemolysis < 15 Assessment & Plan Problems: (1) Weakness (2) Elevated troponin Status: Acute Assessment & Plan: Trop at [facility]- 0.23. 11/04/16 (3) Anemia Status: Acute (4) Cirrhosis Status: Chronic Qualifiers: Ascites presence: with ascites (5) Fall at home Status: Acute Assessment & Plan: 11/01/16 (6) Wound of buttock Status: Acute Qualifiers: Encounter type: initial encounter (7) Skin tear Status: Acute Assessment & Plan: Bilateral upper ext (8) Coronary artery disease Status: Chronic (9) Hypertension Status: Chronic (10) Type II diabetes mellitus Status: Chronic (11) CKD (chronic kidney disease) Status: Chronic (12) Hypothyroidism Status: Chronic (13) Personal history of prostate cancer Status: Resolved Plan/Intensity of Service Admit patient to outpatient observation under the care of Dr. Cantu for weakness, anemia, cirrhosis. On arrival. Will recheck the following laboratory studies, CBC, CMP, ammonia, LDH, magnesium, INR, type and screen, urinalysis. Recheck hemoglobin on arrival to [facility] was low down at 6.7. Type and screen and Crossmatch obtained. Will give patient 1 unit of packed red blood cells. Will monitor Accu-Cheks carefully given his known history of diabetes. Will recheck a serial troponin. Given that patient was slightly elevated at [facility] emergency room. At this point Abdomen is not significantly distended and ascites appears to be mild to moderate. Patient does not feel that ascites is to the point that he needs a paracentesis. He has received a paracentesis the past 2 weeks paracentesis, Just over 5 Liters was removed each time. Home medications have not yet been reconciled. Will recheck CBC and BMP tomorrow to follow blood counts, renal function and electrolytes Again we did discuss advanced rectus and patient does verify he wants to be a do not resuscitate, this orders written. Discuss further orders and plan of care with attending, Dr. Cantu. At time of discharge medical care will return to primary care provider. Dr. Bardales DVT Prophylaxis: SCD'S Code Status Do Not Resuscitate Hospital Course Summary Disclaimer The hospital course summary below is not to be considered part of the above Progress Note. Hospital Course Summary 11/04 Admit patient to outpatient observation under the care of Dr. Cantu for weakness, anemia, cirrhosis. On arrival. Will recheck the following laboratory studies, CBC, CMP, ammonia, LDH, magnesium, INR, type and screen, urinalysis. Recheck hemoglobin on arrival to [facility] was low down at 6.7. Type and screen and Crossmatch obtained. Will give patient 1 unit of packed red blood cells. Will monitor Accu-Cheks carefully given his known history of diabetes. Will recheck a serial troponin. Given that patient was slightly elevated at [facility]'s emergency room. At this point Abdomen is not significantly distended and ascites appears to be mild to moderate. Patient does not feel that ascites is to the point that he needs a paracentesis. He has received a paracentesis the past 2 weeks paracentesis, Just over 5 Liters was removed each time. Home medications have not yet been reconciled. Will recheck CBC and BMP tomorrow to follow blood counts, renal function and electrolytes Again we did discuss advanced rectus and patient does verify he wants to be a do not resuscitate, this orders written. Discuss further orders and plan of care with attending, Dr. Cantu. At time of discharge medical care will return to primary care provider. CHANA Squires MD 11/04/16 1800: Past Medical History Current Medications Home Meds Reported Medications [Potassium ] No Conflict Check, 99 MG PO DAILY 10/28/16 Insulin Aspart (Novolog Flexpen) 1 Unit Pen, 8 SQ BID, SYRINGE 10/14/16 Dimethicone/Latrell/Vit A,C,E/Martin (Gold Burrell Ult Diabetic Cream) 96 Gm Cream..g., 1 APPLIC TD PRN 08/17/16 Clobetasol Propionate/Emoll (Clobetasol Emollient 0.05% Crm) 15 Gm Cream..g., 1 APPLIC TD BID 08/17/16 Insulin Glargine,Hum.rec.anlog (Lantus Solostar) 1 Unit Pen, 8 UNIT SQ DAILY, # 15 05/05/16 Aspirin *EC* (Low Dose Aspirin EC) 81 Mg Tablet.dr, 1 TAB PO DAILY, #30 TAB 3 Refills 04/12/16 Furosemide (Furosemide) 40 Mg Tablet, 1 TAB PO DAILY, TAB 04/12/16 Spironolactone (Spironolactone) 50 Mg Tablet, 50 MG PO DAILY, TAB 04/12/16 Tamsulosin HCl (Tamsulosin HCl) 0.4 Mg Cap.er.24h, 0.4 MG PO DAILY, CAP Take 1 capsule, by mouth, 1 time a day (at BEDTIME). 04/12/16 Nitroglycerin (Nitroglycerin) 0.4 Mg Tab.subl, 0.4 MG SL Y for CHEST TIGHTNESS, TAB 04/12/16 Magnesium Oxide (Magnesium) 400 Mg Capsule, 1 TAB PO DAILY, CAP 12/30/14 Omeprazole (Omeprazole) 20 Mg Tablet.dr, 40 MG PO DAILY, TAB Take 1 tablet, by mouth, one time a day with breakfast. 12/30/14 Cyanocobalamin (Vitamin B-12) 1,000 Mcg Tablet, 1000 MCG PO DAILY 12/12/11 Ferrous Sulfate (Ferrous Sulfate) 324 Mg Tablet, 324 MG PO DAILY 09/08/11 Levothyroxine Sodium (Synthroid) 75 Mcg Tablet, 75 MCG PO DAILY 09/08/11 Calcium Carbonate/Vitamin D3 (Calcium + D 600 Mg Tablet) 1 Tab Tablet, 1 TAB PO DAILY 02/03/09 Metformin Hcl (Metformin Hcl) 1,000 Mg Tablet, 500 MG PO BID instructed not to take metformin evening before OR 02/03/09 Allergies: Coded Allergies: atorvastatin (Verified Allergy, Unknown, 10/28/16) erythromycin base (Unverified Allergy, Unknown, 10/28/16) morphine (Verified Allergy, Unknown, HALLUCINATIONS, 10/28/16) Penicillins (Verified Adverse Reaction, Unknown, 10/28/16) Assessment & Plan Plan/Intensity of Service Have independently interviewed and examined pt. Chart reviewed. Case discussed with my ASSISTANT PORTFOLIO MANAGER. Care plan developed with my supervision; agree with above. Feeling more weak and unsteady this week. Feel on the 16; harder to get around after that. Was to have paracentesis today, but to weak and unsteady to get to apt. Presents to [facility] ED in [place] - hemoglobin found to be 2 points lower that where it usually runs. Pt note some SOA but not significant cough or congestion. No chest pain or pressure. Ab not quite as swollen at this time as it is prior to previous times for paracentesis. Lungs: decreased, no distress CV: regular AB: soft, distended with ascitics but not tense. BS present MSE: awake alert appropriate Plan: OBS. Will transfuse as hemoglobin 6.7 - likely will help decrease his fatigue and weakness and may also help increase oncotic drive to minimize ascitics. SCD for DVT prevention - avoid anticoagulants due to anemia. Monitor sugars. PT to help strength. Possible need paracentesis in near future. BELKIS BRADY APRN November 04, 2016 16:50 CHANA CATNU MD November 04, 2016 18:00
--- NOTE | 2016-11-04 18:36 | NUR ---
admit Pt to room via EMS at 1430 direct from [facility]. Pt A/O x3, V/S taken and stable on RA. Called Shelby from wound team to address skin tears, dressed. Pt denies pain at this time. Ambulates with 1x assist. Labs drawn after IV site established, needing blood, Consent signed.
[2016-11-04 20:00] VITALS: RESP 18
[2016-11-05] VITALS: BP 107/63; PULSE 68; RESP 18; TEMP 98.4; O2SAT 96
[2016-11-05 01:19] LABS: HGB - HEMOGLOBIN 7.3 GM/DL (13.5-17.5)
[2016-11-05] MEDS ORDERED: ACETAMINOPHEN/CODEINE 300mg/30mg TABLET PO PRN (05:45)
--- NOTE | 2016-11-05 06:03 | NUR ---
SUMMARY PT HAS RECEIVED 2 UNITS OF BLOOD, HAS HAD NO S/S OF ADVERSE REACTION. BP HAS BEEN ON THE LOW SIDE BUT HAS REMAINED STABLE. PT STATED THAT HIS BP ALWAYS RUNS LOW. REPORTED PAIN AT 6/10 IN HIS BACK, HE STATED ITS A CHRONIC PAIN AND HE TAKES TYL #3 FOR IT AT HOME, REGULAR TYLENOL WAS TRIED AND INEFFECTIVE. [facility] NOTIFIED AND GAVE ORDER FOR TYL #3 Q6H NEEDED FOR PAIN.
[2016-11-05 08:00] VITALS: BP 105/54; PULSE 53; RESP 16; TEMP 97.8; O2SAT 96
[2016-11-05 08:20] LABS: HGB - HEMOGLOBIN 7.9 GM/DL (13.5-17.5)
[2016-11-05 09:32] LABS: BLOOD, URINE NEGATIVE (NEGATIVE); COLOR,URINE YELLOW (YELLOW); LEUKOCYTE ESTERASE ,URINE NEGATIVE (NEGATIVE); NITRITE,URINE NEGATIVE (NEGATIVE); UROBILINOGEN,URINE 0.2 EU/DL (NORMAL)
[2016-11-05] MEDS: FUROSEMIDE 40 MG TABLET PO SCH (10:26)
[2016-11-05] MEDS: METFORMIN 500 MG TABLET PO SCH ×2 (10:26→17:41)
[2016-11-05] MEDS: MAGNESIUM OXIDE 400 MG TABLET PO SCH (10:26)
[2016-11-05] MEDS: CALCIUM 600mg + VIT D 400 TABLET PO SCH (10:26)
[2016-11-05] MEDS: LEVOTHYROXINE 75 MCG TABLET PO SCH (10:27)
[2016-11-05] MEDS: INSULIN GLARGINE 100 UNIT/ML SQ SCH (10:27)
[2016-11-05] MEDS: SPIRONOLACTONE 50 MG TABLET PO SCH (10:27)
[2016-11-05] MEDS: TAMSULOSIN 0.4 MG CAPSULE PO SCH (10:27)
[2016-11-05] MEDS: FERROUS SULFATE 324 MG TABLET PO SCH (10:27)
[2016-11-05] MEDS: OMEPRAZOLE 20 MG CAPSULE PO SCH (10:28)
--- NOTE | 2016-11-05 10:49 | NUR ---
MEGHAN CM VISITED PT. CM EXPLAINED ROLE AND PROVIDED CONTACT INFORMATION. PT DENIES NEEDS. PT PLANS TO RETURN HOME POST HOSPITAL STAY. PT DAUGHTER IS HIS SUPPORT ANS WILL ASSIST WITH ANY NEEDS. PT IS AWARE TO CONTACT CM IF NEEDS ARISE.
--- NOTE | 2016-11-05 11:51 | PNPDOC ---
Subjective Date DATE: 11/05/16 TIME: 11:42 Subjective Patient seen and examined in his room. Family at the bedside. Questions answered. Patient has a history of liver failure and requires repeat paracentesis with large volume removal and albumin replacement approximately every week. This began back in April 2016. His welding process specialist is Dr. Mcgrath of [facility]. His primary care physician is Dr. Shaji Bardales in [facility]. He has an appointment with Dr. Bardales on Monday to discuss home health versus hospice. I did have a lengthy discussion with him concerning the possibility of placing a Pleurx catheter due to his frequent need for paracentesis. This can be managed much more conveniently at home with home health. Context: He has rapid abdominal expansion secondary to ascites Objective Vital Signs Vital signs Vital Signs 11/05/16 00:00 Temp 98.4 Pulse 68 Resp 18 B/P 107/63 Pulse Ox 96 O2 Delivery Room Air Telemetry Rhythm: Sinus Rhythm Height (Feet): 5 Height (Inches): 10.00 Weight (Kilograms): 75.500 General General Appearance: Alert, Orientated x 3, Cooperative, No Acute Distress Eyes (Brief) Eyes: FOUND: EOMI, PERRL, NOT FOUND: scleral icterus Neck (Brief) Neck Brief: NOT FOUND: JVD, adenopathy, carotid bruits, thyromegaly Respiratory (Brief) Respiratory Brief: FOUND: clear all carson, equal bilaterally, NOT FOUND: rales , wheezes Cardiovascular (Brief) Cardiac: FOUND: murmur (2/6 systolic murmur), regular rate, regular rhythm, NOT FOUND: gallop, pedal edema Abdomen (Brief) Abdominal: FOUND: BS normo active x4, distended (large amount of ascites), soft Extremities (Brief) Extremity : Extremity Finding: NOT FOUND: edema Lymphatic (Brief) Lymphatic Brief: NOT FOUND: adenopathy, lymphedema Musculoskeletal (Brief) Musculoskeletal Brief: NOT FOUND: deformity, loss of motion, spasm, tenderness Integumentary (Brief) Integumentary: NOT FOUND: pink Comments His skin is pale with multiple areas of ecchymoses. Most noted over the left shoulder and upper back Psychiatric (Brief) Psychiatric: FOUND: alert, attentive, normal affect, oriented Laboratory Laboratory Laboratory Tests 11/04/16 15:35 11/05/16 01:09 11/05/16 07:11 Laboratory Tests 11/04/16 15:35 Assessment & Plan Problems: (1) Weakness Status: Acute (2) Elevated troponin Status: Acute Assessment & Plan: Trop at [facility] ER- 0.23. 11/04/16 (3) Anemia Status: Acute Assessment & Plan: He has acute on chronic anemia with an elevated BUN. (4) Cirrhosis Status: Chronic Qualifiers: Hepatic cirrhosis type: unspecified hepatic cirrhosis Ascites presence: with ascites Qualified Codes: K74.60 - Unspecified cirrhosis of liver (5) Fall at home Status: Acute Assessment & Plan: 11/01/16 (6) Wound of buttock Status: Acute Qualifiers: Encounter type: initial encounter (7) Skin tear Status: Acute Assessment & Plan: Bilateral upper ext (8) Coronary artery disease Status: Chronic (9) Hypertension Status: Chronic (10) Type II diabetes mellitus Status: Chronic (11) CKD (chronic kidney disease) Status: Chronic (12) Hypothyroidism Status: Chronic (13) Personal history of prostate cancer Status: Resolved Plan/Intensity of Service Have independently interviewed and examined pt. Chart reviewed. Case discussed with my AUTOMOBILE BODY WORKER. Care plan developed with my supervision; agree with above. Feeling more weak and unsteady this week. Feel on the 16; harder to get around after that. Was to have paracentesis today, but to weak and unsteady to get to apt. Presents to [facility] ED in [place] - hemoglobin found to be 2 points lower that where it usually runs. Pt note some SOA but not significant cough or congestion. No chest pain or pressure. Ab not quite as swollen at this time as it is prior to previous times for paracentesis. Lungs: decreased, no distress CV: regular AB: soft, distended with ascitics but not tense. BS present MSE: awake alert appropriate Plan: OBS. Will transfuse as hemoglobin 6.7 - likely will help decrease his fatigue and weakness and may also help increase oncotic drive to minimize ascitics. SCD for DVT prevention - avoid anticoagulants due to anemia. Monitor sugars. PT to help strength. Possible need paracentesis in near future. Code Status Do Not Resuscitate Hospital Course Summary Disclaimer The hospital course summary below is not to be considered part of the above Progress Note. Hospital Course Summary 11/04 Admit patient to outpatient observation under the care of Dr. Cantu for weakness, anemia, cirrhosis. On arrival. Will recheck the following laboratory studies, CBC, CMP, ammonia, LDH, magnesium, INR, type and screen, urinalysis. Recheck hemoglobin on arrival to [facility] was low down at 6.7. Type and screen and Crossmatch obtained. Will give patient 1 unit of packed red blood cells. Will monitor Accu-Cheks carefully given his known history of diabetes. Will recheck a serial troponin. Given that patient was slightly elevated at [facility] emergency room. At this point Abdomen is not significantly distended and ascites appears to be mild to moderate. Patient does not feel that ascites is to the point that he needs a paracentesis. He has received a paracentesis the past 2 weeks paracentesis, Just over 5 Liters was removed each time. Home medications have not yet been reconciled. Will recheck CBC and BMP tomorrow to follow blood counts, renal function and electrolytes Again we did discuss advanced rectus and patient does verify he wants to be a do not resuscitate, this orders written. Discuss further orders and plan of care with attending, Dr. Cantu. At time of discharge medical care will return to primary care provider. Dr. Bardales 11/05/2016: Patient seen and examined and history reviewed. He requires large volume paracentesis with albumin replacement every 1-2 weeks. He has worsening anemia and has required transfusion. I will obtain a general surgery consultation to consider placement of a Pleurx catheter. RAMANA WAGONER DO November 05, 2016 11:45
[2016-11-05 16:29] VITALS: BP 109/57; PULSE 62; RESP 14; TEMP 98; O2SAT 98
--- NOTE | 2016-11-05 20:21 | NUR ---
status Pt A/O x3, V/S stable on RA. Pt eating and drinking well, no N/V. Urine output good for shift, no BM yet today, did give 1x dose of MOM to help. Pt stated pain better after AM dose of PRN pain meds this morning, denied need for any other dose this shift. Ambulates with 1x assist and walker, no SOA or dizziness.
[2016-11-05 20:45] VITALS: RESP 16
[2016-11-05 23:46] VITALS: BP 111/61; PULSE 59; RESP 12; TEMP 98.3; O2SAT 96
--- NOTE | 2016-11-06 05:00 | NUR ---
SUMMARY PT A&O X3, AMBULATES WITH ONE ASSIST. DENIES NEED FOR PAIN MEDICATION. HAS HAD NO SIGNIFICANT EVENTS TONIGHT.
[2016-11-06] MEDS: OMEPRAZOLE 20 MG CAPSULE PO SCH (05:55)
[2016-11-06] MEDS: LEVOTHYROXINE 75 MCG TABLET PO SCH (05:56)
[2016-11-06 05:58] LABS: EOSINOPHILS # (AUTO) 0.1 T/MM3 (0-0.5); EOSINOPHILS % (AUTO) 2.4 % (0-4); HCT - HEMATOCRIT 25.8 % (41-53); HGB - HEMOGLOBIN 8.5 GM/DL (13.5-17.5); LYMPHOCYTES % (AUTO) 34.2 % (23-45); MEAN CORPUSCULAR HGB 29.1 UUG (26-34); MEAN CORPUSCULAR HGB CONC(MCHC 32.9 GM/DL (31-37); MEAN CORPUSCULAR VOLUME 88.4 UM3 (80-100); MEAN PLATELET VOLUME 8.9 UM3 (9.4-12.4); MONOCYTES # (AUTO) 0.4 T/MM3 (0-0.8); MONOCYTES % (AUTO) 12.5 % (0-9.0); NEUTROPHILS #(AUTO)-ABSOLUTE 1.5 T/MM3 (1.8-7.7); NEUTROPHILS % (AUTO) 50.9 % (33-66); RED BLOOD COUNT 2.92 M/MM3 (4.50-5.90)
[2016-11-06 06:01] LABS: INR 1.14 (0.77-1.03); PROTHROMBIN TIME 12.5 SEC (9.48-12.52)
[2016-11-06 06:08] LABS: ALBUMIN 2.8 G/DL (3.5-5.0); ALBUMIN/GLOBULIN RATIO 1.4 RATIO (1.1-2.2); ALKALINE PHOSPHATASE 193 U/L (38-126); ALT (SGPT) 48 U/L (21-72); ANION GAP 8 MEQ/L (5-15); AST (SGOT) 41 U/L (17-59); BUN/CREATININE RATIO 29 RATIO (6-26); CALCIUM 8.7 MG/DL (8.4-10.2); CHLORIDE 101 MEQ/L (98-107); CO2 - CARBON DIOXIDE 27 MEQ/L (22-30); CREATININE 1.3 MG/DL (0.8-1.5); GLOMERULAR FILTRATION RATE 53; GLUCOSE 114 MG/DL (75-110); POTASSIUM 4.7 MEQ/L (3.6-5); SODIUM 136 MEQ/L (134-144); TOTAL PROTEIN 4.8 G/DL (6.3-8.2)
[2016-11-06 07:30] VITALS: BP 109/58; PULSE 55; RESP 16; TEMP 96.7; O2SAT 99
[2016-11-06] MEDS: MAGNESIUM OXIDE 400 MG TABLET PO SCH (08:32)
[2016-11-06] MEDS: SPIRONOLACTONE 50 MG TABLET PO SCH (08:32)
[2016-11-06] MEDS: METFORMIN 500 MG TABLET PO SCH ×2 (08:32→18:23)
[2016-11-06] MEDS: INSULIN GLARGINE 100 UNIT/ML SQ SCH (08:32)
[2016-11-06] MEDS: CALCIUM 600mg + VIT D 400 TABLET PO SCH (08:32)
[2016-11-06] MEDS: FUROSEMIDE 40 MG TABLET PO SCH (08:32)
[2016-11-06] MEDS: TAMSULOSIN 0.4 MG CAPSULE PO SCH (08:32)
[2016-11-06] MEDS: FERROUS SULFATE 324 MG TABLET PO SCH (08:32)
--- NOTE | 2016-11-06 11:34 | PNPDOC ---
BELKIS BRADY V POT FIREMAN 11/06/16 1134: Subjective Date DATE: 11/06/16 TIME: 11:32 Subjective Mr Stratton is seen this morning while resting in bed. He is alert and pleasant and in no acute distress. Reports having left arm soreness from his previous fall however no other acute pain. Denies shortness of breath or GI complaints.He feels abdominal ascites is unchanged from yesterday. Appetite is good. Objective Vital Signs Vital signs Vital Signs Date Time Temp Pulse Resp B/P Pulse Ox O2 Delivery O2 Flow Rate FiO2 11/06/16 07:30 96.7 55 16 109/58 99 Room Air Telemetry Rhythm: Sinus Rhythm Height (Feet): 5 Height (Inches): 10.00 Weight (Kilograms): 76.700 General General Appearance: Alert, Orientated x 3, Cooperative, No Acute Distress Eyes (Brief) Eyes: FOUND: EOMI ENMT (Brief) ENMT: FOUND: mucosa moist, normal dentition, NOT FOUND: pharnyx erythema Neck (Brief) Neck: FOUND: midline, NOT FOUND: adenopathy, carotid bruits, tracheal deviation Respiratory (Brief) Respiratory: FOUND: clear all carson, equal bilaterally, NOT FOUND: wheezes Cardiovascular (Brief) Cardiac: FOUND: regular rate, regular rhythm, NOT FOUND: murmur, pedal edema Capillary Refill: <2 sec Abdomen (Brief) Abdominal: FOUND: BS normo active x4, soft, NOT FOUND: distended, tender Extremities (Brief) Extremity : Side: Left Extremity: arm (eccomysis) Lymphatic (Brief) Lymphatic: NOT FOUND: adenopathy Musculoskeletal (Brief) Musculoskeletal: NOT FOUND: tenderness Integumentary (Brief) Integumentary: FOUND: dry, pink, warm Neurologic (Brief) Neurological: FOUND: cranial 2-12 intact Psychiatric (Brief) Psychiatric: FOUND: alert, attentive, normal affect, oriented Laboratory Laboratory Laboratory Tests 11/04/16 15:35 11/06/16 05:03 Laboratory Tests 11/04/16 15:35 11/05/16 01:09 11/05/16 07:11 11/06/16 05:02 Assessment & Plan Problems: (1) Weakness Status: Acute (2) Elevated troponin Status: Acute Assessment & Plan: Trop at [facility] ER- 0.23. 11/04/16 (3) Anemia Status: Acute Assessment & Plan: He has acute on chronic anemia with an elevated BUN. (4) Cirrhosis Status: Chronic Qualifiers: Hepatic cirrhosis type: unspecified hepatic cirrhosis Ascites presence: with ascites Qualified Codes: K74.60 - Unspecified cirrhosis of liver (5) Fall at home Status: Acute Assessment & Plan: 11/01/16 (6) Wound of buttock Status: Acute Qualifiers: Encounter type: initial encounter (7) Skin tear Status: Acute Assessment & Plan: Bilateral upper ext (8) Coronary artery disease Status: Chronic (9) Hypertension Status: Chronic (10) Type II diabetes mellitus Status: Chronic (11) CKD (chronic kidney disease) Status: Chronic (12) Hypothyroidism Status: Chronic (13) Personal history of prostate cancer Status: Resolved Plan/Intensity of Service 11/06/16 Mr Stratton continues to have abdominal ascites. He will likely benefit from a paracentesis tomorrow with radiology. Will again discuss with general surgeon regarding possible placement of Pleurx catheter. This may need to be done in the outpatient setting. Continue to monitor blood sugars, Fasting BGM this morning was 114. Continue Lantus 8 units daily and metformin. Continue to trend hemoglobin, this morning 8.5. Required blood transfusion of 2 unit. (11/04, 11/05) Stool for occult blood was positive. Likely the cause of anemia. Troponin has trended down. Asymptomatic elevation without chest pain. Recheck CBC and BMP tomorrow morning to follow blood counts renal function and electrolytes. Will discuss further plan and orders with attending, Dr Wagoner (Covering hospitalist). Code Status Do Not Resuscitate Hospital Course Summary Disclaimer The hospital course summary below is not to be considered part of the above Progress Note. Hospital Course Summary 11/04 Admit patient to outpatient observation under the care of Dr. Cantu for weakness, anemia, cirrhosis. On arrival. Will recheck the following laboratory studies, CBC, CMP, ammonia, LDH, magnesium, INR, type and screen, urinalysis. Recheck hemoglobin on arrival to [facility] was low down at 6.7. Type and screen and Crossmatch obtained. Will give patient 1 unit of packed red blood cells. Will monitor Accu-Cheks carefully given his known history of diabetes. Will recheck a serial troponin. Given that patient was slightly elevated at [facility] emergency room. At this point Abdomen is not significantly distended and ascites appears to be mild to moderate. Patient does not feel that ascites is to the point that he needs a paracentesis. He has received a paracentesis the past 2 weeks paracentesis, Just over 5 Liters was removed each time. Home medications have not yet been reconciled. Will recheck CBC and BMP tomorrow to follow blood counts, renal function and electrolytes Again we did discuss advanced rectus and patient does verify he wants to be a do not resuscitate, this orders written. Discuss further orders and plan of care with attending, Dr. Cantu. At time of discharge medical care will return to primary care provider. Dr. Bardales 11/05/2016: Patient seen and examined and history reviewed. He requires large volume paracentesis with albumin replacement every 1-2 weeks. He has worsening anemia and has required transfusion. I will obtain a general surgery consultation to consider placement of a Pleurx catheter. 11/06/16 Mr Stratton continues to have abdominal ascites. He will likely benefit from a paracentesis tomorrow with radiology. Will again discuss with general surgeon regarding possible placement of Pleurx catheter. This may need to be done in the outpatient setting. Continue to monitor blood sugars, Fasting BGM this morning was 114. Continue Lantus 8 units daily and metformin. Continue to trend hemoglobin, this morning 8.5. Required blood transfusion of 2 unit. (11/04, 11/05) Stool for occult blood was positive. Likely the cause of anemia. Troponin has trended down. Asymptomatic elevation without chest pain. Recheck CBC and BMP tomorrow morning to follow blood counts renal function and electrolytes. Will discuss further plan and orders with attending, Dr Wagoner (Covering hospitalist). RAMANA WAGONER DO 11/06/16 1356: Assessment & Plan Hospital Course Summary Hospital Course Summary 11/06/2016 Note reviewed and agree. Patient seen and examined for the hospitalist group. I discussed the possibility and benefit of placement of a Pleurx catheter versus simple ultrasound-guided paracentesis. The patient and his family are amenable to placement of a Pleurx catheter. Dr. Aguilera is currently ill and will not be available to perform this. I have placed an order for a interventional radiology to perform paracentesis and placement of a Pleurx catheter. If they cannot or will not place a Pleurx catheter we will also have a paracentesis with high-volume removal performed and plan for Pleurx catheter placement as an outpatient. BELKIS BRADY APRN November 06, 2016 11:34 RAMANA WAGONER DO November 06, 2016 13:56
[2016-11-06 15:11] VITALS: PULSE 55; RESP 16; O2SAT 99
[2016-11-06 15:25] VITALS: BP 114/65; PULSE 66; RESP 16; TEMP 96.5; O2SAT 99
--- NOTE | 2016-11-06 18:35 | NUR ---
status Pt A/O x3, V/S stable on RA. Pt denies need for any PRN pain meds today. Ambulating well with 1x assist to bathroom. Urine output good for shift, BM today. Eating and drinking well, no N/V. Pt aware that he will be NPO after midnight. No new complaints at this time.
--- NOTE | 2016-11-06 20:00 | NUR ---
resp crackles bases, denies dyspnea at rest
--- NOTE | 2016-11-06 22:00 | NUR ---
intake requests sandwich and sugar free jello, prior to NPO status
[2016-11-07] VITALS (11 sets, daily range): BP systolic 105–122; BP diastolic 54–63; PULSE 60–73; RESP 14–26; TEMP 96.3–96.6; O2SAT 97–100
[2016-11-07 04:56] LABS: BASOPHILS % (AUTO) 0.3 % (0-2); EOSINOPHILS # (AUTO) 0.1 T/MM3 (0-0.5); HCT - HEMATOCRIT 26.4 % (41-53); HGB - HEMOGLOBIN 8.7 GM/DL (13.5-17.5); LYMPHOCYTES # (AUTO) 1.2 T/MM3 (1-4.8); LYMPHOCYTES % (AUTO) 32.5 % (23-45); MEAN CORPUSCULAR HGB 29.1 UUG (26-34); MEAN CORPUSCULAR VOLUME 88.3 UM3 (80-100); MEAN PLATELET VOLUME 8.6 UM3 (9.4-12.4); MONOCYTES # (AUTO) 0.4 T/MM3 (0-0.8); MONOCYTES % (AUTO) 11.6 % (0-9.0); NEUTROPHILS #(AUTO)-ABSOLUTE 1.9 T/MM3 (1.8-7.7); NEUTROPHILS % (AUTO) 52.6 % (33-66); RED BLOOD COUNT 2.99 M/MM3 (4.50-5.90); WBC - WHITE BLOOD COUNT 3.6 T/MM3 (4.5-11.0)
[2016-11-07 05:01] LABS: INR 1.1 (0.77-1.03); PROTHROMBIN TIME 12.1 SEC (9.48-12.52)
[2016-11-07 05:10] LABS: ANION GAP 8 MEQ/L (5-15); BUN/CREATININE RATIO 28 RATIO (6-26); CALCIUM 8.6 MG/DL (8.4-10.2); CHLORIDE 100 MEQ/L (98-107); CO2 - CARBON DIOXIDE 26 MEQ/L (22-30); CREATININE 1.2 MG/DL (0.8-1.5); GLOMERULAR FILTRATION RATE 58; GLUCOSE 119 MG/DL (75-110); POTASSIUM 4.4 MEQ/L (3.6-5); SODIUM 134 MEQ/L (134-144)
--- NOTE | 2016-11-07 06:02 | NUR ---
rest sleeps for long intervals, resp. unlabored at rest. Repositions self for comfort
[2016-11-07] MEDS: OMEPRAZOLE 20 MG CAPSULE PO SCH (06:33)
[2016-11-07] MEDS: LEVOTHYROXINE 75 MCG TABLET PO SCH (06:33)
--- NOTE | 2016-11-07 06:35 | NUR ---
MEDS HAS BEEN NPO SINCE MIDNIGHT. A.M. MEDS GIVEN WITH JOHN. JOAQUIN WATER
[2016-11-07] MEDS: SPIRONOLACTONE 50 MG TABLET PO SCH (08:53)
[2016-11-07] MEDS: TAMSULOSIN 0.4 MG CAPSULE PO SCH (08:53)
[2016-11-07] MEDS: MAGNESIUM OXIDE 400 MG TABLET PO SCH (08:53)
[2016-11-07] MEDS: FUROSEMIDE 40 MG TABLET PO SCH (08:53)
[2016-11-07] MEDS: METFORMIN 500 MG TABLET PO SCH (08:53)
[2016-11-07] MEDS: CALCIUM 600mg + VIT D 400 TABLET PO SCH (08:53)
[2016-11-07] MEDS: FERROUS SULFATE 324 MG TABLET PO SCH (08:53)
[2016-11-07] MEDS: INSULIN GLARGINE 100 UNIT/ML SQ SCH (08:54)
[2016-11-07] MEDS ORDERED: NORMAL SALINE 100 ML ONE (09:25)
[2016-11-07] MEDS: ALBUMIN HUMAN 25% 50 ML IV SCH ×4 (09:34→12:42)
--- NOTE | 2016-11-07 11:44 | NUR ---
CM CM IN ROOM PT IS OUT TO PROCEDURE. CM UNDATED WHITEBOARD AND PROVIDED CONTACT INFORMATION.
--- NOTE | 2016-11-07 13:10 | DI ---
Indication:ITS.REASON: large volume ascites Procedure:US GUIDE PARACENTESIS, INITIAL PARACENTESIS: The procedure including the benefits, risks, and alternatives were explained in detail to the patient. All of his questions were answered. He stated that they understood and wished to proceed. Informed consent was obtained. A preprocedural timeout was performed to confirm the correct patient and procedure. Using sterile technique, local xylocaine anesthesia, and sonographic guidance throughout, a paracentesis is done from a right lateral approach. 5000 ml of straw colored fluid was taken off without complication. Following this, the patient was transferred back to his room on the medical floor in good condition. Impression: Successful paracentesis performed with 5 L of fluid removed. Brendan Chappell RPA/ROBINSON performed this under my personal supervision. .
--- NOTE | 2016-11-07 13:46 | PNPDOC ---
BELKIS BRADY V KEG INSPECTOR 11/07/16 1343: Subjective Date DATE: 11/07/16 TIME: 13:40 Subjective Mr Stratton is seen today in follow up . Following his paracentesis in which 5 liters of fluid was removed without complication. Patient is currently feeling much better. He denies having any pain or shortness of breath. No difficulty with urination and bowels are moving regularly. Objective Vital Signs Vital signs Vital Signs Date Time Temp Pulse Resp B/P Pulse Ox O2 Delivery O2 Flow Rate FiO2 11/07/16 12:23 96.4 64 18 113/62 100 Room Air Telemetry Rhythm: Sinus Rhythm Height (Feet): 5 Height (Inches): 10.00 Weight (Kilograms): 77.900 General General Appearance: Alert, Orientated x 3, Cooperative, No Acute Distress Eyes (Brief) Eyes: FOUND: EOMI ENMT (Brief) ENMT: FOUND: mucosa moist, normal dentition, NOT FOUND: pharnyx erythema Neck (Brief) Neck: FOUND: midline, NOT FOUND: adenopathy, carotid bruits, tracheal deviation Respiratory (Brief) Respiratory: FOUND: clear all carson, equal bilaterally, NOT FOUND: wheezes Cardiovascular (Brief) Cardiac: FOUND: regular rate, regular rhythm, NOT FOUND: murmur, pedal edema Capillary Refill: <2 sec Abdomen (Brief) Abdominal: FOUND: BS normo active x4, soft, NOT FOUND: distended, tender Lymphatic (Brief) Lymphatic: NOT FOUND: adenopathy Musculoskeletal (Brief) Musculoskeletal: NOT FOUND: tenderness Integumentary (Brief) Integumentary: FOUND: dry, pink, warm Neurologic (Brief) Neurological: FOUND: cranial 2-12 intact Psychiatric (Brief) Psychiatric: FOUND: alert, attentive, normal affect, oriented Laboratory Laboratory Laboratory Tests 11/06/16 05:03 11/07/16 04:29 Laboratory Tests 11/06/16 05:02 11/07/16 04:29 Assessment & Plan Problems: (1) Weakness Status: Acute (2) Elevated troponin Status: Acute Assessment & Plan: Trop at [facility] ER- 0.23. 11/04/16 (3) Anemia Status: Acute Assessment & Plan: He has acute on chronic anemia with an elevated BUN. (4) Cirrhosis Status: Chronic Qualifiers: Hepatic cirrhosis type: unspecified hepatic cirrhosis Ascites presence: with ascites Qualified Codes: K74.60 - Unspecified cirrhosis of liver (5) Fall at home Status: Acute Assessment & Plan: 11/01/16 (6) Wound of buttock Status: Acute Qualifiers: Encounter type: initial encounter (7) Skin tear Status: Acute Assessment & Plan: Bilateral upper ext (8) Coronary artery disease Status: Chronic (9) Hypertension Status: Chronic (10) Type II diabetes mellitus Status: Chronic (11) CKD (chronic kidney disease) Status: Chronic (12) Hypothyroidism Status: Chronic (13) Personal history of prostate cancer Status: Resolved Plan/Intensity of Service 11/07 Tolerated paracentesis well with 5 Liters of removal. Discussed discharge plan and outpatient follow-up with family, patient as well as surgical team. Post transfusion hemoglobin has remained stable. He will be in today 8.7. Did discuss with patient and family regarding heme positive stools and the need for potential follow-up. Patient verbalizes that he would likely decline a colonoscopy. Asked PT to evaluate patient for safety as patient resides independently at home and uses a walker. Will call primary care provider, Dr. Jann Bardales to discuss hospitalization, findings and discharge plans. Continue here back from Dr. Aguilera's office regarding a follow-up appointment in 1 week for evaluation and discussion of placement of Pleurx drain. Code Status Do Not Resuscitate Hospital Course Summary Disclaimer The hospital course summary below is not to be considered part of the above Progress Note. Hospital Course Summary 11/06/2016 Note reviewed and agree. Patient seen and examined for the hospitalist group. I discussed the possibility and benefit of placement of a Pleurx catheter versus simple ultrasound-guided paracentesis. The patient and his family are amenable to placement of a Pleurx catheter. Dr. Aguilera is currently ill and will not be available to perform this. I have placed an order for a interventional radiology to perform paracentesis and placement of a Pleurx catheter. If they cannot or will not place a Pleurx catheter we will also have a paracentesis with high-volume removal performed and plan for Pleurx catheter placement as an outpatient. 11/07 Tolerated paracentesis well with 5 Liters of removal. Discussed discharge plan and outpatient follow-up with family, patient as well as surgical team. Post transfusion hemoglobin has remained stable. He will be in today 8.7. Did discuss with patient and family regarding heme positive stools and the need for potential follow-up. Patient verbalizes that he would likely decline a colonoscopy. Asked PT to evaluate patient for safety as patient resides independently at home and uses a walker. Will call primary care provider, Dr. Jann Bardales to discuss hospitalization, findings and discharge plans. Continue here back from Dr. Aguilera's office regarding a follow-up appointment in 1 week for evaluation and discussion of placement of Pleurx drain. CHANA BRYANT MD 11/07/16 1436: Assessment & Plan Plan/Intensity of Service Have independently interviewed and examined pt. Chart reviewed. Case discussed with my KEG INSPECTOR. Care plan developed with my supervision; agree with above. Doing well this afternoon-tolerated paracentesis well. No ab pain or nausea. Breathing well. Feels less weak and unsteady since blood transfusion. Did well with therapy. No chest pain or pressure. No f/c. Lungs: clear bilaterally CV: regular AB: soft nt/nd +BS Ext: no edema MSE: awake alert appropriate Plan: Will d/c to home today. F/U with Dr Lee tomorrow for reevaluation. F/U with Dr Aguilera 11/09 for evaluation of possible Pleur-X drain placement. Encourage activities to increase strength. See orders for details. BELKIS BRADY APRN November 07, 2016 13:43 CHANA BRYANT MD November 07, 2016 14:36
[2016-11-07] MEDS ORDERED: ASCO500T9 PO (14:39)
--- NOTE | 2016-11-07 15:25 | NUR ---
PT DISCHARGED HOME FOR SELF CARE. DAUGHTER AND SON TO DRIVE HOME. PT ALERT AND ORIENTED X3. UP WITH STANDBY ASSIST. IV DISCONTINUED. DISCHARGE INSTRUCTIONS EXPLAINED TO PT AND FAMILY. THEY VERBALIZED UNDERSTANDING. DISCHARGE PACKET SENT WITH PT. ESCORTED OUT VIA WHEELCHAIR TO ER ENTRANCE WITH NURSE ASSIST. THANKED PT FOR CHOOSING [facility].
--- NOTE | 2016-11-07 16:08 | DSPDOC ---
BELKIS BRADY V AUTOMATION TECH 11/07/16 1607: General Date Date DATE: 11/07/16 TIME: 16:00 Attending Physician Sami Cantu MD Admitting Physician Sami Cantu MD Consulting Physician Hussain Admitting Diagnosis Anemia, cirrhoisis Discharge Diagnosis Cirrhosis with ascites. Anemia-improved Weakness Fall at home Procedures 11/07/16- Paracentesis under interventional radiology. Patient tolerated well. Laboratory Laboratory Tests Test 11/06/16 05:02 11/06/16 05:03 11/06/16 05:59 11/06/16 11:05 White Blood Count 3.0T/MM3 (4.5-11.0) Red Blood Count 2.92M/MM3 (4.50-5.90) Hemoglobin 8.5GM/DL (13.5-17.5) Hematocrit 25.8% (41-53) Mean Corpuscular Volume 88.4UM3 (80-100) Mean Corpuscular Hemoglobin 29.1UUG (26-34) Mean Corpuscular Hemoglobin Concent 32.9GM/DL (31-37) RDW Standard Deviation 45.8FL (36.9-50.2) Platelet Count 110T/MM3 (130-400) Mean Platelet Volume 8.9UM3 (9.4-12.4) Immature Granulocyte % (Auto) 0.0% (0.0-0.5) Neutrophils (%) (Auto) 50.9% (33-66) Lymphocytes (%) (Auto) 34.2% (23-45) Monocytes (%) (Auto) 12.5% (0-9.0) Eosinophils (%) (Auto) 2.4% (0-4) Basophils (%) (Auto) 0.0% (0-2) Absolute Immature Granulocyte (auto 0.00T/MM3 (0.00-0.03) Absolute Neutrophils (auto) 1.5T/MM3 (1.8-7.7) Absolute Lymphocytes (auto) 1.0T/MM3 (1-4.8) Absolute Monocytes (auto) 0.4T/MM3 (0-0.8) Absolute Eosinophils (auto) 0.1T/MM3 (0-0.5) Absolute Basophils (auto) 0.0T/MM3 (0-0.2) Prothromb Time International Ratio 1.14 (0.77-1.03) Turbidity < 20 (0-20) Sodium Level 136MEQ/L (134-144) Potassium Level 4.7MEQ/L (3.6-5) Chloride Level 101MEQ/L (98-107) Carbon Dioxide Level 27MEQ/L (22-30) Anion Gap 8MEQ/L (5-15) Blood Urea Nitrogen 37.0MG/DL (9-20) Creatinine 1.3MG/DL (0.8-1.5) Glomerular Filtration Rate Calc 53 BUN/Creatinine Ratio 29RATIO (6-26) Glucose Level 114MG/DL (75-110) Calculated Osmolality 272MOSM/KG (261-280) Calcium Level 8.7MG/DL (8.4-10.2) Total Bilirubin 1.40MG/DL (0.20-1.30) Icterus Index < 2 (0-7) Aspartate Amino Transf (AST/SGOT) 41U/L (17-59) Alanine Aminotransferase (ALT/SGPT) 48U/L (21-72) Alkaline Phosphatase 193U/L (38-126) Troponin I 0.150ng/ml (0-0.12) Total Protein 4.8G/DL (6.3-8.2) Albumin 2.8G/DL (3.5-5.0) Globulin 2.0G/DL (2.4-3.6) Albumin/Globulin Ratio 1.4RATIO (1.1-2.2) Chemistry Specimen Hemolysis < 15 (0-25) Glucometer 117mg/dL (75-110) 164mg/dL (75-110) Test 11/06/16 17:09 11/07/16 04:29 11/07/16 06:31 11/07/16 12:15 Glucometer 169mg/dL (75-110) 126mg/dL (75-110) 179mg/dL (75-110) White Blood Count 3.6T/MM3 (4.5-11.0) Red Blood Count 2.99M/MM3 (4.50-5.90) Hemoglobin 8.7GM/DL (13.5-17.5) Hematocrit 26.4% (41-53) Mean Corpuscular Volume 88.3UM3 (80-100) Mean Corpuscular Hemoglobin 29.1UUG (26-34) Mean Corpuscular Hemoglobin Concent 33.0GM/DL (31-37) RDW Standard Deviation 44.6FL (36.9-50.2) Platelet Count 111T/MM3 (130-400) Mean Platelet Volume 8.6UM3 (9.4-12.4) Immature Granulocyte % (Auto) 0.0% (0.0-0.5) Neutrophils (%) (Auto) 52.6% (33-66) Lymphocytes (%) (Auto) 32.5% (23-45) Monocytes (%) (Auto) 11.6% (0-9.0) Eosinophils (%) (Auto) 3.0% (0-4) Basophils (%) (Auto) 0.3% (0-2) Absolute Immature Granulocyte (auto 0.00T/MM3 (0.00-0.03) Absolute Neutrophils (auto) 1.9T/MM3 (1.8-7.7) Absolute Lymphocytes (auto) 1.2T/MM3 (1-4.8) Absolute Monocytes (auto) 0.4T/MM3 (0-0.8) Absolute Eosinophils (auto) 0.1T/MM3 (0-0.5) Absolute Basophils (auto) 0.0T/MM3 (0-0.2) Prothromb Time International Ratio 1.10 (0.77-1.03) Turbidity < 20 (0-20) Sodium Level 134MEQ/L (134-144) Potassium Level 4.4MEQ/L (3.6-5) Chloride Level 100MEQ/L (98-107) Carbon Dioxide Level 26MEQ/L (22-30) Anion Gap 8MEQ/L (5-15) Blood Urea Nitrogen 33.0MG/DL (9-20) Creatinine 1.2MG/DL (0.8-1.5) Glomerular Filtration Rate Calc 58 BUN/Creatinine Ratio 28RATIO (6-26) Glucose Level 119MG/DL (75-110) Calculated Osmolality 266MOSM/KG (261-280) Calcium Level 8.6MG/DL (8.4-10.2) Icterus Index < 2 (0-7) Chemistry Specimen Hemolysis < 15 (0-25) Microbiology None Radiology None History of Present Illness Patient is an 81-year-old male who is currently under the primary care of Dr. Jann Bardales in [place]. Patient has a known history of liver cirrhosis and has been undergoing weekly paracentesis since the middle of august. It is reported that on Wednesday 11/01. Patient fell at home after losing his balance. He was evaluated in the [place] emergency room and underwent a CT scan of the head which was negative at that time. He did suffer multiple skin tears and has bruising throughout his entire trunk and arms. He continues to have increased weakness, thus he presented to the [place] emergency room again this morning for further evaluation. There he was found to be anemic with a hemoglobin of 7.5, count of 3.6, RBCs of 2.53, hematocrit 22.4, platelet count 131. Cardiac panel was performed which did reveal slight elevation in troponin at 0.23, CPK 87, CK- MB 2.5. TSH 7.64, ammonia 26. Sodium is 138, potassium 5.1, glucose 131, BUN 50 , creatinine slightly elevated at 2.0. Baseline appears to be at 1.5. A urinalysis is obtained that is unremarkable. Twelve-lead EKG revealed sinus rhythm with first-degree block. Given findings of anemia, accompanied with chronic cirrhosis and likely need of a paracentesis as well as elevated troponin and significant weakness [facility] hospitalist services were contacted and accepted patient for direct admission as an outpatient for further evaluation and treatment. Mr Stratton is seen on arrival to [facility]. He is alert and orientated and reports that he feels generally weak. Reports having increased soreness to left upper ext and multiple areas of ecchymosis on his fall on Wednesday 11/01. Majority of history is obtained from patient's daughter at the bedside. She does state that he was diagnosed with cirrhosis sometime at the end of 2015. It is unclear his cause for cirrhosis. He had had chronic atrial fibrillation and was placed on anticoagulation in the past. At that time he developed a GI bleeding and was hospitalized at [facility] this all took place in 2016. Did discuss advanced directives and patient and daughter both verify patient is a do not resuscitate. Hospital Course 11/06/2016 Note reviewed and agree. Patient seen and examined for the hospitalist group. I discussed the possibility and benefit of placement of a Pleurx catheter versus simple ultrasound-guided paracentesis. The patient and his family are amenable to placement of a Pleurx catheter. Dr. Muñoz is currently ill and will not be available to perform this. I have placed an order for a interventional radiology to perform paracentesis and placement of a Pleurx catheter. If they cannot or will not place a Pleurx catheter we will also have a paracentesis with high-volume removal performed and plan for Pleurx catheter placement as an outpatient. 11/07 Tolerated paracentesis well with 5 Liters of removal. Discussed discharge plan and outpatient follow-up with family, patient as well as surgical team. Post transfusion hemoglobin has remained stable. He will be in today 8.7. Did discuss with patient and family regarding heme positive stools and the need for potential follow-up. Patient verbalizes that he would likely decline a colonoscopy. Asked PT to evaluate patient for safety as patient resides independently at home and uses a walker. Will call primary care provider, Dr. Jann Bardales to discuss hospitalization, findings and discharge plans. Continue here back from Dr. Muñoz's office regarding a follow-up appointment in 1 week for evaluation and discussion of placement of Pleurx drain. 11/07/16-discharge Mr Stratton is seen and examined on day of discharge. He underwent planned paracentesis today and under the care of interventional radiology. Approximately 5 liters was removed. His anemia was corrected. Following blood transfusion on November 04 and November 05. His stools were heme positive for blood. This was discussed with patient and family regarding possible colonoscopy and follow- up with Dr. Muñoz. Patient indicated he would likely not be interested in proceeding with further workup. Arrangements were made and patient does have an appointment scheduled with Dr. Muñoz for November 09 at 1115. At this time. He will be evaluating patient and discussing placement of a Pleurx drain, as patient is currently requiring weekly paracentesis to manage volume of ascites. Patient is scheduled to see his primary care provider, Dr. Bardales in [place] tomorrow 11/08. Patient family plan to discuss options such as home health versus hospice for ongoing management of cirrhosis and Pleurx catheter. This is a general summation of the patients hospital course. Please refer to the medical record if additional detail is needed. Total discharge time greater than 35 minutes Problems: (1) Weakness Status: Acute (2) Elevated troponin Status: Acute Assessment & Plan: Trop at [facility] ER- 0.23. 11/04/16 (3) Anemia Status: Acute Assessment & Plan: He has acute on chronic anemia with an elevated BUN. (4) Cirrhosis Status: Chronic (5) Fall at home Status: Acute Assessment & Plan: 11/01/16 (6) Wound of buttock Status: Acute (7) Skin tear Status: Acute Assessment & Plan: Bilateral upper ext (8) Coronary artery disease Status: Chronic (9) Hypertension Status: Chronic (10) Type II diabetes mellitus Status: Chronic (11) CKD (chronic kidney disease) Status: Chronic (12) Hypothyroidism Status: Chronic (13) Personal history of prostate cancer Status: Resolved Code Status Do Not Resuscitate Home Meds Active Scripts Ascorbic Acid (Vitamin C) 500 Mg Tablet, 500 MG PO WB for Anemia - take with IRON , #100 TAB Prov:SAMI CANTU MD 11/07/16 Reported Medications [Potassium ] No Conflict Check, 99 MG PO DAILY 10/28/16 Insulin Aspart (Novolog Flexpen) 1 Unit Pen, 8 SQ BID, SYRINGE 10/14/16 Dimethicone/Latrell/Vit A,C,E/Martin (Gold Burrell Ult Diabetic Cream) 96 Gm Cream..g., 1 APPLIC TD PRN 08/17/16 Clobetasol Propionate/Emoll (Clobetasol Emollient 0.05% Crm) 15 Gm Cream..g., 1 APPLIC TD BID 08/17/16 Insulin Glargine,Hum.rec.anlog (Lantus Solostar) 1 Unit Pen, 8 UNIT SQ DAILY, # 15 05/05/16 Aspirin *EC* (Low Dose Aspirin EC) 81 Mg Tablet.dr, 1 TAB PO DAILY, #30 TAB 3 Refills 04/12/16 Furosemide (Furosemide) 40 Mg Tablet, 1 TAB PO DAILY, TAB 04/12/16 Spironolactone (Spironolactone) 50 Mg Tablet, 50 MG PO DAILY, TAB 04/12/16 Tamsulosin HCl (Tamsulosin HCl) 0.4 Mg Cap.er.24h, 0.4 MG PO DAILY, CAP Take 1 capsule, by mouth, 1 time a day (at BEDTIME). 04/12/16 Nitroglycerin (Nitroglycerin) 0.4 Mg Tab.subl, 0.4 MG SL Y for CHEST TIGHTNESS, TAB 04/12/16 Magnesium Oxide (Magnesium) 400 Mg Capsule, 1 TAB PO DAILY, CAP 12/30/14 Omeprazole (Omeprazole) 20 Mg Tablet.dr, 40 MG PO DAILY, TAB Take 1 tablet, by mouth, one time a day with breakfast. 12/30/14 Cyanocobalamin (Vitamin B-12) 1,000 Mcg Tablet, 1000 MCG PO DAILY 12/12/11 Ferrous Sulfate (Ferrous Sulfate) 324 Mg Tablet, 324 MG PO DAILY 09/08/11 Levothyroxine Sodium (Synthroid) 75 Mcg Tablet, 75 MCG PO DAILY 09/08/11 Calcium Carbonate/Vitamin D3 (Calcium + D 600 Mg Tablet) 1 Tab Tablet, 1 TAB PO DAILY 02/03/09 Metformin Hcl (Metformin Hcl) 1,000 Mg Tablet, 500 MG PO BID instructed not to take metformin evening before OR 02/03/09 Face to Face Encounter I met with patient on the day of dismissal and discussed follow up appointments , medications, and safety plan. Discharge Disposition stable Copies To 1: EMMY MUÑOZ MD, FACS, CWS Copies To 2: SAMI Romano MD 11/07/16 1631: Hospital Course Home Meds Active Scripts Ascorbic Acid (Vitamin C) 500 Mg Tablet, 500 MG PO WB for Anemia - take with IRON , #100 TAB Prov:SAMI CANTU MD 11/07/16 Reported Medications [Potassium ] No Conflict Check, 99 MG PO DAILY 10/28/16 Insulin Aspart (Novolog Flexpen) 1 Unit Pen, 8 SQ BID, SYRINGE 10/14/16 Dimethicone/Latrell/Vit A,C,E/Martin (Gold Burrell Ult Diabetic Cream) 96 Gm Cream..g., 1 APPLIC TD PRN 08/17/16 Clobetasol Propionate/Emoll (Clobetasol Emollient 0.05% Crm) 15 Gm Cream..g., 1 APPLIC TD BID 08/17/16 Insulin Glargine,Hum.rec.anlog (Lantus Solostar) 1 Unit Pen, 8 UNIT SQ DAILY, # 15 05/05/16 Aspirin *EC* (Low Dose Aspirin EC) 81 Mg Tablet.dr, 1 TAB PO DAILY, #30 TAB 3 Refills 04/12/16 Furosemide (Furosemide) 40 Mg Tablet, 1 TAB PO DAILY, TAB 04/12/16 Spironolactone (Spironolactone) 50 Mg Tablet, 50 MG PO DAILY, TAB 04/12/16 Tamsulosin HCl (Tamsulosin HCl) 0.4 Mg Cap.er.24h, 0.4 MG PO DAILY, CAP Take 1 capsule, by mouth, 1 time a day (at BEDTIME). 04/12/16 Nitroglycerin (Nitroglycerin) 0.4 Mg Tab.subl, 0.4 MG SL Y for CHEST TIGHTNESS, TAB 04/12/16 Magnesium Oxide (Magnesium) 400 Mg Capsule, 1 TAB PO DAILY, CAP 12/30/14 Omeprazole (Omeprazole) 20 Mg Tablet.dr, 40 MG PO DAILY, TAB Take 1 tablet, by mouth, one time a day with breakfast. 12/30/14 Cyanocobalamin (Vitamin B-12) 1,000 Mcg Tablet, 1000 MCG PO DAILY 12/12/11 Ferrous Sulfate (Ferrous Sulfate) 324 Mg Tablet, 324 MG PO DAILY 09/08/11 Levothyroxine Sodium (Synthroid) 75 Mcg Tablet, 75 MCG PO DAILY 09/08/11 Calcium Carbonate/Vitamin D3 (Calcium + D 600 Mg Tablet) 1 Tab Tablet, 1 TAB PO DAILY 02/03/09 Metformin Hcl (Metformin Hcl) 1,000 Mg Tablet, 500 MG PO BID instructed not to take metformin evening before OR 02/03/09 Face to Face Encounter Have independently interviewed and examined pt. Chart reviewed. Case discussed with my AUTOMATION TECH. Care plan developed with my supervision; agree with above. Doing well post paracentesis. Did well with therapy. Breathing well. Strength and stability improved post transfusion. Lungs; Clear CV: regular AB; Soft nt/nd +BS MSE: awake alert appropriate Plan: Will d/c to home. See orders for details. F/U arrangements made. Copies To 1: EMMY MUÑOZ MD, FACS, CWS Copies To 2: BELKIS Griffith APRN November 07, 2016 16:07 SAMI CANTU MD November 07, 2016 16:31
[2016-11-08] MEDS ORDERED: ASCORBIC ACID 500 MG TABLET PO SCH (08:00)
== END 2016-11-07 15:25 | disposition home or self-care (01) | DRG 433 ==
LOC: MED 14:25 → OBSVTOIN 11-06 11:40
PROVIDERS: ADMIT Hospitalist; ATTEND Hospitalist
PROC: 30233N1 Transfusion of Nonautologous Red Blood Cells into Peripheral Vein, Percutaneous Approach (ICD-10-PCS; principal; 2016-11-04)
DX: K74.60 Unspecified cirrhosis of liver (principal); R18.8 Other ascites; D64.9 Anemia, unspecified; R53.1 Weakness; S31.809A Unspecified open wound of unspecified buttock, initial encounter; S41.112A Laceration without foreign body of left upper arm, initial encounter; S41.111A Laceration without foreign body of right upper arm, initial encounter; I12.9 Hypertensive chronic kidney disease with stage 1 through stage 4 chronic kidney disease, or unspecified chronic kidney disease; E11.22 Type 2 diabetes mellitus with diabetic chronic kidney disease; N18.9 Chronic kidney disease, unspecified; Z66 Do not resuscitate; I25.10 Atherosclerotic heart disease of native coronary artery without angina pectoris; I48.91 Unspecified atrial fibrillation; E78.5 Hyperlipidemia, unspecified; E03.9 Hypothyroidism, unspecified; K21.9 Gastro-esophageal reflux disease without esophagitis; Z79.4 Long term (current) use of insulin; Z79.82 Long term (current) use of aspirin; I25.2 Old myocardial infarction; W18.39XA Other fall on same level, initial encounter; Y92.019 Unspecified place in single-family (private) house as the place of occurrence of the external cause; Y99.8 Other external cause status
CPT/HCPCS: 36415; 36430; 80048; 80053; 81003; 82140; 82272; 82948; 83615; 83735; 84484; 85018; 85025; 85610; 86850; 86900; 86901; 86922; 99218

== ENCOUNTER → 2016-11-04 | Outpatient (CLI) | payer MEDICARE, BC ==
[~2016-11-04] MED LIST changes: +ASCO500T9 PO; -FISH1CAP59 PO; +POTASSIUM PO
== END ==
LOC: IMA.BED 08:00
PROVIDERS: ATTEND Radiology Diagnostic Radiology
DX: Z53.8 Procedure and treatment not carried out for other reasons (principal)

== ENCOUNTER 2016-11-10 11:29 | Day surgery (SDC) | payer MEDICARE, BC ==
[~2016-11-10] VITALS: Ht 177.8 cm; Wt 76.7 kg
[~2016-11-10 11:29] MED LIST changes: +ASCO500T9 PO; +LIDOCAINE 1% (10mg/ml) 2ml SDV INJ ONE; +LR 1,000 ML IV SCH
[2016-11-10] MEDS ORDERED: LEVOFLOXACIN 500 mg IVPB 500 MG in D5W 100 ML IV ONE (11:30)
--- OUTSIDE RECORDS SUMMARY | 2016-11-10 11:35 | XMS REPORT | Continuity of Care Document ---
Author Author [facility] Organization [facility] Address Unknown Phone Unavailable Allergies Active Description [...] Penicillins Drug Allergy Unknown . 05/24/2016 Medications Medication Packaging Start Date Stop Date Route Dosage Sig docusate(Dulcolax Stool Softener) 08/10/2015 11/07/2016 Oral 100 mg 100 mg, Oral, Bedtime (once a day), 0 Refill(s) acetaminophen-codeine(acetaminophen-codeine 300 mg-30 mg oral tablet) 1 tabs 11/07/2016 Oral 1 tabs, Oral, BID, PRN: Pain Moderate (4-6), 0 Refill(s) levothyroxine(levothyroxine 75 mcg (0.075 mg) oral tablet) 1 tabs 08/10/2015 11/07/2016 Oral 75 mcg 75 mcg=1 tabs, Oral, Daily, 0 Refill(s) tamsulosin(tamsulosin 0.4 mg oral capsule) 1 caps 08/10/2015 Oral 0.4 mg 0.4 mg=1 caps, Oral, Daily, 0 Refill(s) metFORMIN(metFORMIN 500 mg oral tablet) 2 tabs 08/10/201511/07 Oral 1,000 mg 1,000 mg=2 tabs, Oral, BID, 0 Refill(s) insulin glargine(Lantus Solostar Pen 100 units/mL subcutaneous solution) 08/10/2015 11/07/2016 SubCutaneous 15 units 15 units, SubCutaneous, qAM, 0 Refill(s) omeprazole(omeprazole 40 mg oral delayed release capsule) 1 caps 08/10/2015 11/07/2016 Oral 40 mg 40 mg=1 caps, Oral, Daily, 0 Refill(s) bicalutamide(bicalutamide 50 mg oral tablet) 1 tabs 08/10/2015 11/07/2016 Oral 50 mg 50 mg=1 tabs, Oral, Bedtime (once a day), 0 Refill(s) insulin aspart(NovoLOG FlexPen 100 units/mL subcutaneous solution) 08/10/2015 11/07/2016 SubCutaneous 5 units 5 units, SubCutaneous, BIDAC, before breakfast and dinner, 0 Refill(s) magnesium oxide(magnesium oxide) 08/10/2015 11/07/2016 Oral 400 mg 400 mg, Oral, Daily, 0 Refill(s) ferrous sulfate(ferrous sulfate (as elemental iron) 45 mg oral tablet, extended release) 1 tabs 08/10/2015 11/07/2016 Oral 45 mg 45 mg=1 tabs, Oral, Bedtime (once a day), 30 tabs, 0 Refill(s) metoclopramide(Reglan) 2 mL 08/10/2015 08/15/2015 IV Push 10 mg 10 mg=2 mL, IV Push, q6hr, PRN: Nausea docusate(Colace) 1 caps 08/10/2015 08/15/2015 Oral 100 mg 100 mg=1 caps, Oral, BID nalOXone(Narcan) 1 mL 08/10/2015 08/15/2015 IV Push 0.4 mg 0.4 mg= 1 mL, IV Push, Daily, PRN: Opiate Reversal ondansetron(Zofran) 1 tabs 08/10/2015 08/15/2015 Oral 4 mg 4 mg=1 tabs, Oral, q6hr, PRN: Nausea HYDROmorphone(HYDROmorphone) 08/10/2015 08/15/2015 IV Push 0.5-1 mg, IV Push, q2hr, PRN: Pain Severe (7-10) Sodium Chloride 0.9%(Sodium Chloride 0.9% 1,000 mL) 1,000 mL 08/10/2015 08/14/2015 IV 75 mL/hr, IV polyethylene glycol 3350(MiraLax) 1 packets 08/10/20152015 Oral 17 g 17 g=1 packets, Oral, Daily, PRN: Constipation senna(Senokot) 1 tabs 08/10/2015 08/15/2015 Oral 8.6 mg 8.6 mg=1 tabs, Oral, Daily, PRN: Constipation oxyCODONE-acetaminophen(Percocet 5/325 oral tablet) 08/10/2015 08/15/2015 Oral 1-2 tabs, Oral, q4hr, PRN: Pain Moderate (4-6) polyethylene glycol 3350(MiraLax) 1 packets 08/12/20152015 Oral 17 g 17 g=1 packets, Oral, Daily potassium phosphate(potassium phosphate) 6.67 mL 08/12/2015 IV Piggyback 20 mmol 20 mmol=6.67 mL, 39.17 mL/hr, IV Piggyback, Once enoxaparin(Lovenox) 0.4 mL 08/12/2015 08/15/2015 SubCutaneous 40 mg 40 mg=0.4 mL, SubCutaneous, Bedtime (once a day) potassium chloride(potassium chloride 10 mEq/100 mL intravenous solution) 100 mL 08/13/2015 08/14/2015 IV Piggyback 10 mEq 10 sQo=368 mL, 100 mL/hr, IV Piggyback, q1hr hyaluronidase(hyaluronidase) 1 mL 08/14/2015 08/14/2015 SubCutaneous 150 units 150 units=1 mL, SubCutaneous, Once, PRN: Other (See Comment) polyethylene glycol 3350(MiraLax) 08/14/2015 08/14/2015 Oral 238 g 238 g, Oral, Once potassium chloride(potassium chloride 20 mEq oral tablet, extended release) 2 tabs 08/15/2015 08/15/2015 Oral 40 mEq 40 mEq=2 tabs, Oral, Once clobetasol topical(clobetasol 0.05% topical cream) 1 jackelyn 11/07/2016 Topical 1 jackelyn, Topical, BID, 15 g, 0 Refill(s) furosemide(furosemide 40 mg oral tablet) 1 tabs 11/07/2016 Oral 40 mg 40 mg=1 tabs, Oral, Daily, 90 tabs, 0 Refill(s) tamsulosin(tamsulosin 0.4 mg oral capsule) 1 caps 11/07/2016 Oral 0.4 mg 0.4 mg=1 caps, Oral, Bedtime (once a day), 90 caps, 0 Refill(s) spironolactone(spironolactone 50 mg oral tablet) 1 tabs 11/07/2016 Oral 50 mg 50 mg=1 tabs, Oral, Daily, 30 tabs, 0 Refill(s) nitroglycerin(nitroglycerin 0.4 mg sublingual tablet) 1 tabs 11/07/2016 SubLingual 0.4 mg 0.4 mg=1 tabs, SubLingual, q5min, PRN: as needed for chest pain, 100 tabs, 0 Refill(s) magnesium oxide(magnesium oxide 400 mg (241.3 mg elemental magnesium) oral tablet) 1 tabs 11/07/2016 Oral 400 mg 400 mg=1 tabs, Oral, Daily, 0 Refill(s) omeprazole(omeprazole 20 mg oral delayed release capsule) 1 caps 11/07/2016 11/09/2016 Oral 20 mg 20 mg=1 caps, Oral, Daily, 90 caps, 0 Refill(s ) levothyroxine(levothyroxine 75 mcg (0.075 mg) oral capsule ) 1 caps 11/07/2016 Oral 75 mcg 75 mcg=1 caps, Oral, Daily, 30 caps, 0 Refill(s) ferrous sulfate(ferrous sulfate 325 mg (65 mg elemental iron) oral tablet) 1 tabs 11/07/2016 Oral 325 mg 325 mg=1 tabs, Oral, TID, 0 Refill (s) cyanocobalamin(cyanocobalamin 1000 mcg oral tablet) 1 tabs 11/07/2016 Oral 1,000 mcg 1,000 mcg=1 tabs, Oral, Daily, 90 tabs, 0 Refill(s) metFORMIN(metFORMIN 1000 mg oral tablet) 1 tabs 11/07/2016 Oral 1,000 mg 1,000 mg=1 tabs, Oral, BID, 180 tabs, 0 Refill(s) calcium-vitamin D(calcium (as carbonate)-vitamin D 500 mg- 600 intl units oral tablet) 1 tabs 11/07/2016 Oral 1 tabs, Oral, Daily, 60 tabs, 0 Refill(s) omeprazole(omeprazole 40 mg oral delayed release capsule) 1 caps 11/09/2016 Oral 40 mg 40 mg=1 caps, Oral, Daily, 30 caps, 0 Refill(s) Problems Date Dx Coded Attending Type Code Diagnosis Diagnosed By 08/31/2015 Lizzy Whittaker E03.9 Hypothyroidism, unspecified 08/31/2015 Lizzy Whittaker E11.9 Type 2 diabetes mellitus without complications 08/31/2015 Lizzy Whittaker E87.2 Acidosis 08/31/2015 Lizzy Whittaker E87.6 Hypokalemia 08/31/2015 Lizzy Whittaker I25.10 Atherosclerotic heart disease of [place] coronary artery without angina pect 08/31/2015 Lizzy Whittaker I25.2 Old myocardial infarction 08/31/2015 Lizzy Whittaker K55.9 Vascular disorder of intestine, unspecified 08/31/2015 Lizzy Whittaker K57.30 Diverticulosis of large intestine without perforation or abscess without bl 08/31/2015 Lizzy Whittaker 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 08/31/2015 Lizzy Whittaker Z79.4 nursing home (current) use of insulin 08/31/2015 Lizzy Whittaker Z79.82 nursing home (current) use of aspirin 08/31/2015 Lizzy Whittaker Z85.46 Personal history of malignant neoplasm of prostate 08/31/2015 Lizzy Whittaker Z87.891 Personal history of nicotine dependence 05/24/2016 Silverio Clements MD D50.9 IRON DEFICIENCY ANEMIA, UNSPECIFIED 05/24/2016 Silverio Clements MD D64.9 ANEMIA, UNSPECIFIED 05/24/2016 Silverio Clements MD E03.9 HYPOTHYROIDISM, UNSPECIFIED 05/24/2016 Silverio Clements MD E11.9 TYPE 2 DIABETES MELLITUS WITHOUT COMPLICATIONS 05/24/2016 Silverio Clements MD I25.10 ATHSCL HEART DISEASE OF [place] CORONARY ARTERY W/O 05/24/2016 Silverio Clements MD [...] Procedures Code Description Performed By Performed On [id number] Inspection of Lower Intestinal Tract, Via Natural or Artificial Opening End 08/14/2015 [id number] INSPECTION OF UPPER INTESTINAL TRACT, ENDO Westhoff DO, Val C 05/24/2016 [id number] INSPECTION OF LOWER INTESTINAL TRACT, ENDO Westhoff DO, Val C 05/24/2016 Encounters ACCT No. Visit Date/Time Discharge Status Pt. Type Provider Facility Loc./Unit Complaint [id number] 08/10/2015 21:55:00 2015 15:20:00 DIS Inpatient Lizzy Whittaker [facility] [id number] poss ischemic bowel [id number] 11/10/2016 05:16:06 Document Registration [id number] 11/08/2016 05:16:20 Document Registration [id number] 08/16/2015 05:15:51 Document Registration [id number] 08/15/2015 05:16:52 Document Registration [id number] 08/14/2015 05:16:47 Document Registration [id number] 08/13/2015 05:16:52 Document Registration [id number] 08/11/2015 05:17:38 Document Registration
--- OUTSIDE RECORDS SUMMARY | 2016-11-10 11:36 | XMS REPORT ---
Author Author ALANNA QUIROS [facility] Address Unknown Phone Unavailable Care Team Providers Care Carpet Or Rug Layer Helper Name Role Phone Dr. ABDIAS LOVE Primary [...]
--- OUTSIDE RECORDS SUMMARY | 2016-11-10 11:36 | XMS REPORT | Continuity of Care Document ---
Author Author [facility] Organization [facility] Address Unknown Phone Unavailable Support Name Relationship Address Phone CHANA BRYANT MD Caregiver [address] [place] [address] [place] [address] Unavailable CHANA BRYANT MD Caregiver [address] [place] [address] [place] [address] Unavailable KALEIGHMELISSA "LASHA" Caregiver [address] [place] [address] Unavailable ALVIN GAONA Next Of Kin [address] [id number] Insurance Providers Guarantor Chris Gaona Address [address] [place] [address] Email DENIED 16 [facility] Policy Number [id number] Subscriber's Name Chris Gaona Relationship 18 Self Group Number [id number] Payer Medicare Policy Number [id number] Subscriber's Name Chris Gaona Relationship 18 Self Advance Directives Directive Response Recorded Date/Time Ordered Resuscitation Status Do Not Resuscitate 11/04/16 3:03pm Resuscitation Documents on File Yes 11/04/16 3:03pm DPOA for Healthcare Only Y Chela Trinh, daughter, Alvin Gaona, son 11/04 5:07pm Living Will Yes 11/04/16 3:03pm Problems Active Problems Medical Problem Onset Date Status Acid reflux Unknown Resolved Anemia Unknown Acute CAD (coronary artery disease) Unknown Chronic CKD (chronic kidney disease) Unknown Chronic Chest pain Unknown Resolved Cirrhosis Unknown Chronic Coronary artery disease Unknown Chronic Elevated troponin Unknown Acute Fall at home Unknown Acute Hypertension Unknown Chronic Hypothyroidism Unknown Chronic Personal history of prostate cancer Unknown Resolved Skin tear Unknown Acute Type II diabetes mellitus Unknown Chronic Weakness Unknown Acute Wound of buttock Unknown Acute Medications Current Home Medications Medication Dose Units Route Directions Days Qty Instructions Start Date Ascorbic Acid (Vitamin C) 500 Mg Tablet 500 Mg Oral Give With Breakfast for Anemia - Take With Iron 100 Tablet 11/07/16 Aspirin (Low Dose Aspirin Ec) 81 Mg Tablet. 1 Tab Oral Daily 30 Tablet 04/12/16 Calcium Carbonate/Vitamin D3 (Calcium + D 600 Mg Tablet) 1 Tab Tablet 1 Tab Oral Daily 02/03/09 Clobetasol Propionate/Emoll (Clobetasol Emollient 0.05% Crm) [...] Insulin Aspart (Novolog Flexpen) 1 Unit Pen 8 Sub-Q Twice A Day 10/14/16 Insulin Glargine,Hum.rec.anlog (Lantus Solostar) 1 Unit Pen 8 Unit Sub-Q Daily 15 05/05/16 Levothyroxine Sodium (Synthroid) 75 Mcg [...] Date/Time Onset Date Status Reason for Hospitalization Weakness 11/07/2016 3:00pm Not Applicable Not Applicable Hx Substance Use No 10/27/2016 10:51am Not Applicable Not Applicable Hx Alcohol Use No 10/27/2016 10:51am Not Applicable Not Applicable Has the pt used tobacco in the last 12 months No 11/04/2016 2:49pm Not Applicable Not Applicable Query Response Start Date Stop Date Smoking Status Former smoker Hospital Discharge Instructions Instructions: Care Instructions: Reason for Hospitalization: Weakness I was in the hospital because (patient own words): To get my stomach drained. Discharge Diet: 2000 KCAL ADA low sodium Discharge Activity: As tolerated Follow Up Appointments: Follow up with Dr Bardales tomorrow as scheduled Follow with Dr Aguilera (At [facility] in [place]) MondayNovember 09. Apt at 1115. Please arrive at 11. Pending Lab / Results: No Pending Lab Wound/Incision Care: Keep wounds covered and dry. Pain Management/Treatment: Tylenol as needed. Expected Signs/Symptoms: Improvement of strenght and functional status. Notify Physician If: Temp >100.4. Ab pain, nausea or vomiting. Worsening breathing. During Business Hours:: Please call the physician's office at After Business Hours:: Please call [phone] and have the sugar cane planting equipment operator page the physician. Condition at time of discharge: Good Plan of Care Discharge Date 11/07/16 3:25pm Disposition 01 DISCHARGED HOME, SELF-CARE Instructions/Education Provided Cirrhosis (DC) Anemia (DC) Prescriptions See Medication Section Care Plan and Goals See Discharge Instructions Section Functional Status Query Response Date Recorded Mobility Status Ambulatory w/assist November 07, 2016 3:00pm Assistive Devices Standard Walker November 07, 2016 3:00pm Activity Limitations None November 07, 2016 3:00pm Feeding Ability Independent November 07, 2016 3:00pm Toileting Ability Assist November 07, 2016 3:00pm Grooming Ability Independent November 07, 2016 3:00pm Dressing Ability Assist November 07, 2016 3:00pm Driving Ability Assist November 07, 2016 3:00pm Housework Ability Assist November 07, 2016 3:00pm Meal Preparation Ability Assist November 07, 2016 3:00pm Stair Climbing Ability Assist November 07, 2016 3:00pm Ability to complete ADL's impeded by No change November 07, 2016 3:00pm Cognitive/Perceptual Impairments Impaired vision November 07, 2016 3:00pm Visual Assistive Devices Glasses November 07, 2016 2:43pm Allergies, Adverse Reactions, Alerts Allergen Type Severity Reaction Status Last Updated Penicillin Adverse Reaction Unknown Active 10/28/16 Morphine Allergy Unknown HALLUCINATIONS Active 10/28/16 Erythromycin base Allergy Unknown Active 10/28/16 Atorvastatin Allergy Unknown Active 10/28/16 Immunizations Query Response on File Recorded Date/Time Hx Influenza Vaccination Y MARCH 2016 11/04/16 2:49pm Hx Pneumococcal Vaccination Y MARCH 2016 11/04/16 2:49pm Hx Influenza Vaccination Y MARCH 2016 11/04/16 2:49pm Influenza Vaccine Hx 03/201610/21/16 12:35pm Vital Signs Acute Vital Signs Vital Response Date/Time Temperature (Fahrenheit) 96.4 deg F (96.8 - 99.1) 11/07/2016 12:23pm Temperature (Calculated Celsius) 35.15862 degrees C (36.0 - 37.3) 11/07/2016 12:23pm Temperature Source Oral 09/30/2016 11:30am Pulse Rate (adult) 64 bpm (60 - 100) 11/07/2016 12:23pm Respiratory Rate 18 breaths/min (10 - 20) 11/07/2016 12:23pm O2 Sat by Pulse Oximetry 100 % (90 - 100) 11/07/2016 12:23pm Oxygen Delivery Method Room Air 11/07/2016 11:55am Oxygen Delivery Method Room Air 11/07/2016 12:23pm Blood Pressure 113/62 mm Hg 11/07/2016 12:23pm Blood Pressure Source Automatic Cuff 11/07/2016 12:23pm Height (Feet) 5 feet 11/07/2016 1:46pm Height (Inches) 10.00 inches 11/07/2016 1:46pm Weight (Kilograms) 77.900 kg 11/07/2016 8:27am Body Mass Index (BMI) 23.9 11/04/2016 2:38pm Results Laboratory Results Test Name Result Units Flags Reference Collection Date/Time Result Date/ Time Comments White Blood Count 3.6 T/MM3 L 4.5-11.0 11/07/2016 4:11/07/2016 4: 56am Red Blood Count 2.99 M/MM3 L 4.50-5.90 11/07/2016 4:11/07/2016 4: 56am Hemoglobin 8.7 GM/DL L 13.5-17.5 11/07/2016 4:11/07/2016 4:56am Hematocrit 26.4 % L 41-53 11/07/2016 4:11/07/2016 4:56am Mean Corpuscular Volume 88.3 UM3 80-100 11/07/2016 4:11/07/2016 4: 56am Mean Corpuscular Hemoglobin 29.1 UUG 26-34 11/07/2016 4:2016 4:56am Mean Corpuscular Hemoglobin Concent 33.0 GM/DL 31-37 11/07/2016 4:11/07/2016 4:56am RDW Standard Deviation 44.6 FL 36.9-50.2 11/07/2016 4:11/07/2016 4 :56am Platelet Count 111 T/MM3 L 130-400 11/07/2016 4:11/07/2016 4:56am Mean Platelet Volume 8.6 UM3 L 9.4-12.4 11/07/2016 4:11/07/2016 4: 56am Neutrophils (%) (Auto) 52.6 % 33-66 11/07/2016 4:11/07/2016 4: 56am Lymphocytes (%) (Auto) 32.5 % 23-45 11/07/2016 4:11/07/2016 4: 56am Monocytes (%) (Auto) 11.6 % H 0-9.0 11/07/2016 4:11/07/2016 4:56am Eosinophils (%) (Auto) 3.0 % 0-4 11/07/2016 4:11/07/2016 4:56am Basophils (%) (Auto) 0.3 % 0-2 11/07/2016 4:11/07/2016 4:56am Immature Granulocyte % (Auto) 0.0 % 0.0-0.5 11/07/2016 4:2016 4:56am Absolute Neutrophils (auto) 1.9 T/MM3 1.8-7.7 11/07/2016 4:2016 4:56am Absolute Lymphocytes (auto) 1.2 T/MM3 1-4.8 11/07/2016 4:2016 4:56am Absolute Monocytes (auto) 0.4 T/MM3 0-0.8 11/07/2016 4:11/07/2016 4:56am Absolute Eosinophils (auto) 0.1 T/MM3 0-0.5 11/07/2016 4:2016 4:56am Absolute Basophils (auto) 0.0 T/MM3 0-0.2 11/07/2016 4:11/07/2016 4:56am Absolute Immature Granulocyte (auto 0.00 T/MM3 0.00-0.03 11/07/2016 4: 11/07/2016 4:56am Prothromb Time International Ratio 1.10 H 0.77-1.03 11/07/2016 4:11/07/2016 5:01am THERAPUTIC RANGE=2.00-3.00 FOR ANTI-THROMBOSIS THERAPUTIC RANGE=2.50-3.50 FOR IMPLANTED VALVE Icterus Index < 2 0-7 11/07/2016 4:11/07/2016 5:10am Chemistry Specimen Hemolysis < 15 0-25 11/07/2016 4:11/07/2016 5 :10am 0-25: Specimen Exhibited No Hemolysis. Turbidity < 20 0-20 11/07/2016 4:11/07/2016 5:10am Sodium Level 134 MEQ/L 134-144 11/07/2016 4:11/07/2016 5:10am Potassium Level 4.4 MEQ/L 3.6-5 11/07/2016 4:11/07/2016 5:10am Chloride Level 100 MEQ/L 98-107 11/07/2016 4:11/07/2016 5:10am Carbon Dioxide Level 26 MEQ/L 22-30 11/07/2016 4:11/07/2016 5: 10am Anion Gap 8 MEQ/L 5-11/07/2016 4:11/07/2016 5:10am Blood Urea Nitrogen 33.0 MG/DL H 9-11/07/2016 4:11/07/2016 5: 10am Creatinine 1.2 MG/DL 0.8-1.5 11/07/2016 4:11/07/2016 5:10am BUN/Creatinine Ratio 28 RATIO H 6-11/07/2016 4:11/07/2016 5: 10am Glomerular Filtration Rate Calc 58 11/07/2016 4:11/07/2016 5: 10am Glucose Level 119 MG/DL H 75-110 11/07/2016 4:11/07/2016 5:10am Calculated Osmolality 266 MOSM/KG 261-280 11/07/2016 4:11/07/2016 5:10am Calcium Level 8.6 MG/DL 8.4-10.2 11/07/2016 4:11/07/2016 5:10am Total Bilirubin 1.40 MG/DL H 0.20-1.30 11/06/2016 5:11/06/2016 6: 08am Alkaline Phosphatase 193 U/L H 38-126 11/06/2016 5:11/06/2016 6: 08am Total Protein 4.8 G/DL L 6.3-8.2 11/06/2016 5:11/06/2016 6:08am Albumin 2.8 G/DL L 3.5-5.0 11/06/2016 5:11/06/2016 6:08am Globulin 2.0 G/DL L 2.4-3.6 11/06/2016 5:11/06/2016 6:08am Albumin/Globulin Ratio 1.4 RATIO 1.1-2.2 11/06/2016 5:03am 11/06/2016 6 :08am Aspartate Amino Transf (AST/SGOT) 41 U/L 17-59 11/06/2016 5:03am 2016 6:08am Alanine Aminotransferase (ALT/SGPT) 48 U/L 21-72 11/06/2016 5:03am 6:08am Troponin I 0.150 ng/ml H 0-0.12 11/06/2016 5:03am 11/06/2016 6:17am Troponin values greater than 0.120 ng/ml are considered a critical value. Troponin values with a difference of 55% increase from orginal troponin value represent a true biological DELTA value. (%increase Calc=Orginal Troponin value, divided by subsequent Troponin value, multiplied by 100) Lactate Dehydrogenase 425 U/L 313-618 11/04/2016 3:35pm 11/04/2016 4: 19pm Magnesium Level 2.1 MG/DL 1.6-2.3 11/04/2016 3:35pm 11/04/2016 4:19pm Ammonia 11 UMOL/L 9-33 11/04/2016 3:35pm 11/04/2016 4:17pm Stool Occult Blood POSITIVE A 11/05/2016 8:20pm 11/05/2016 9:31pm Urine Color YELLOW YELLOW 11/05/2016 9:00am 11/05/2016 9:32am Urine Turbidity CLEAR CLEAR 11/05/2016 9:00am 11/05/2016 9:32am Urine Specific Patrick <=1.005 L 1.015-1.025 11/05/2016 9:00am 2016 9:32am Urine pH 5.5 5.0-8.0 11/05/2016 9:00am 11/05/2016 9:32am Urine Leukocyte Esterase NEGATIVE NEGATIVE 11/05/2016 9:00am 2016 9:32am Urine Nitrite NEGATIVE NEGATIVE 11/05/2016 9:00am 11/05/2016 9:32am Urine Protein NEGATIVE NEGATIVE 11/05/2016 9:00am 11/05/2016 9:32am Urine Glucose (UA) NEGATIVE NEGATIVE 11/05/2016 9:00am 11/05/2016 9: 32am Urine Ketones NEGATIVE NEGATIVE 11/05/2016 9:00am 11/05/2016 9:32am Urine Urobilinogen 0.2 EU/DL NORMAL 11/05/2016 9:00am 11/05/2016 9: 32am Urine Bilirubin NEGATIVE NEGATIVE 11/05/2016 9:00am 11/05/2016 9: 32am Urine Blood NEGATIVE NEGATIVE 11/05/2016 9:00am 11/05/2016 9:32am Urinalysis Comment MICROSCOPIC NOT IND. 11/05/2016 9:00am 2016 9:32am Glucometer 179 mg/dL H 75-110 11/07/2016 12:15pm 11/07/2016 12:22pm Name: CHRIS GAONA Unit #: [id number] : 1935 Sex: M Admit Date: 11/06/16 Loc / Svc: MED Discharge Date: DIAGNOSTIC IMAGING REPORT Report #: [id number] [facility] JOE [place] Indication:ITS.REASON: large volume ascites Procedure:US GUIDE PARACENTESIS, INITIAL PARACENTESIS: The procedure [...] is done from a right lateral approach. 5000 ml of straw colored fluid was taken off without complication. Following this, the patient was transferred back to his room on the medical floor in good condition. Impression: Successful paracentesis performed with 5 L of fluid removed. Jitendra Chappell RPA/ROBINSON performed this under my personal supervision. . Procedures Procedure Status Date Provider(s) Abd paracentesis w/imaging Completed 08/17/16 JITENDRA GORE MD Automated platelet count Completed 08/17/16 Prothrombin time Completed 08/17/16328349"INFUSION, ALBUMIN (HUMAN), 25%, 50 ML" Completed 08/17/16339186"INFUSION, ALBUMIN (HUMAN), 25%, 50 ML" Completed 08/17/16812015"INFUSION, ALBUMIN (HUMAN), 25%, 50 ML" Completed 08/17/16"INFUSION, ALBUMIN (HUMAN), 25%, 50 ML" Completed 08/17/16 Routine venipuncture Completed 09/01/16 Abd paracentesis w/imaging Completed 09/01/16 KEVIN FAIRBANKS MD Automated platelet count Completed 09/01/16 Prothrombin time Completed 09/01/16443248"INFUSION, NORMAL SALINE SOLUTION , 250 CC" Completed 09/01/16788904"INFUSION, ALBUMIN (HUMAN), 25%, 50 ML" Completed 09/01/16174088"INFUSION, ALBUMIN (HUMAN), 25%, 50 ML" Completed 09/01/16209512"INFUSION, ALBUMIN (HUMAN), 25%, 50 ML" Completed 09/01/16442161"INFUSION, ALBUMIN (HUMAN), 25%, 50 ML" Completed 09/01/16 Routine venipuncture Completed 09/08/16 Abd paracentesis w/imaging Completed 09/08/16 JITENDRA GORE MD Automated platelet count Completed 09/08/16 Prothrombin time Completed 09/08/16559974"INFUSION, NORMAL SALINE SOLUTION , 250 CC" Completed 09/08/16528128"INFUSION, ALBUMIN (HUMAN), 25%, 50 ML" Completed 09/08/16 Abd paracentesis w/imaging Completed 09/16/16 JITENDRA GORE MD [id number]"INFUSION, NORMAL SALINE SOLUTION , 250 CC" Completed 09/16/16714900"INFUSION, ALBUMIN (HUMAN), 25%, 50 ML" Completed 09/16/16 Abd paracentesis w/imaging Completed 09/23/16 JITENDRA GORE MD [id number]"INFUSION, NORMAL SALINE SOLUTION , 250 CC" Completed 09/23/16952858"INFUSION, ALBUMIN (HUMAN), 25%, 50 ML" Completed 09/23/16493751"INFUSION, ALBUMIN (HUMAN), 25%, 50 ML" Completed 09/23/16790828"INFUSION, ALBUMIN (HUMAN), 25%, 50 ML" Completed 09/23/16 Routine venipuncture Completed 09/30/16 Abd paracentesis w/imaging Completed 09/30/16 JITENDRA GORE MD Automated platelet count Completed 09/30/16 Prothrombin time Completed 09/30/16980597"INFUSION, NORMAL SALINE SOLUTION , 250 CC" Completed 09/30/16284076"INFUSION, ALBUMIN (HUMAN), 25%, 50 ML" Completed 09/30/16980064"INFUSION, ALBUMIN (HUMAN), 25%, 50 ML" Completed 09/30/16 Abd paracentesis w/imaging Completed 10/07/16 JITENDRA GORE MD [id number]"INFUSION, NORMAL SALINE SOLUTION , 250 CC" Completed 10/07/16830246"INFUSION, ALBUMIN (HUMAN), 25%, 50 ML" Completed 10/07/16732377"INFUSION, ALBUMIN (HUMAN), 25%, 50 ML" Completed 10/07/16251757"INFUSION, ALBUMIN (HUMAN), 25%, 50 ML" Completed 10/07/16038624"INFUSION, NORMAL SALINE SOLUTION , 250 CC" Completed 10/14/16346341"INFUSION, ALBUMIN (HUMAN), 25%, 50 ML" Completed 10/14/16 [id number]"INFUSION, ALBUMIN (HUMAN), 25%, 50 ML" Completed 10/21/16558277"INFUSION, ALBUMIN (HUMAN), 25%, 50 ML" Completed 10/21/16 [id number]"INFUSION, ALBUMIN (HUMAN), 25%, 50 ML" Completed 10/21/16 500089"INFUSION, ALBUMIN (HUMAN), 25%, 50 ML" Completed 10/21/16 Abd paracentesis w/imaging Completed 10/28/16 KEVIN FAIRBANKS MD [id number]"INFUSION, ALBUMIN (HUMAN), 25%, 50 ML" Completed 10/28/16 [id number]"INFUSION, ALBUMIN (HUMAN), 25%, 50 ML" Completed 10/28/16205518"INFUSION, ALBUMIN (HUMAN), 25%, 50 ML" Completed 10/28/16 Encounters Encounter Location Arrival/Admit Date Discharge/Depart Date Attending Provider Discharged Inpatient [facility] 11/06/16 11:40am 11/07/16 3:25pm CHANA BRYANT MD [facility] 10/28/16 10:58am 10/28/16 5:00pm KEVIN FAIRBANKS MD [facility] 10/21/16 10:49am 10/21/16 3:40pm JITENDRA GORE MD Departed [facility] 10/14/16 10:51am 10/14/16 5:45pm [facility] 8:23[facility] 10/07/16 3:02pm [facility] 7:43am 09/30/16 2:45pm [facility]16 10:35am 09/23/16 4:21pm [facility] 10:58am 09/16/16 4:30pm [facility]08[facility]16 12:40pm 09/08/16 6:15pm [facility]01[facility]16 12:12pm 09/01/16 6:15pm [facility]KS [facility]/17/[facility] 11:57am 08/17/16 7:10pm JITENDRA GORE MD
[2016-11-10 12:01] VITALS: Ht 177.8 cm; Wt 76.7 kg
[2016-11-10 12:02] VITALS: BP 136/65; PULSE 67; RESP 15; TEMP 97.7; O2SAT 99
--- NOTE | 2016-11-10 12:23 | ANESPREOP ---
Anesthesia Record Date and Time DATE: 11/10/16 TIME: 12:21 Pre-Op Diagnosis Cirrous of the live with ascites Proposed Surgical Procedure INSERTION OF PLEURX CATHETER TO ABD. CAVITY NPO since: Midnight Allergies: Coded Allergies: atorvastatin (Verified Allergy, Unknown, 11/09/16) erythromycin base (Unverified Allergy, Unknown, 11/09/16) morphine (Verified Allergy, Unknown, HALLUCINATIONS, 11/09/16) Penicillins (Verified Adverse Reaction, Unknown, 11/09/16) Ht/Wt/BMI Height: 5 ' 10.00 " Weight: 76.700 kg BMI: 24.3 kg/m2 Vital Signs Date Time Temp Pulse Resp B/P Pulse Ox O2 Delivery O2 Flow Rate FiO2 11/10/16 12:02 97.7 67 15 136/65 99 Room Air Medications Inpatient Medications Current Medications Medications (Trade) Dose Ordered Sig/Kalina Start Time Stop Time Status Last Admin Dose Admin Lactated Ringer's (Lactated Ringers) 1,000 ml @ 50 mls/hr Q20H 11/10/16 07:00 Ascorbic Acid (Vitamin C) 500 Mg Tablet, 500 MG PO WB Aspirin *EC* (Low Dose Aspirin EC) 81 Mg Tablet.dr, 1 TAB PO DAILY, (Reported) Calcium Carbonate/Vitamin D3 (Calcium + D 600 Mg Tablet) 1 Tab Tablet, 1 TAB PO DAILY, (Reported) Clobetasol Propionate/Emoll (Clobetasol Emollient 0.05% Crm) 15 Gm Cream..g., 1 APPLIC TD BID, (Reported) Cyanocobalamin (Vitamin B-12) 1,000 Mcg Tablet, 1,000 MCG PO DAILY, (Reported) Dimethicone/Latrell/Vit A,C,E/Martin (Gold Burrell Ult Diabetic Cream) 96 Gm Cream..g., 1 APPLIC TD PRN, (Reported) Ferrous Sulfate (Ferrous Sulfate) 324 Mg Tablet, 324 MG PO DAILY, (Reported) Furosemide (Furosemide) 40 Mg Tablet, 1 TAB PO DAILY, (Reported) Insulin Aspart (Novolog Flexpen) 1 Unit Pen, 8 SQ BID, (Reported) Insulin Glargine,Hum.rec.anlog (Lantus Solostar) 1 Unit Pen, 8 UNIT SQ DAILY, ( Reported) Levothyroxine Sodium (Synthroid) 75 Mcg Tablet, 75 MCG PO DAILY, (Reported) Magnesium Oxide (Magnesium) 400 Mg Capsule, 1 TAB PO DAILY, (Reported) Metformin Hcl (Metformin Hcl) 1,000 Mg Tablet, 500 MG PO BID, (Reported) instructed not to take metformin evening before OR Nitroglycerin (Nitroglycerin) 0.4 Mg Tab.subl, 0.4 MG SL for CHEST TIGHTNESS, ( Reported) Omeprazole (Omeprazole) 20 Mg Tablet.dr, 40 MG PO DAILY, (Reported) Take 1 tablet, by mouth, one time a day with breakfast. Spironolactone (Spironolactone) 50 Mg Tablet, 50 MG PO DAILY, (Reported) Tamsulosin HCl (Tamsulosin HCl) 0.4 Mg Cap.er.24h, 0.4 MG PO DAILY, (Reported) Take 1 capsule, by mouth, 1 time a day (at BEDTIME). [Potassium ] , 99 MG PO DAILY, (Reported) Currently on Beta Elieser: No Medical/Surgical History Anesthesia PMH: Reports: *Angina (HX OF 2014), *Diabetes (type 2), * Hypertension (TAKES MEDS), *NV (AUGUST 2011), Arthritis, CHF, Cancer (prostate, skin ca), Pneumonia (AUGUST 2011), Reflux (ON MEDS), Thyroid Disease (TAKES MEDS) , Denies: *Dyspnea, Anesthesia Reactions (NO AIRWAY ISSUES), Asthma, Blood Transfusion Reac, COPD, CVA/Stroke/TIA, Clotting Problems, Deep Vein Thrombosis , Glaucoma, Headaches, Hepatitis, Hiatal Hernia, Malignant Hyperthermia, Renal Disease, Rheumatic Fever, Seizures, Sleep Apnea, Tuberculosis Smoking Status: Former smoker Has pt. smoked today?: No Use Chewing Tobacco?: No Second Hand Exposure: No Substance Use Type: does not use Alcohol Intake: none Past Surgical History Orthopedic Surgeries: No Abdominal Surgeries: Yes - COLONOSCOPY, PARACENTESIS Genitourinary Surgeries: Yes - RADICAL PROSTATECTOMY Cardiac Surgeries: Yes - heart cathx1 Endocrine Surgeries: No Reproductive Surgeries: No Neurological Surgeries: No Ear Surgeries: No Nose Surgeries: No Throat Surgeries: No Other Surgeries: Yes - RT CATARACT REMOVED Anesthesia Adverse Reactions: FOUND none Family Hx of Anesthesia Advers: none Hx of Motion Sickness: No Pertinent Findings EKG Rhythm: Sinus Rhythm, Bundle Branch Block, 1st Degree HB Physical Exam Respiratory: Lungs clear Cardiovascular: FOUND Regular rate, rhythm Airway Assessment Mallampati Score: II TMD: 3 Fingerbreadths Neck Extension: Poor Overall Assessment: May Be Diff Mask Vent., May Be Diff Intubation ASA: 3 Plan Anesthesia Plan: TIVA, MAC Discussion Discussed risks/options/alternatives of anesthesia and questions answered. Patient consents. Nursing pain assessment noted. Present: Family Member Attestation Statement Prior to the delivery of any anesthetic medication, I examined the patient, developed the plan, obtained the patient's consent and discussed the risk and benefits of the procedure with the patient/guardian. KYE FUNG FILM WRITER November 10, 2016 12:23
[2016-11-10 12:38] LABS: ANION GAP 11 MEQ/L (5-15); BUN/CREATININE RATIO 26 RATIO (6-26); CALCIUM 9.3 MG/DL (8.4-10.2); CHLORIDE 98 MEQ/L (98-107); CO2 - CARBON DIOXIDE 26 MEQ/L (22-30); CREATININE 1.4 MG/DL (0.8-1.5); GLOMERULAR FILTRATION RATE 49; GLUCOSE 132 MG/DL (75-110); POTASSIUM 4.3 MEQ/L (3.6-5); SODIUM 135 MEQ/L (134-144)
[2016-11-10] MEDS ORDERED: BUPIVACAINE 0.25%/EPI 1:200,000 30ml SDV ONE (13:40)
[2016-11-10] MEDS ORDERED: MIDAZOLAM 2mg/2ml INJECTION ONE (13:40)
[2016-11-10] MEDS ORDERED: FENTANYL 100mcg/2ml INJECTION ONE (14:04)
[2016-11-10 14:50] VITALS: BP 113/59; PULSE 63; RESP 16; TEMP 97.8; O2SAT 99
[2016-11-10 15:05] VITALS: BP 104/59; PULSE 60; RESP 12; O2SAT 100
[2016-11-10 15:20] VITALS: BP 106/55; PULSE 64; RESP 15; O2SAT 98
--- NOTE | 2016-11-10 15:23 | ANESPO ---
Post-Op Note Date 11/10/16 Time: 15:00 Status Pt Participated in Evaluation: Pt participated in person Vital Signs Date Time Temp Pulse Resp B/P Pulse Ox O2 Delivery O2 Flow Rate FiO2 11/10/16 15:05 60 12 104/59 100 Room Air 11/10/16 14:50 97.8 Respiratory Function: Airway patent Cardiovascular Function: Regular pulse Telemetry Pattern: SR Mental Status: Alert/oriented Pain Level Intensity: 0 Hydration: Taking po fluids Complications during Recovery None apparent Follow-Up Instructions Instructions Per Surgeon KYE FUNG CRNA November 10, 2016 15:23
[2016-11-10 15:35] VITALS: BP 105/55; PULSE 56; RESP 12; O2SAT 99
--- NOTE | 2016-11-10 15:48 | DI ---
Indication: ITS.REASON: PLEURX CATHETER PLACEMENT PROCEDURE: RF KUB: Encounter: Initial Comparison: None Findings: Single fluoroscopic spot image of the right pelvis shows a catheter projecting over the iliac bone and sacrum. Impression: Fluoroscopy as above. Fluoroscopy time is 67 seconds. Fluoroscopy dose is 1590 mRad. .
--- NOTE | 2016-11-11 11:37 | OPNOTEF ---
DATE OF PROCEDURE. 11/10/2016 SURGEON Silverio Aguilera MD PREOPERATIVE DIAGNOSIS History for cirrhosis of the liver, history for recurrent ascites requiring multiple paracentesis. POSTOPERATIVE DIAGNOSIS History for cirrhosis of the liver, history for recurrent ascites requiring multiple paracentesis. PROCEDURE Insertion of peritoneal PleurX catheter. ANESTHESIA TIVA BRIEF HISTORY/INDICATIONS Mr. Stratton is a 81-year-old gentleman who was hospitalized over the course of this last weekend at our institution as a result of his marked anemia. The patient does have a significant medical history including cirrhosis of the liver. He has been undergoing frequent paracentesis as a result of his symptomatic ascites. Family has opted to be more conservative/palliative in nature. Discussion is being undertaken with hospice and home health care to try to keep the patient comfortable and in his home. They have been spending perhaps 6-8 hours a week traveling to [place] to have paracentesis performed. As a result of the above indications, it was recommended to the patient and his family that he did undergo placement of a peritoneal PleurX catheter to facilitate his palliative care. For completeness, please refer to notes included in the patient's chart. DESCRIPTION OF PROCEDURE After informed consent was obtained, the patient was brought to the operative suite and placed on the table in supine fashion. Right lateral abdominal wall was then prepped and draped in sterile fashion. Formal time-out was then completed. 0.25% Marcaine with epinephrine was injected along the right lateral mid abdominal wall. A 4-5 mm incision was then made overlying the area of analgesia. A 22-gauge needle was then introduced through the small incision and additional local anesthetic was injected within the abdominal wall and at the peritoneal level. A small needle was then advanced into the peritoneal cavity with aspiration. Straw-colored fluid was obtained. Next a Cook needle and Angiocath was then advanced in a similar fashion through the small incision into the peritoneal cavity with aspiration. Straw-colored fluid was again obtained. The Cook needle was removed over the Angiocath as the Angiocath was advanced into the peritoneal cavity. A guidewire was advanced through the Angiocath. Fluoroscopy was then performed which revealed the guidewire to be entering into the peritoneal cavity and coursing towards the pelvis. Next, additional 0.25% Marcaine with epinephrine was injected upon the right anterior abdominal wall 5-6 cm anterior to the original incision. Additional 0.25% Marcaine was then injected between the two sites. An 8 mm incision was then made overlying the new area of analgesia. A hemostat was then advanced from one small incision into the next. The peritoneal catheter was then grasped and brought forth through the incision anteriorly out through the incision more posteriorly. Next, the dilators were utilized and advanced over the guidewire sequentially resulting in dilatation of the lateral abdominal wall adjacent to the guidewire. The guidewire and dilator were then removed. The tear-away sheath was left in place. The PleurX catheter was then placed through the tear-away sheath and the tear-away sheath was then removed. Fluoroscopy was then performed and also revealed the PleurX catheter to be coursing in towards the pelvic region. The incision along the right lateral abdominal wall was then closed in a running fashion with the suture provided within the PleurX kit. This was performed with the 4-0 "catgut " that was present. The PleurX catheter itself was then secured to the anterior abdominal wall through its exit site with 2-0 silk that was included within the surgical kit. Catheter was placed to make sure that the Dacron cuff was about 2 cm beyond the exit site within the subcutaneous tissues. The catheter was then attached to the PleurX bottles and a total of about 3,000 ml of straw-colored fluid was aspirated without difficulty. The patient was then sent to the recovery room once deemed in stable condition. [facility]
== END 2016-11-10 15:45 | disposition home or self-care (01) ==
LOC: SCU 11:29
PROVIDERS: ATTEND Surgery
DX: R18.8 Other ascites (principal); D64.9 Anemia, unspecified; K74.60 Unspecified cirrhosis of liver; Z51.5 Encounter for palliative care; I25.10 Atherosclerotic heart disease of native coronary artery without angina pectoris; E11.9 Type 2 diabetes mellitus without complications; I48.91 Unspecified atrial fibrillation; Z85.46 Personal history of malignant neoplasm of prostate; Z79.82 Long term (current) use of aspirin; Z79.84 Long term (current) use of oral hypoglycemic drugs; Z79.899 Other long term (current) drug therapy; Z87.891 Personal history of nicotine dependence
CPT/HCPCS: 36415; 49418; 74000; 76000; 80048; 93005; A7048; J1956; J2250; J3010; J7060; J7120